=== PATIENT | female | born 1960 | race Caucasian/White ===

== ENCOUNTER 2018-09-02 21:08 | Observation (INO) | payer SELFPAY ==
[2018-09-02 21:08] VITALS: BMI 31.6
[2018-09-02] MEDS ORDERED: Sodium Chloride 0.9% 1,000 ML IV STA (21:59)
[2018-09-02] MEDS ORDERED: Morphine 4 MG/ML VIAL ONE ×2 (22:00→23:45)
--- NOTE | 2018-09-02 22:08 | ED PDOC ---
HPI: General Adult Time Seen by Provider: 09/02/18 21:37 Chief Complaint (Nursing): Upper Extremity Problem/Injury Chief Complaint (Provider): Right sided chest pain History Per: Patient History/Exam Limitations: no limitations Onset/Duration Of Symptoms: Intermittent Episodes, Persistent Current Symptoms Are (Timing): Still Present Additional History Per: Patient Additional Complaint(s): 57yo female, with history of breast cancer and subsequent right mastectomy, hyperthyroidsm, dislipidemia, comes to ER reporting a right sided ch est pain, present intermittently since june. Patient states the pain is right below her right axilla and states she had a work[place] done [place] [facility] CT which revealed a "lump in the area". Patient was then discharged home with Percocet and Decadron, which she has been taking with no relief. Patient reports the pain as sharp and stabbing, and is associated with a poor appetite. She states the pain radiates to right arm, and worsens with deep inspiration and movement. No fever, chills, cough, abdominal pain. No additional complaints. PMD: Dr. Swanson Oncologist: Dr. Goodman Past Medical History Reviewed: Historical Data, Nursing Documentation, Vital Signs Vital Signs: Last Vital Signs Temp 98.3 F 09/02/18 21:23 Pulse 77 09/02/18 21:23 Resp 16 09/02/18 21:23 BP 162/106 H 09/02/18 21:23 Pulse Ox 98 09/02/18 21:23 - Medical History PMH: Hyperthyroidism, Malignancy (breast cancer, diagnosed 2012) - Surgical History Other surgeries: right mastectomy; tubal ligation - Family History Family History: States: No Known Family Hx - Living Arrangements Living Arrangements: With Family - Home Medications Home Medications: Ambulatory Orders Medication Instructions Recorded RX: Dexamethasone [Decadron] 4 mg PO TID 09/02/18 RX: Letrozole [Femara] 2.5 mg PO DAILY 09/02/18 RX: Oxycodone HCl/Acetaminophen 1 tab PO Q6 PRN 09/02/18 [Endocet 10-325 mg Tablet] methIMAzole [Tapazole] 2.5 mg PO DAILY 09/02/18 - Allergies Allergies/Adverse Reactions: Allergies Allergy/AdvReac Type Severity Reaction Status Date / Time No Known Allergies Allergy Verified 02/12/19 21:18 Review of Systems ROS Statement: Except As Marked, All Systems Reviewed And Found Negative Constitutional: Negative for: Fever, Chills Cardiovascular: Positive for: Chest Pain Respiratory: Negative for: Cough, Shortness of Breath Musculoskeletal: Positive for: Arm Pain (right ) Physical Exam - Reviewed Nursing Documentation Reviewed: Yes Vital Signs Reviewed: Yes - Physical Exam Appears: Positive for: Non-toxic, No Acute Distress Head Exam: Positive for: ATRAUMATIC, NORMAL INSPECTION, NORMOCEPHALIC Skin: Positive for: Normal Color Eye Exam: Positive for: Normal appearance Neck: Positive for: Supple Cardiovascular/Chest: Positive for: Regular Rate, Rhythm, Other (tednerness to right infraaxilliary regon; +right mastectomy) Respiratory: Positive for: Normal Breath Sounds. Negative for: Wheezing Gastrointestinal/Abdominal: Positive for: Normal Exam, Soft Extremity: Positive for: Normal ROM Lymphatic: Negative for: Adenopathy Neurologic/Psych: Positive for: Alert, Oriented - Laboratory Results Result Diagrams: 09/03/18 06:05 09/03/18 06:05 - ECG O2 Sat by Pulse Oximetry: 98 (RA) Pulse Ox Interpretation: Normal Medical Decision Making Medical Decision Makinyo female with right sided chest wall pain, with history of breast cancer Plan: -- Labs -- EKG -- Morphine 4mg IV -- Zofran 4mg IV -- IV Fluids 23:00 Patient case discussed with Dr. Adonis Goodman who advises patient will require additional work up for chest wall mass. Had discussion with ED physicians [place] [facility] and was under the impression patient would have a biopsy of the mass, however, biopsy was not performed. Given worsening pain as well as significant findings on CT patient will have repeat CT today. Patient will be admitted case referred to Dr. Chapman. Diagnosis is chest wall mass. Scribe Attestation: Documented by Viridiana Jerry acting as a scribe for Andrew Juarez MD. Provider Attestation: All medical record entries made by the Scribe were at my direction and personally dictated by me. I have reviewed the chart and agree that the record accurately reflects my personal performance of the history, physical exam, medical decision making, and the department course for this patient. I have also personally directed, reviewed, and agree with the discharge instructions and disposition. Disposition - Clinical Impression Clinical Impression: Mass of chest wall - Patient ED Disposition Is Patient to be Admitted: Yes Discussed With DrSharyn: Randi Goodman (Dr Chapman) - Disposition Disposition Time: 23:30 Condition: FAIR
[2018-09-02 22:19] LABS: BASO % 0.3 % (0.0-2.0); EOS % 0.1 % (0.0-4.0); HEMOGLOBIN 13.1 g/dL (12.0-16.0); LYMPH # 1.2 K/uL (1.0-4.3); LYMPH % 9.3 % (20.0-40.0); MEAN CELL VOLUME 85.3 fl (81.0-99.0); MEAN CORPUSCULAR HEMOGLOBIN 27.7 pg (27.0-31.0); MEAN CORPUSCULAR HGB CONC 32.4 g/dL (33.0-37.0); MEAN PLATELET VOLUME 8.3 fl (7.2-11.7); MONO # 0.4 K/uL (0.0-0.8); MONO % 3.4 % (0.0-10.0); NEUT % 86.9 % (50.0-75.0); PLATELET COUNT 349 K/uL (130-400); RBC 4.73 Mil/uL (3.80-5.20); RED CELL DISTRIBUTION WIDTH 13.7 % (11.5-14.5); WHITE BLOOD COUNT 12.6 K/uL (4.8-10.8)
[2018-09-02 22:26] LABS: INR 1.1; PROTHROMBIN TIME 12.7 Seconds (9.8-13.1)
[2018-09-02 22:28] LABS: PARTIAL THROMBOPLASTIN TIME 27.5 Seconds (25.6-37.1)
[2018-09-02 22:30] LABS: ALB/GLOB RATIO 1.2 (1.0-2.1); ALBUMIN 4.2 g/dL (3.5-5.0); ALT/SGPT 20 U/L (9-52); AST/SGOT 32 U/L (14-36); BLOOD UREA NITROGEN 28 mg/dl (7-17); CALCIUM 9.6 mg/dL (8.4-10.2); GFR NON-AFRICAN AMERICAN > 60
[2018-09-02] MEDS ORDERED: Morphine 4 MG/ML VIAL IVP ONE ×2 (23:00→23:42)
[2018-09-02] MEDS ORDERED: Iohexol 300 100 ML IJ ONE (23:09)
[2018-09-02] MEDS ORDERED: Sodium Chloride 0.9% 50 ML IV ONE (23:09)
[2018-09-02 23:29] LABS: BANDS 2 % (0-2); HYPOCHROMIC SLIGHT; LYMPHOCYTE 10 % (20-50); MICROCYTOSIS SLIGHT; MONOCYTE 6 % (0-10); NEUTROPHIL 82 % (42-75); PLATELET ESTIMATE NORMAL (NORMAL); TOTAL CELLS COUNTED 100
[2018-09-02 23:30] LABS: SMUDGE CELLS PRESENT
[2018-09-02 23:48] LABS: SQUAMOUS EPITHIAL 2 /hpf (0-5); URINE BILIRUBIN NEGATIVE (NEGATIVE); URINE BLOOD NEGATIVE (NEGATIVE); URINE CLARITY CLEAR (Clear); URINE COLOR STRAW (YELLOW); URINE GLUCOSE (UA) NEG (NEGATIVE); URINE LEUKOCYTE ESTERASE TRACE Leu/uL (Negative); URINE PROTEIN NEGATIVE (NEGATIVE); URINE UROBILINOGEN 0.2-1.0 mg/dL (0.2-1.0)
--- NOTE | 2018-09-03 00:25 | CP.PCM.HP ---
<Jeannie Lynch - Last Filed: 09/03/18 03:13> History of Present Illness - History of Present Illness History of Present Illness: 57 yo F with history of hyperthyroidism, dyslipidemia (does not take meds) and breast cancer dx in 2012 with subsequent right mastectomy and chemotherapy, admitted for chest wall mass. Patient came to ED with right sided chest pain (as well as right sided upper back pain), states pain is 10/10, and constant, has bouts of worsening throughout the day, radiates to right shoulder, and is worse with movement. She states pain has been present throughout the month of July into August and that she has been to [facility] 3 times, last two times were 08/27 (sent home 08/28 with decadron and percocet and instucted to follow up with her oncologist) but when she felt no relief, she went back on Wednesday 08/30 but was discharged from ED. Patient states that she had a CT scan done at [facility] ED that revealed a lump in right chest/axilla (?), but does not have report with her. Reports she has been taking prescribed medications decadron and percocet but without relief, and since her oncologist is affiliated with [facility], came here instead. She also reports intermittent nausea, but no vomiting. Also endorses episodic constipation. Denies fevers, chills, cough, headache, central chest pain, diaphoresis, shortness of breath, abdominal pain, dysuria, diarrhea. States she has not taken her regular medications since 08/30. PMD: Dr. wSanson Oncologist: Dr. Hugh Goodman Past Med hx: hyperthyroidism, breast ca Past Surg hx: right sided mastectomy, BTL Social hx: former smoker (4-5 cig/day x 15 yrs, quit before her cancer diagnosis), denies alcohol or drug use. Lives at home with her daughter. Fam hx: no family history of cancer Allergies: nkda Medications: home meds tapazole (methimazole 2.5 mg daily), Letrozole 2.5 mg daily; Vitamin D. Recent prescriptions from [facility] decadron 4 mg tab TID, endocet (oxycodone/acetaminophen) 10-325mg. NOK, Son, Stephen Denise; [phone] Code Status: Full code ED course: Vitals: BP 162/106 (likely pain induced, as BP came down to 137/90 without antihypertensive med), HR 77, O2 sat 98, Sancho 98.3, RR 16 EKG: NSR at 64 bpm CBC WBC 12.6 CMP BUN 28, relatively unremarkable Coags PT 12.7 INR 1.1 UA trace LE, neg nitrates Received: zofran 4 mg x1 morphine 4 mg x1 morphine 6 mg x1 1L NS bolus ED attending discussed case with Dr. Adonis Goodman who advised patient will require additional work up for chest wall mass. As per ED: Oncologist had discussion with ED physicians at [facility] and was under the impression patient would have a biopsy of the mass, however, biopsy was not performed. Given worsening pain as well as significant findings on CT patient will have repeat CT today. Chest/Neck CT done Present on Admission - Present on Admission Any Indicators Present on Admission: No Review of Systems - Constitutional Constitutional: absent: Chills, Fever - Breasts Breasts: As Per HPI - Cardiovascular Cardiovascular: absent: Chest Pain - Respiratory Respiratory: absent: Cough, Dyspnea - Gastrointestinal Gastrointestinal: Constipation, Nausea. absent: Abdominal Pain, Melena, Vomiting - Genitourinary Genitourinary: absent: Dysuria, Hematuria - Musculoskeletal Musculoskeletal: As Per HPI Past Patient History - Past Social History Smoking Status: Former Smoker Alcohol: None Drugs: Denies Home Situation {Lives}: With Family - CARDIAC Hx Cardiac Disorders: Yes - PULMONARY Hx Respiratory Disorders: No - NEUROLOGICAL Hx Neurological Disorder: No - HEENT Hx HEENT Problems: No - RENAL Hx Chronic Kidney Disease: No - ENDOCRINE/METABOLIC Hx Hyperthyroidism: Yes - HEMATOLOGICAL/ONCOLOGICAL Hx Cancer: Yes (breast) - INTEGUMENTARY Hx Dermatological Problems: No - MUSCULOSKELETAL/RHEUMATOLOGICAL Hx Musculoskeletal Disorders: No - GASTROINTESTINAL Hx Gastrointestinal Disorders: No - GENITOURINARY/GYNECOLOGICAL Hx Genitourinary Disorders: No - PSYCHIATRIC Hx Psychophysiologic Disorder: No Hx Substance Use: No - SURGICAL HISTORY Hx Liver Transplant: No Hx Mastectomy: Yes Meds Allergies/Adverse Reactions: Allergies Allergy/AdvReac Type Severity Reaction Status Date / Time No Known Allergies Allergy Verified 09/02/18 21:18 Physical Exam - Constitutional Additional comments: uncomfortable - Eye Exam Eye Exam: Normal appearance - ENT Exam ENT Exam: Mucous Membranes Moist - Neck Exam Neck exam: Positive for: Full Rom - Respiratory Exam Respiratory Exam: Clear to Auscultation Bilateral, NORMAL BREATHING PATTERN. absent: Wheezes, Respiratory Distress - Cardiovascular Exam Cardiovascular Exam: REGULAR RHYTHM, +S1, +S2 - GI/Abdominal Exam GI & Abdominal Exam: Normal Bowel Sounds, Soft. absent: Tenderness - Extremities Exam Extremities exam: Negative for: calf tenderness, pedal edema - Back Exam Additional comments: pain on palpation along right hemithorax, along anterior as well - Neurological Exam Neurological exam: Alert, Oriented x3 - Skin Skin Exam: Dry - Additional Findings Additional findings: pain on palpation of right sided hemothorax, anterior and posterior difficult to palpate right sided axilla due to patient discomfort Results - Vital Signs Recent Vital Signs: Last Vital Signs Temp 98.5 F 09/03/18 00:02 Pulse 72 09/03/18 00:02 Resp 16 09/03/18 00:02 BP 137/90 09/03/18 00:02 Pulse Ox 99 09/03/18 00:02 - Labs Result Diagrams: 09/02/18 22:08 09/02/18 22:08 Labs: Laboratory Results - last 24 hr 09/02/18 09/02/18 09/02/18 22:08 22:08 22:08 WBC 12.6 H RBC 4.73 Hgb 13.1 Hct 40.3 MCV 85.3 MCH 27.7 MCHC 32.4 L RDW 13.7 Plt Count 349 MPV 8.3 Neut % (Auto) 86.9 H Lymph % (Auto) 9.3 L [place] % (Auto) 3.4 Eos % (Auto) 0.1 Baso % (Auto) 0.3 Neut # (Auto) 11.0 H Lymph # (Auto) 1.2 [place] # (Auto) 0.4 Eos # (Auto) 0.0 Baso # (Auto) 0.0 Neutrophils % (Manual) 82 H Band Neutrophils % 2 Lymphocytes % (Manual) 10 L Monocytes % (Manual) 6 Smudge Cells Present Platelet Estimate Normal Hypochromasia (manual) Slight Microcytosis (manual) Slight PT 12.7 INR 1.1 APTT 27.5 Sodium 136 Potassium 4.8 Chloride 97 L Carbon Dioxide 27 Anion Gap 17 BUN 28 H Creatinine 0.9 Est GFR ( Amer) > 60 Est GFR (Non-Af Amer) > 60 Random Glucose 112 H Calcium 9.6 Total Bilirubin 0.5 AST 32 ALT 20 Alkaline Phosphatase 109 Total Protein 7.9 Albumin 4.2 Globulin 3.7 Albumin/Globulin Ratio 1.2 Urine Color Urine Clarity Urine pH Ur Specific [place] Urine Protein Urine Glucose (UA) Urine Ketones Urine Blood Urine Nitrate Urine Bilirubin Urine Urobilinogen Ur Leukocyte Esterase Urine RBC (Auto) Urine Microscopic WBC Ur Squamous Epith Cells 09/02/18 23:43 WBC RBC Hgb Hct MCV MCH MCHC RDW Plt Count MPV Neut % (Auto) Lymph % (Auto) [place] % (Auto) Eos % (Auto) Baso % (Auto) Neut # (Auto) Lymph # (Auto) [place] # (Auto) Eos # (Auto) Baso # (Auto) Neutrophils % (Manual) Band Neutrophils % Lymphocytes % (Manual) Monocytes % (Manual) Smudge Cells Platelet Estimate Hypochromasia (manual) Microcytosis (manual) PT INR APTT Sodium Potassium Chloride Carbon Dioxide Anion Gap BUN Creatinine Est GFR ( Amer) Est GFR (Non-Af Amer) Random Glucose Calcium Total Bilirubin AST ALT Alkaline Phosphatase Total Protein Albumin Globulin Albumin/Globulin Ratio Urine Color Straw Urine Clarity Clear Urine pH 7.0 Ur Specific [place] 1.017 Urine Protein Negative Urine Glucose (UA) Neg Urine Ketones Negative Urine Blood Negative Urine Nitrate Negative Urine Bilirubin Negative Urine Urobilinogen 0.2-1.0 Ur Leukocyte Esterase Trace Urine RBC (Auto) < 1 Urine Microscopic WBC 3 Ur Squamous Epith Cells 2 Assessment & Plan - Assessment and Plan (Free Text) Assessment: 57 yo F with history of hyperthyroidism, dyslipidemia and breast cancer; with recent CT at [facility] that showed chest wall mass; admitted for workup of chest wall mass. Plan: Chest Wall Mass - Hx breast cancer, chemotherapy and right sided mastectomy - Oncology consult - Dr. Hugh Goodman; recs/input appreciated - F/u results of CT done in ED - Pain control w/ morphine scale, starting with 1 mg q4hrs prn for mild, 2 mg q4hrs prn for mod, 4 mg q4hrs prn for severe pain; reassess pain scale as needed - NPO for possible biopsy Nausea - Zofran 4 mg q6hrs prn Leukocytosis - WBC 12, may be reactive, no other signs/symptoms infection - Monitor on CBC Elevated BUN - NS @ 100 ml/hr - BMP in am Hyperthyroidism - Resume home med tapazole Diet - NPO for possible biopsy in am; otherwise heart healthy diet DVT prophylaxis - SCD for now Code Status - NOK/surrogate decision maker: son, Stephen Denise; [phone] - Code Status: Full code Pt seen/discussed w/ Dr. Chapman. <Gilbert Chapman - Last Filed: 09/03/18 07:44> Results - Vital Signs Recent Vital Signs: Last Vital Signs Temp 97.7 F 09/03/18 00:53 Pulse 61 09/03/18 00:53 Resp 18 09/03/18 00:53 BP 151/89 H 09/03/18 00:53 Pulse Ox 95 09/03/18 00:53 - Labs Result Diagrams: 09/03/18 06:05 09/03/18 06:05 Labs: Laboratory Results - last 24 hr 09/02/18 09/02/18 09/02/18 22:08 22:08 22:08 WBC 12.6 H RBC 4.73 Hgb 13.1 Hct 40.3 MCV 85.3 MCH 27.7 MCHC 32.4 L RDW 13.7 Plt Count 349 MPV 8.3 Neut % (Auto) 86.9 H Lymph % (Auto) 9.3 L [place] % (Auto) 3.4 Eos % (Auto) 0.1 Baso % (Auto) 0.3 Neut # (Auto) 11.0 H Lymph # (Auto) 1.2 [place] # (Auto) 0.4 Eos # (Auto) 0.0 Baso # (Auto) 0.0 Neutrophils % (Manual) 82 H Band Neutrophils % 2 Lymphocytes % (Manual) 10 L Monocytes % (Manual) 6 Smudge Cells Present Platelet Estimate Normal Hypochromasia (manual) Slight Microcytosis (manual) Slight PT 12.7 INR 1.1 APTT 27.5 Sodium 136 Potassium 4.8 Chloride 97 L Carbon Dioxide 27 Anion Gap 17 BUN 28 H Creatinine 0.9 Est GFR ( Amer) > 60 Est GFR (Non-Af Amer) > 60 Random Glucose 112 H Calcium 9.6 Total Bilirubin 0.5 AST 32 ALT 20 Alkaline Phosphatase 109 Total Protein 7.9 Albumin 4.2 Globulin 3.7 Albumin/Globulin Ratio 1.2 Urine Color Urine Clarity Urine pH Ur Specific [place] Urine Protein Urine Glucose (UA) Urine Ketones Urine Blood Urine Nitrate Urine Bilirubin Urine Urobilinogen Ur Leukocyte Esterase Urine RBC (Auto) Urine Microscopic WBC Ur Squamous Epith Cells 09/02/18 09/03/18 09/03/18 23:43 06:05 06:05 WBC 12.4 H RBC 4.45 Hgb 12.2 Hct 38.1 MCV 85.5 MCH 27.5 MCHC 32.2 L RDW 14.1 Plt Count 320 MPV 8.1 Neut % (Auto) 81.4 H Lymph % (Auto) 11.6 L [place] % (Auto) 6.9 Eos % (Auto) 0.0 Baso % (Auto) 0.1 Neut # (Auto) 10.1 H Lymph # (Auto) 1.4 [place] # (Auto) 0.9 H Eos # (Auto) 0.0 Baso # (Auto) 0.0 Neutrophils % (Manual) Band Neutrophils % Lymphocytes % (Manual) Monocytes % (Manual) Smudge Cells Platelet Estimate Hypochromasia (manual) Microcytosis (manual) PT INR APTT Sodium 137 Potassium 4.6 Chloride 100 Carbon Dioxide 28 Anion Gap 14 BUN 24 H Creatinine 0.9 Est GFR ( Amer) > 60 Est GFR (Non-Af Amer) > 60 Random Glucose 98 Calcium 9.1 Total Bilirubin AST ALT Alkaline Phosphatase Total Protein Albumin Globulin Albumin/Globulin Ratio Urine Color Straw Urine Clarity Clear Urine pH 7.0 Ur Specific [place] 1.017 Urine Protein Negative Urine Glucose (UA) Neg Urine Ketones Negative Urine Blood Negative Urine Nitrate Negative Urine Bilirubin Negative Urine Urobilinogen 0.2-1.0 Ur Leukocyte Esterase Trace Urine RBC (Auto) < 1 Urine Microscopic WBC 3 Ur Squamous Epith Cells 2 Attending/Attestation - Attestation I have personally seen and examined this patient.: Yes I have fully participated in the care of the patient.: Yes I have reviewed all pertinent clinical information: Yes Notes (Text): 09/03/18 07:14 I saw, examined and discussed this patient with Dr Corbin. I agree with the assessment and plan outlined above. This 57 years old female with hx of Breast Ca, Dx 2013 with mastectomy and chemotherapy. She comes with pain to the anterior and posterior right chest wall, the lateral right chest wall and psignificant pain with swelling at the left axilla. CT scan of Chest: Increase in the size of the metastatic right subclavian lymhadenopathy. Interval appearance of neoplastic infiltration of the right lower lobe. Interval appearance of neoplastic infiltration of the base of the right pleura. Interval appearance of right hilar lymphadenopathy. probably metastatic. The patient will be treated with pain management for intractable chest pain due to Metastatic breast Cancer. Palliative consult is appropriate Dr Goodman oncologist is consulted Treat Hyperthyroidism Gilbert Chapman MD
[2018-09-03] MEDS ORDERED: Morphine 4 MG/ML VIAL IVP PRN (00:33)
[2018-09-03] MEDS: Sodium Chloride 0.9% 1,000 ML IV SCH ×3 (00:54→20:14)
[2018-09-03] MEDS: Morphine 4 MG/ML VIAL IVP PRN ×5 (01:57→16:53)
[2018-09-03 06:28] LABS: BASO % 0.1 % (0.0-2.0); HEMOGLOBIN 12.2 g/dL (12.0-16.0); LYMPH # 1.4 K/uL (1.0-4.3); LYMPH % 11.6 % (20.0-40.0); MEAN CELL VOLUME 85.5 fl (81.0-99.0); MEAN CORPUSCULAR HEMOGLOBIN 27.5 pg (27.0-31.0); MEAN CORPUSCULAR HGB CONC 32.2 g/dL (33.0-37.0); MEAN PLATELET VOLUME 8.1 fl (7.2-11.7); MONO # 0.9 K/uL (0.0-0.8); MONO % 6.9 % (0.0-10.0); NEUT # 10.1 K/uL (1.8-7.0); NEUT % 81.4 % (50.0-75.0); RBC 4.45 Mil/uL (3.80-5.20); RED CELL DISTRIBUTION WIDTH 14.1 % (11.5-14.5); WHITE BLOOD COUNT 12.4 K/uL (4.8-10.8)
[2018-09-03 06:37] LABS: BLOOD UREA NITROGEN 24 mg/dl (7-17); CALCIUM 9.1 mg/dL (8.4-10.2); GFR NON-AFRICAN AMERICAN > 60
[2018-09-03] MEDS: methIMAzole 5 MG TAB PO SCH (08:20)
--- NOTE | 2018-09-03 10:00 | CARD ---
APPROVED REPORT Date of service: 09/02/2018 EKG Measurement Heart [id number] <Conclusion> Normal sinus rhythm Normal ECG
--- NOTE | 2018-09-03 10:54 | CP.PCM.CON ---
History of Present Illness - History of Present Illness History of Present Illness: This is a 57 yrs old female who in 2012 had a infiltrating ductal right breast carcinoma. She had a radical mastectomy and was followed by chemotherapy. She had involvement of the axillary nodes and she was HER negative and ER positive. She had no distant metastasis. She was on letrozole until now. She has been followed up as an outpatient and has been stable. A CT scan done in aug 2017 was negative for metastasis and recurrence . She was admitted to [facility] a few times for pancreatitis, but never had any breast problems. Now she started c/o pain and swelling in the right arm, and even thougt he swelling went down a little the pain is very severe. The pain is in the right chest wall, anterior chest, back and severe down the axilla and the right arm.. A CT scan done in the ER showed a right hilar adenopathy, and nodules in both lungs , more on the lower lobe of right lung. There is increased adenopathy around the subclavian which may be responsible for the pain. Does not smoke or drink Past Patient History - Past Medical History & Family History Past Medical History?: Yes - Past Social History Smoking Status: Former Smoker Alcohol: None Drugs: Denies Home Situation {Lives}: With Family - CARDIAC Hx Cardiac Disorders: Yes - PULMONARY Hx Respiratory Disorders: No - NEUROLOGICAL Hx Neurological Disorder: No - HEENT Hx HEENT Problems: No - RENAL Hx Chronic Kidney Disease: No - ENDOCRINE/METABOLIC Hx Hyperthyroidism: Yes - HEMATOLOGICAL/ONCOLOGICAL Hx Cancer: Yes (breast) - INTEGUMENTARY Hx Dermatological Problems: No - MUSCULOSKELETAL/RHEUMATOLOGICAL Hx Musculoskeletal Disorders: No - GASTROINTESTINAL Hx Gastrointestinal Disorders: No - GENITOURINARY/GYNECOLOGICAL Hx Genitourinary Disorders: No - PSYCHIATRIC Hx Psychophysiologic Disorder: No Hx Substance Use: No - SURGICAL HISTORY Hx Liver Transplant: No Hx Mastectomy: Yes - ANESTHESIA Hx Anesthesia: Yes Hx Anesthesia Reactions: No Meds Allergies/Adverse Reactions: Allergies Allergy/AdvReac Type Severity Reaction Status Date / Time No Known Allergies Allergy Verified 09/02/18 21:18 - Medications Medications: Current Medications Sodium Chloride (Sodium Chloride 0.9%) 1,000 mls @ 100 mls/hr IV .Q10H [facility] Stop: 09/04/18 00:32 Last Admin: 09/03/18 00:54 Dose: 100 mls/hr Methimazole (Tapazole) 2.5 mg PO DAILY [facility] Last Admin: 09/03/18 08:20 Dose: 2.5 mg Morphine Sulfate (Morphine) 1 mg IVP Q4 PRN PRN Reason: Pain, Mild (1-3) Morphine Sulfate (Morphine) 2 mg IVP Q4 PRN PRN Reason: Pain, moderate (4-7) Last Admin: 09/03/18 04:23 Dose: 2 mg Morphine Sulfate (Morphine) 4 mg IVP Q4 PRN PRN Reason: Pain, severe (8-10) Last Admin: 09/03/18 08:19 Dose: 4 mg Ondansetron HCl (Zofran Inj) 4 mg IVP Q6 PRN PRN Reason: Nausea/Vomiting Physical Exam - Additional Findings Additional findings: Physical exam; Alert, well oriented in acute distress from pain. neck; alert, well oriented in no acute distress Chest;Clear,.Severe tenderness in the chest wall on the right, no rales or rhonchi Heart; RSR, no murmur Abd; soft, no mass no h/s megaly Right arm edematous with tenderness in the whole arm especially upper arm. Results - Vital Signs Recent Vital Signs: Last Vital Signs Temp 97.9 F 09/03/18 08:22 Pulse 73 09/03/18 08:22 Resp 19 09/03/18 08:22 BP 133/80 09/03/18 08:22 Pulse Ox 96 09/03/18 08:22 - Labs Result Diagrams: 09/03/18 06:05 09/03/18 06:05 Labs: Laboratory Results - last 24 hr 09/02/18 09/02/18 09/02/18 22:08 22:08 22:08 WBC 12.6 H RBC 4.73 Hgb 13.1 Hct 40.3 MCV 85.3 MCH 27.7 MCHC 32.4 L RDW 13.7 Plt Count 349 MPV 8.3 Neut % (Auto) 86.9 H Lymph % (Auto) 9.3 L [place] % (Auto) 3.4 Eos % (Auto) 0.1 Baso % (Auto) 0.3 Neut # (Auto) 11.0 H Lymph # (Auto) 1.2 [place] # (Auto) 0.4 Eos # (Auto) 0.0 Baso # (Auto) 0.0 Neutrophils % (Manual) 82 H Band Neutrophils % 2 Lymphocytes % (Manual) 10 L Monocytes % (Manual) 6 Smudge Cells Present Platelet Estimate Normal Hypochromasia (manual) Slight Microcytosis (manual) Slight PT 12.7 INR 1.1 APTT 27.5 Sodium 136 Potassium 4.8 Chloride 97 L Carbon Dioxide 27 Anion Gap 17 BUN 28 H Creatinine 0.9 Est GFR ( Amer) > 60 Est GFR (Non-Af Amer) > 60 Random Glucose 112 H Calcium 9.6 Total Bilirubin 0.5 AST 32 ALT 20 Alkaline Phosphatase 109 Total Protein 7.9 Albumin 4.2 Globulin 3.7 Albumin/Globulin Ratio 1.2 TSH 3rd Generation Beta HCG, Quant Urine Color Urine Clarity Urine pH Ur Specific [place] Urine Protein Urine Glucose (UA) Urine Ketones Urine Blood Urine Nitrate Urine Bilirubin Urine Urobilinogen Ur Leukocyte Esterase Urine RBC (Auto) Urine Microscopic WBC Ur Squamous Epith Cells 09/02/18 09/03/18 09/03/18 23:43 06:05 06:05 WBC 12.4 H RBC 4.45 Hgb 12.2 Hct 38.1 MCV 85.5 MCH 27.5 MCHC 32.2 L RDW 14.1 Plt Count 320 MPV 8.1 Neut % (Auto) 81.4 H Lymph % (Auto) 11.6 L [place] % (Auto) 6.9 Eos % (Auto) 0.0 Baso % (Auto) 0.1 Neut # (Auto) 10.1 H Lymph # (Auto) 1.4 [place] # (Auto) 0.9 H Eos # (Auto) 0.0 Baso # (Auto) 0.0 Neutrophils % (Manual) Band Neutrophils % Lymphocytes % (Manual) Monocytes % (Manual) Smudge Cells Platelet Estimate Hypochromasia (manual) Microcytosis (manual) PT INR APTT Sodium 137 Potassium 4.6 Chloride 100 Carbon Dioxide 28 Anion Gap 14 BUN 24 H Creatinine 0.9 Est GFR ( Amer) > 60 Est GFR (Non-Af Amer) > 60 Random Glucose 98 Calcium 9.1 Total Bilirubin AST ALT Alkaline Phosphatase Total Protein Albumin Globulin Albumin/Globulin Ratio TSH 3rd Generation Beta HCG, Quant Urine Color Straw Urine Clarity Clear Urine pH 7.0 Ur Specific [place] 1.017 Urine Protein Negative Urine Glucose (UA) Neg Urine Ketones Negative Urine Blood Negative Urine Nitrate Negative Urine Bilirubin Negative Urine Urobilinogen 0.2-1.0 Ur Leukocyte Esterase Trace Urine RBC (Auto) < 1 Urine Microscopic WBC 3 Ur Squamous Epith Cells 2 09/03/18 09/03/18 07:08 08:36 WBC RBC Hgb Hct MCV MCH MCHC RDW Plt Count MPV Neut % (Auto) Lymph % (Auto) [place] % (Auto) Eos % (Auto) Baso % (Auto) Neut # (Auto) Lymph # (Auto) [place] # (Auto) Eos # (Auto) Baso # (Auto) Neutrophils % (Manual) Band Neutrophils % Lymphocytes % (Manual) Monocytes % (Manual) Smudge Cells Platelet Estimate Hypochromasia (manual) Microcytosis (manual) PT INR APTT Sodium Potassium Chloride Carbon Dioxide Anion Gap BUN Creatinine Est GFR ( Amer) Est GFR (Non-Af Amer) Random Glucose Calcium Total Bilirubin AST ALT Alkaline Phosphatase Total Protein Albumin Globulin Albumin/Globulin Ratio TSH 3rd Generation 0.48 Beta HCG, Quant < 2.39 Urine Color Urine Clarity Urine pH Ur Specific [place] Urine Protein Urine Glucose (UA) Urine Ketones Urine Blood Urine Nitrate Urine Bilirubin Urine Urobilinogen Ur Leukocyte Esterase Urine RBC (Auto) Urine Microscopic WBC Ur Squamous Epith Cells Assessment & Plan - Assessment and Plan (Free Text) Assessment: Impression; nodules in the lung paranchyma bilaterally, and hilar adenopathy Neck; supple, some adenopathy on the left cervical area. Chest; Clear, no rales or rhonchi Heart; RSR, no murmur Abd; Soft, no mass,no h/s megaly Plan: Plan; Will request a biopsy of the lung lesion with IR to determine if this is recurrent disease or new lung cancer. - Date & Time Date: 09/03/18 Time: 11:45
[2018-09-03] MEDS: oxyCODONE 20 mg ER Tab (oxyCONTIN) PO SCH ×2 (14:31→21:10)
--- NOTE | 2018-09-03 17:11 | CT ---
Date of service: 09/02/2018 PROCEDURE: CT Neck, Chest, Abdomen and Pelvis with contrast HISTORY: right chest pain; hx cancer COMPARISON: None available. TECHNIQUE: Contrast dose: 95 mL Omnipaque 300 Radiation dose: Total exam DLP = 684.4 mGy-cm. This CT exam was performed using one or more of the following dose reduction techniques: Automated exposure control, adjustment of the mA and/or kV according to patient size, and/or use of iterative reconstruction technique. FINDINGS: CT OF THE NECK: PHARYNX: Nasopharynx: Unremarkable. Oropharnx: There is lack of distension both the left vallecula and the left piriform sinus. This may be artifactual but correlation with direct visual inspection is suggested. No mass identified. Otherwise unremarkable. Hypopharynx: Unremarkable. LYMPH NODES: Unremarkable. VASCULATURE: Unremarkable. GLANDS: Normal parotid and submandibular glands. There is a nodule in the left lobe of the thyroid measuring approximately 1.7 x 2.1 x 2.8 cm. This contains with percutaneous biopsy. Correlate with thyroid ultrasound. CERVICAL SPINE: Unremarkable. CT OF THE CHEST: LUNGS: Multiple bilateral pulmonary nodules. Largest nodule seen in the superior segment right lower lobe, irregularly shaped, approximately 1.8 cm in the transverse plane. Bilateral parenchymal and pleural-based masses. Suspicious for metastatic disease. There are scattered bilateral nonspecific ground-glass opacities. No evidence of tara consolidation. MEDIASTINUM: Unremarkable thoracic aorta. No aneurysm or dissection. Normal sized heart. Pulmonary arterial truck unremarkable. No vascular congestion. Mediastinal and bilateral hilar lymphadenopathy is noted. There are enlarged right subclavian lymph nodes, increased in size from previous examination. An enlarged right axillary node is identified. Status post right mastectomy. PLEURA: No pleural fluid. No pneumothorax. BONES: No fracture. No destructive lesion. OTHER FINDINGS: Images through the upper abdomen demonstrate old cortical scarring of the upper pole right kidney associated with nodular calcification, likely dystrophic. IMPRESSION: There is lack of adequate distention of the left vallecula and left piriform sinus. Although this may be artifactual in origin, correlation with direct visual inspection is suggested. No mass identified. No significant cervical lymphadenopathy. 2.8 cm mass in the left lobe of the thyroid with thyroid ultrasound examination. Probable pulmonary metastasis. Nonspecific scattered bilateral ground-glass pulmonary opacities. No tara consolidation. Mediastinal and bilateral hilar lymphadenopathy. Enlarged right subclavian lymph nodes. Right axillary lymphadenopathy. The preliminary findings for this examination were reported by [facility] at 12:25 a.m. on 09/03/2018.. There is concurrence of this report with the preliminary findings.
--- NOTE | 2018-09-03 18:15 | CP.PCM.CON ---
<Korin Andersen - Last Filed: 09/03/18 19:09> History of Present Illness - History of Present Illness History of Present Illness: Surgery consult note for Dr. Chong Consulted for: lymphadenopathy, possible lymph node biopsy Pt is a 57F with PMH including invasive ductal carcinoma of the right breast (ER+, Her2-) with axillary involvement s/p mastectomy and axillary dissection by Dr. Chong in 2012 and subsequent chemotherapy but no radiation treatment. Patient presented to the [facility] ED after 6 weeks of pain in the right chest and right arm pain and swelling. Patient originally presented to [facility] 2x and was discharged with pain medications and instructions to follow up with her oncologist. Pain was not tolerable, so patient presented to [facility], where her oncologist, Dr. Goodman, works. Patient states that pain is constant but varies in intensity, starts in the chest/shoulder and then travels down entire arm. Patient also reports parasthesias of the entire hand, but denies weakness, pal mary, temperature changes. Pain also radiates up right side of neck and upper back intermittently. Patient complains of intermittent nausea and poor appetite, but denies chest pressure, SOB, fevers, chills, hemoptysis, cough, abdominal pain, or any other symptoms. Patient is post-menopausal, denies any family history of breast cancer. CT of neck and chest showed enlarged lymph nodes in the right subclavian area, right axilla, BL pleura, hilum, as well as BL pleural masses and a nodular mass of the left thyroid. Surgery team was consulted for possible excisional lymph node biopsy PMH: invasive ductal carcinoma of the right breast, hyperthyroidism, hyperlipidemia PSH: right mastectomy, right axillary dissection, BL tubal ligation, chemoport insertion ALL: nkda Social: former smoker 1/2 PPD cigarettes for 15 years, former occasional drinker, denies drugs Review of Systems - Review of Systems All systems: reviewed and no additional remarkable complaints except (as per HPI) Past Patient History - Past Medical History & Family History Past Medical History?: Yes Past Family History: Reviewed and not pertinent - Past Social History Smoking Status: Former Smoker Alcohol: None Drugs: Denies Home Situation {Lives}: With Family - CARDIAC Hx Cardiac Disorders: Yes Hx Hypercholesterolemia: Yes - PULMONARY Hx Respiratory Disorders: No - NEUROLOGICAL Hx Neurological Disorder: No - HEENT Hx HEENT Problems: No - RENAL Hx Chronic Kidney Disease: No - ENDOCRINE/METABOLIC Hx Hyperthyroidism: Yes - HEMATOLOGICAL/ONCOLOGICAL Hx Cancer: Yes (breast) - INTEGUMENTARY Hx Dermatological Problems: No - MUSCULOSKELETAL/RHEUMATOLOGICAL Hx Musculoskeletal Disorders: No - GASTROINTESTINAL Hx Gastrointestinal Disorders: No - GENITOURINARY/GYNECOLOGICAL Hx Genitourinary Disorders: No - PSYCHIATRIC Hx Psychophysiologic Disorder: No Hx Substance Use: No - SURGICAL HISTORY Hx Liver Transplant: No Hx Mastectomy: Yes (right total mastectomy with axillary dissection) Hx Tubal Ligation: Yes Hx Vascular Access Device: Yes (chemoport) - ANESTHESIA Hx Anesthesia: Yes Hx Anesthesia Reactions: No Meds Allergies/Adverse Reactions: Allergies Allergy/AdvReac Type Severity Reaction Status Date / Time No Known Allergies Allergy Verified 09/02/18 21:18 - Medications Medications: Current Medications Sodium Chloride (Sodium Chloride 0.9%) 1,000 mls @ 100 mls/hr IV .Q10H [facility] Stop: 09/04/18 00:32 Last Admin: 09/03/18 12:04 Dose: 100 mls/hr Methimazole (Tapazole) 2.5 mg PO DAILY [facility] Last Admin: 09/03/18 08:20 Dose: 2.5 mg Morphine Sulfate (Morphine) 1 mg IVP Q4 PRN PRN Reason: Pain, Mild (1-3) Morphine Sulfate (Morphine) 2 mg IVP Q4 PRN PRN Reason: Pain, moderate (4-7) Last Admin: 09/03/18 04:23 Dose: 2 mg Morphine Sulfate (Morphine) 4 mg IVP Q4 PRN PRN Reason: Pain, severe (8-10) Last Admin: 09/03/18 16:53 Dose: 4 mg Ondansetron HCl (Zofran Inj) 4 mg IVP Q6 PRN PRN Reason: Nausea/Vomiting Oxycodone HCl (Oxycontin Extended Release Tab) 20 mg PO Q12 [facility] Last Admin: 09/03/18 14:31 Dose: 20 mg Physical Exam - Constitutional Appears: Well, Non-toxic, No Acute Distress - Head Exam Head Exam: ATRAUMATIC, NORMOCEPHALIC - Eye Exam Eye Exam: Normal appearance. absent: Conjunctival injection, Scleral icterus - ENT Exam ENT Exam: Mucous Membranes Moist, Normal Oropharynx - Neck Exam Neck exam: Positive for: Full Rom Additional comments: palpable swelling of the left thyroid--mobile no anterior or posterior palpable lymphadenopathy. Palpable subcutaneous supraclavicular mass approximately 2cm in diameter--mobile, non-tender - Respiratory Exam Respiratory Exam: NORMAL BREATHING PATTERN. absent: Accessory Muscle Use, Respiratory Distress - Cardiovascular Exam Cardiovascular Exam: RRR - GI/Abdominal Exam GI & Abdominal Exam: Soft. absent: Distended, Tenderness - Extremities Exam Extremities exam: Positive for: pedal pulses present. Negative for: calf tenderness, pedal edema Additional comments: right arm with mild swelling, Full ROM, elderly companion strength decreased by pain, decreased light sensation over the entire arm, hand, and fingers 3-5 Right axilla exquisitely tender to palpation without palpable masses, erythema, fluctuance, or skin changes - Neurological Exam Neurological exam: Alert, Motor Sensory Deficit (see extremity exam above), Oriented x3 - Psychiatric Exam Psychiatric exam: Normal Affect, Normal Mood - Skin Skin Exam: Dry, Normal Color, Warm - Additional Findings Additional findings: right chests s/p mastectomy--no gross skin changes, no palpable masses, no swelling Left breast no skin changes, gross deformities, no nipple inversion/discharge, no palpable masses, no axillary masses or tenderness Results - Vital Signs Recent Vital Signs: Last Vital Signs Temp 98 F 09/03/18 16:12 Pulse 71 09/03/18 16:12 Resp 18 09/03/18 16:12 BP 110/69 09/03/18 16:12 Pulse Ox 98 09/03/18 16:12 - Labs Result Diagrams: 09/03/18 06:05 09/03/18 06:05 Labs: Laboratory Results - last 24 hr 09/02/18 09/02/18 09/02/18 22:08 22:08 22:08 WBC 12.6 H RBC 4.73 Hgb 13.1 Hct 40.3 MCV 85.3 MCH 27.7 MCHC 32.4 L RDW 13.7 Plt Count 349 MPV 8.3 Neut % (Auto) 86.9 H Lymph % (Auto) 9.3 L [place] % (Auto) 3.4 Eos % (Auto) 0.1 Baso % (Auto) 0.3 Neut # (Auto) 11.0 H Lymph # (Auto) 1.2 [place] # (Auto) 0.4 Eos # (Auto) 0.0 Baso # (Auto) 0.0 Neutrophils % (Manual) 82 H Band Neutrophils % 2 Lymphocytes % (Manual) 10 L Monocytes % (Manual) 6 Smudge Cells Present Platelet Estimate Normal Hypochromasia (manual) Slight Microcytosis (manual) Slight PT 12.7 INR 1.1 APTT 27.5 Sodium 136 Potassium 4.8 Chloride 97 L Carbon Dioxide 27 Anion Gap 17 BUN 28 H Creatinine 0.9 Est GFR ( Amer) > 60 Est GFR (Non-Af Amer) > 60 Random Glucose 112 H Calcium 9.6 Total Bilirubin 0.5 AST 32 ALT 20 Alkaline Phosphatase 109 Total Protein 7.9 Albumin 4.2 Globulin 3.7 Albumin/Globulin Ratio 1.2 TSH 3rd Generation Beta HCG, Quant Urine Color Urine Clarity Urine pH Ur Specific [place] Urine Protein Urine Glucose (UA) Urine Ketones Urine Blood Urine Nitrate Urine Bilirubin Urine Urobilinogen Ur Leukocyte Esterase Urine RBC (Auto) Urine Microscopic WBC Ur Squamous Epith Cells 09/02/18 09/03/18 09/03/18 23:43 06:05 06:05 WBC 12.4 H RBC 4.45 Hgb 12.2 Hct 38.1 MCV 85.5 MCH 27.5 MCHC 32.2 L RDW 14.1 Plt Count 320 MPV 8.1 Neut % (Auto) 81.4 H Lymph % (Auto) 11.6 L [place] % (Auto) 6.9 Eos % (Auto) 0.0 Baso % (Auto) 0.1 Neut # (Auto) 10.1 H Lymph # (Auto) 1.4 [place] # (Auto) 0.9 H Eos # (Auto) 0.0 Baso # (Auto) 0.0 Neutrophils % (Manual) Band Neutrophils % Lymphocytes % (Manual) Monocytes % (Manual) Smudge Cells Platelet Estimate Hypochromasia (manual) Microcytosis (manual) PT INR APTT Sodium 137 Potassium 4.6 Chloride 100 Carbon Dioxide 28 Anion Gap 14 BUN 24 H Creatinine 0.9 Est GFR ( Amer) > 60 Est GFR (Non-Af Amer) > 60 Random Glucose 98 Calcium 9.1 Total Bilirubin AST ALT Alkaline Phosphatase Total Protein Albumin Globulin Albumin/Globulin Ratio TSH 3rd Generation Beta HCG, Quant Urine Color Straw Urine Clarity Clear Urine pH 7.0 Ur Specific [place] 1.017 Urine Protein Negative Urine Glucose (UA) Neg Urine Ketones Negative Urine Blood Negative Urine Nitrate Negative Urine Bilirubin Negative Urine Urobilinogen 0.2-1.0 Ur Leukocyte Esterase Trace Urine RBC (Auto) < 1 Urine Microscopic WBC 3 Ur Squamous Epith Cells 2 09/03/18 09/03/18 07:08 08:36 WBC RBC Hgb Hct MCV MCH MCHC RDW Plt Count MPV Neut % (Auto) Lymph % (Auto) [place] % (Auto) Eos % (Auto) Baso % (Auto) Neut # (Auto) Lymph # (Auto) [place] # (Auto) Eos # (Auto) Baso # (Auto) Neutrophils % (Manual) Band Neutrophils % Lymphocytes % (Manual) Monocytes % (Manual) Smudge Cells Platelet Estimate Hypochromasia (manual) Microcytosis (manual) PT INR APTT Sodium Potassium Chloride Carbon Dioxide Anion Gap BUN Creatinine Est GFR ( Amer) Est GFR (Non-Af Amer) Random Glucose Calcium Total Bilirubin AST ALT Alkaline Phosphatase Total Protein Albumin Globulin Albumin/Globulin Ratio TSH 3rd Generation 0.48 Beta HCG, Quant < 2.39 Urine Color Urine Clarity Urine pH Ur Specific [place] Urine Protein Urine Glucose (UA) Urine Ketones Urine Blood Urine Nitrate Urine Bilirubin Urine Urobilinogen Ur Leukocyte Esterase Urine RBC (Auto) Urine Microscopic WBC Ur Squamous Epith Cells - Imaging and Cardiology CT scan - chest Status: Image reviewed by me, Report reviewed by me Assessment & Plan - Assessment and Plan (Free Text) Assessment: 57F with PMH of hyperthyroidism, HLD, and invasive ductal carcinoma right breast 5 years s/p right mastectomy and axillary dissection with right arm/chest pain likely d/t lymphadenopathy, BL pleural masses concerning for metastatic breast cancer, and left thryoid nodule Plan: PRN pain medication Elevate right arm Recommend IR for pleural mass/lymph node biopsy F/U oncology recs May consider superficial lymph node biopsy Discussed with Dr. Chong, further recs per him Korin Andersen, PGY2 <Monroe Tobias - Last Filed: 09/04/18 11:00> Meds - Medications Medications: Current Medications Gabapentin (Neurontin) 100 mg PO TID [facility] Last Admin: 09/04/18 08:41 Dose: Not Given Lactated Ringer's (Lactated Ringer's) 1,000 mls @ 100 mls/hr IV .Q10H [facility] Last Admin: 09/04/18 08:42 Dose: 100 mls/hr Methimazole (Tapazole) 2.5 mg PO DAILY [facility] Last Admin: 09/04/18 08:41 Dose: Not Given Morphine Sulfate (Morphine) 1 mg IVP Q4 PRN PRN Reason: Pain, Mild (1-3) Morphine Sulfate (Morphine) 2 mg IVP Q4 PRN PRN Reason: Pain, moderate (4-7) Last Admin: 09/03/18 04:23 Dose: 2 mg Morphine Sulfate (Morphine) 4 mg IVP Q4 PRN PRN Reason: Pain, severe (8-10) Last Admin: 09/04/18 00:36 Dose: 4 mg Ondansetron HCl (Zofran Inj) 4 mg IVP Q6 PRN PRN Reason: Nausea/Vomiting Oxycodone HCl (Oxycontin Extended Release Tab) 20 mg PO Q12 [facility] Last Admin: 09/04/18 08:41 Dose: Not Given Results - Vital Signs Recent Vital Signs: Last Vital Signs Temp 97.8 F 09/04/18 07:58 Pulse 63 09/04/18 07:58 Resp 20 09/04/18 07:58 BP 121/75 09/04/18 07:58 Pulse Ox 94 L 09/04/18 07:58 - Labs Result Diagrams: 09/04/18 06:20 09/04/18 06:20 Labs: Laboratory Results - last 24 hr 09/04/18 09/04/18 06:20 06:20 WBC 8.9 RBC 4.11 Hgb 11.3 L Hct 35.3 MCV 85.7 MCH 27.5 MCHC 32.1 L RDW 14.0 Plt Count 281 MPV 8.1 Neut % (Auto) 50.0 Lymph % (Auto) 40.3 H [place] % (Auto) 9.3 Eos % (Auto) 0.2 Baso % (Auto) 0.2 Neut # (Auto) 4.4 Lymph # (Auto) 3.6 [place] # (Auto) 0.8 Eos # (Auto) 0.0 Baso # (Auto) 0.0 Sodium 136 Potassium 4.0 Chloride 100 Carbon Dioxide 29 Anion Gap 11 BUN 32 H Creatinine 1.1 Est GFR ( Amer) > 60 Est GFR (Non-Af Amer) 51 Random Glucose 85 Calcium 8.7 Assessment & Plan - Assessment and Plan (Free Text) Plan: agree with resident 57yo F hx of breast cancer s/p right mastectomy with axillary lymph node dissection subsequently treated with chemotherapy. Pt presents with worsening right side arm pain along with chest and back pain. Pt reports right arm weakness and difficulty with movement. Pt denies any recent trauma. As per pt she follows up with her oncologist regularly. Pt without any other acute complaints. Gen: awake, alert, NAD breast: s/p right mastectomy, well healed scar, no palpable masses, right axilla tender to palpation, no gross palpable masses left breast no masses, no nipple retraction or drainage, no left axillary masses. 57yo F hx of breast cancer s/p mastectomy, right axillary dissection and chemotherapy presents with worsening right arm, chest and back pain -CT reviewed- pulmonary nodules concern for metastatic disease, r axillary lymph node -recommend pain control - recommend IR - biopsy of pulmonary nodule and axillary LN -pain control -will continue to follow
--- NOTE | 2018-09-04 00:04 | CP.PCM.CON ---
History of Present Illness - History of Present Illness History of Present Illness: Pt seen, chart reviewed. Will need ir guided bx of chest wall, lung nodules. Past Patient History - Past Medical History & Family History Past Medical History?: Yes Past Family History: Reviewed and not pertinent - Past Social History Smoking Status: Former Smoker Alcohol: None Drugs: Denies Home Situation {Lives}: With Family - CARDIAC Hx Cardiac Disorders: Yes Hx Hypercholesterolemia: Yes - PULMONARY Hx Respiratory Disorders: No - NEUROLOGICAL Hx Neurological Disorder: No - HEENT Hx HEENT Problems: No - RENAL Hx Chronic Kidney Disease: No - ENDOCRINE/METABOLIC Hx Hyperthyroidism: Yes - HEMATOLOGICAL/ONCOLOGICAL Hx Cancer: Yes (breast) - INTEGUMENTARY Hx Dermatological Problems: No - MUSCULOSKELETAL/RHEUMATOLOGICAL Hx Musculoskeletal Disorders: No - GASTROINTESTINAL Hx Gastrointestinal Disorders: No - GENITOURINARY/GYNECOLOGICAL Hx Genitourinary Disorders: No - PSYCHIATRIC Hx Psychophysiologic Disorder: No Hx Substance Use: No - SURGICAL HISTORY Hx Liver Transplant: No Hx Mastectomy: Yes (right total mastectomy with axillary dissection) Hx Tubal Ligation: Yes Hx Vascular Access Device: Yes (chemoport) - ANESTHESIA Hx Anesthesia: Yes Hx Anesthesia Reactions: No Meds Allergies/Adverse Reactions: Allergies Allergy/AdvReac Type Severity Reaction Status Date / Time No Known Allergies Allergy Verified 09/02/18 21:18 - Medications Medications: Current Medications Gabapentin (Neurontin) 100 mg PO TID [facility] Last Admin: 09/03/18 20:14 Dose: 100 mg Sodium Chloride (Sodium Chloride 0.9%) 1,000 mls @ 100 mls/hr IV .Q10H [facility] Stop: 09/04/18 00:32 Last Admin: 09/03/18 20:14 Dose: 100 mls/hr Methimazole (Tapazole) 2.5 mg PO DAILY [facility] Last Admin: 09/03/18 08:20 Dose: 2.5 mg Morphine Sulfate (Morphine) 1 mg IVP Q4 PRN PRN Reason: Pain, Mild (1-3) Morphine Sulfate (Morphine) 2 mg IVP Q4 PRN PRN Reason: Pain, moderate (4-7) Last Admin: 09/03/18 04:23 Dose: 2 mg Morphine Sulfate (Morphine) 4 mg IVP Q4 PRN PRN Reason: Pain, severe (8-10) Last Admin: 09/03/18 16:53 Dose: 4 mg Ondansetron HCl (Zofran Inj) 4 mg IVP Q6 PRN PRN Reason: Nausea/Vomiting Oxycodone HCl (Oxycontin Extended Release Tab) 20 mg PO Q12 [facility] Last Admin: 09/03/18 21:10 Dose: 20 mg Results - Vital Signs Recent Vital Signs: Last Vital Signs Temp 98 F 09/03/18 16:12 Pulse 71 09/03/18 16:12 Resp 18 09/03/18 16:12 BP 110/69 09/03/18 16:12 Pulse Ox 98 09/03/18 20:27 - Labs Result Diagrams: 09/03/18 06:05 09/03/18 06:05 Labs: Laboratory Results - last 24 hr 09/02/18 09/03/18 09/03/18 23:43 06:05 06:05 WBC 12.4 H RBC 4.45 Hgb 12.2 Hct 38.1 MCV 85.5 MCH 27.5 MCHC 32.2 L RDW 14.1 Plt Count 320 MPV 8.1 Neut % (Auto) 81.4 H Lymph % (Auto) 11.6 L Rankin % (Auto) 6.9 Eos % (Auto) 0.0 Baso % (Auto) 0.1 Neut # (Auto) 10.1 H Lymph # (Auto) 1.4 Rankin # (Auto) 0.9 H Eos # (Auto) 0.0 Baso # (Auto) 0.0 Sodium 137 Potassium 4.6 Chloride 100 Carbon Dioxide 28 Anion Gap 14 BUN 24 H Creatinine 0.9 Est GFR ( Amer) > 60 Est GFR (Non-Af Amer) > 60 Random Glucose 98 Calcium 9.1 TSH 3rd Generation Beta HCG, Quant Urine Color Straw Urine Clarity Clear Urine pH 7.0 Ur Specific [place] 1.017 Urine Protein Negative Urine Glucose (UA) Neg Urine Ketones Negative Urine Blood Negative Urine Nitrate Negative Urine Bilirubin Negative Urine Urobilinogen 0.2-1.0 Ur Leukocyte Esterase Trace Urine RBC (Auto) < 1 Urine Microscopic WBC 3 Ur Squamous Epith Cells 2 09/03/18 09/03/18 07:08 08:36 WBC RBC Hgb Hct MCV MCH MCHC RDW Plt Count MPV Neut % (Auto) Lymph % (Auto) Rankin % (Auto) Eos % (Auto) Baso % (Auto) Neut # (Auto) Lymph # (Auto) Rankin # (Auto) Eos # (Auto) Baso # (Auto) Sodium Potassium Chloride Carbon Dioxide Anion Gap BUN Creatinine Est GFR ( Amer) Est GFR (Non-Af Amer) Random Glucose Calcium TSH 3rd Generation 0.48 Beta HCG, Quant < 2.39 Urine Color Urine Clarity Urine pH Ur Specific [place] Urine Protein Urine Glucose (UA) Urine Ketones Urine Blood Urine Nitrate Urine Bilirubin Urine Urobilinogen Ur Leukocyte Esterase Urine RBC (Auto) Urine Microscopic WBC Ur Squamous Epith Cells
[2018-09-04] MEDS: Morphine 4 MG/ML VIAL IVP PRN ×3 (00:36→18:37)
[2018-09-04] MEDS ORDERED: Morphine 4 MG/ML VIAL IVP ONE (02:58)
[2018-09-04 06:34] LABS: BASO % 0.2 % (0.0-2.0); EOS % 0.2 % (0.0-4.0); HEMOGLOBIN 11.3 g/dL (12.0-16.0); LYMPH # 3.6 K/uL (1.0-4.3); LYMPH % 40.3 % (20.0-40.0); MEAN CELL VOLUME 85.7 fl (81.0-99.0); MEAN CORPUSCULAR HEMOGLOBIN 27.5 pg (27.0-31.0); MEAN CORPUSCULAR HGB CONC 32.1 g/dL (33.0-37.0); MEAN PLATELET VOLUME 8.1 fl (7.2-11.7); MONO # 0.8 K/uL (0.0-0.8); MONO % 9.3 % (0.0-10.0); NEUT # 4.4 K/uL (1.8-7.0); NRBC % 0.2 % (0.0-0.0); RBC 4.11 Mil/uL (3.80-5.20); WHITE BLOOD COUNT 8.9 K/uL (4.8-10.8)
[2018-09-04 06:59] LABS: BLOOD UREA NITROGEN 32 mg/dl (7-17); CALCIUM 8.7 mg/dL (8.4-10.2); GFR NON-AFRICAN AMERICAN 51
--- NOTE | 2018-09-04 08:24 | CP.PCM.PN ---
<Shanique Mcguire - Last Filed: 09/04/18 10:22> Subjective - Date & Time of Evaluation Date of Evaluation: 09/04/18 Time of Evaluation: 09:01 - Subjective Subjective: Patient was seen and examined this morning, laying in bed. There were no acute events overnight. Right-sided chest, arm, and back pain is reported as 8/10. Patient is NPO for possible node biopsy. Objective - Vital Signs/Intake and Output Vital Signs (last 24 hours): Temp Pulse Resp BP Pulse Ox 97.8 F 63 20 121/75 94 L 09/04/18 07:58 09/04/18 07:58 09/04/18 07:58 09/04/18 07:58 09/04/18 07:58 - Medications Medications: Current Medications Gabapentin (Neurontin) 100 mg PO TID [facility] Last Admin: 09/03/18 20:14 Dose: 100 mg Lactated Ringer's (Lactated Ringer's) 1,000 mls @ 100 mls/hr IV .Q10H [facility] Methimazole (Tapazole) 2.5 mg PO DAILY [facility] Last Admin: 09/03/18 08:20 Dose: 2.5 mg Morphine Sulfate (Morphine) 1 mg IVP Q4 PRN PRN Reason: Pain, Mild (1-3) Morphine Sulfate (Morphine) 2 mg IVP Q4 PRN PRN Reason: Pain, moderate (4-7) Last Admin: 09/03/18 04:23 Dose: 2 mg Morphine Sulfate (Morphine) 4 mg IVP Q4 PRN PRN Reason: Pain, severe (8-10) Last Admin: 09/04/18 00:36 Dose: 4 mg Ondansetron HCl (Zofran Inj) 4 mg IVP Q6 PRN PRN Reason: Nausea/Vomiting Oxycodone HCl (Oxycontin Extended Release Tab) 20 mg PO Q12 [facility] Last Admin: 09/03/18 21:10 Dose: 20 mg - Labs Labs: 09/04/18 06:20 09/04/18 06:20 PT 12.7 Seconds (9.8-13.1) 09/02/18 22:08 INR 1.1 09/02/18 22:08 APTT 27.5 Seconds (25.6-37.1) 02/12/19 22:08 - Constitutional Appears: Non-toxic - Head Exam Head Exam: ATRAUMATIC - Eye Exam Eye Exam: EOMI - ENT Exam ENT Exam: Mucous Membranes Moist - Respiratory Exam Respiratory Exam: absent: Rhonchi, Wheezes, Respiratory Distress Additional comments: Breast- right breast masectomy noted; left breast without any change in skin col or, warmth or erythema - Cardiovascular Exam Cardiovascular Exam: REGULAR RHYTHM, +S1, +S2 - GI/Abdominal Exam GI & Abdominal Exam: Soft, Normal Bowel Sounds. absent: Guarding, Rigid, Tenderness - Extremities Exam Extremities Exam: absent: Calf Tenderness Additional comments: tenderness to palpation proximally & distally with limited range of motion due to pain; sensation intact to b/l upper extremities - Neurological Exam Neurological Exam: Alert, Oriented x3 - Psychiatric Exam Psychiatric exam: Normal Mood - Skin Skin Exam: Intact Assessment and Plan - Assessment and Plan (Free Text) Assessment: 7 y/o F with hx of hyperthyroidism, dyslipidemia, and breast cancer dx in 2013 s/p masectomy & chemotherapy admitted for intractable pain of right chest, arm & back with CT reporting probable pulmonary metastasis, nonspecific scattered b/l ground-glass pulmonary opacities, and multiple enlarged nodes. 1. Lung nodules with lymphadenopathy - Hx of breast cancer, chemotherapy, and right sided mastectomy -Chest CT reported probably pulmonary metastasis; nonspecific scattered b/l ground-glass pulmonary opacities. No tara consolidation; mediastinal & b/l hilar lymphadenopathy; enlarged subclavian nodes, right axillary lymphadenopathy; 2.8cm mass in left lobe of thyroid - Oncology consulted - Dr. Hugh Goodman;recommendations appreciated. -IR consulted: Dr. Metz - C/w pain control w/ morphine scale, starting with 1 mg q4hrs prn for mild, 2 mg q4hrs prn for mod, 4 mg q4hrs prn for severe pain; reassess pain scale as needed - NPO for possible biopsy 2. Nausea - C/w Zofran 4 mg q6hrs prn 3. Leukocytosis (resolved at this time) - Initial WBC 12.6, today 8.9 - Monitor with CBC 4. Elevated BUN - 28 intially, 32 today; creatinine 1.1 -C/w NS @ 100 ml/hr 5. Hyperthyroidism - TSH 0.48 -C/w tapazole 2.5mg QD 6. Diet - NPO for possible biopsy in am; otherwise heart healthy diet 7. DVT prophylaxis - SCD for now 8. Code Status - NOK/surrogate decision maker: sonStephen; [phone] - Code Status: Full code <Cherise Lorenzo - Last Filed: 09/04/18 16:57> Objective - Vital Signs/Intake and Output Vital Signs (last 24 hours): Temp Pulse Resp BP Pulse Ox 98.1 F 66 20 94/59 L 94 L 09/04/18 16:00 09/04/18 16:00 09/04/18 16:00 09/04/18 16:00 09/04/18 16:00 - Medications Medications: Current Medications Docusate Sodium (Colace) 100 mg PO BID [facility] Last Admin: 09/04/18 16:20 Dose: 100 mg Gabapentin (Neurontin) 100 mg PO TID [facility] Last Admin: 09/04/18 16:17 Dose: 100 mg Lactated Ringer's (Lactated Ringer's) 1,000 mls @ 100 mls/hr IV .Q10H [facility] Last Admin: 09/04/18 08:42 Dose: 100 mls/hr Methimazole (Tapazole) 2.5 mg PO DAILY [facility] Last Admin: 09/04/18 12:01 Dose: 2.5 mg Morphine Sulfate (Morphine) 1 mg IVP Q4 PRN PRN Reason: Pain, Mild (1-3) Morphine Sulfate (Morphine) 2 mg IVP Q4 PRN PRN Reason: Pain, moderate (4-7) Last Admin: 09/03/18 04:23 Dose: 2 mg Morphine Sulfate (Morphine) 4 mg IVP Q4 PRN PRN Reason: Pain, severe (8-10) Last Admin: 09/04/18 11:45 Dose: 4 mg Ondansetron HCl (Zofran Inj) 4 mg IVP Q6 PRN PRN Reason: Nausea/Vomiting Oxycodone HCl (Oxycontin Extended Release Tab) 20 mg PO Q12 [facility] Last Admin: 09/04/18 12:04 Dose: 20 mg Oxycodone/Acetaminophen (Percocet 5/325 Mg Tab) 2 tab PO Q4 PRN PRN Reason: Pain, moderate (4-7) Stop: 09/07/18 15:30 - Labs Labs: 09/04/18 06:20 09/04/18 06:20 PT 12.7 Seconds (9.8-13.1) 09/02/18 22:08 INR 1.1 09/02/18 22:08 APTT 27.5 Seconds (25.6-37.1) 09/02/18 22:08 Attending/Attestation - Attestation I have personally seen and examined this patient.: Yes I have fully participated in the care of the patient.: Yes I have reviewed all pertinent clinical information, including history, physical exam and plan: Yes Notes (Text): Ct of the Neck and Chest : There is lack of adequate distention of the left vallecula and left piriform sinus. Although this may be artifactual in origin, correlation with direct visual inspection is suggested. No mass identified. No significant cervical lymphadenopathy. 2.8 cm mass in the left lobe of the thyroid with thyroid ultrasound examination. Probable pulmonary metastasis. Nonspecific scattered bilateral ground-glass pulmonary opacities. No tara consolidation. Mediastinal and bilateral hilar lymphadenopathy. Enlarged right subclavian lymph nodes. Right axillary lymphadenopathy. Chest Wall Mass with right sided chest pain Lung Nodules , ? metastasis with mediastinal and Hilar Lymphadenopathy History of Breast Cancer s/p Radical Mastectomy and Chemotherapy Subclavian and Axillary Lymphadenopathy Hyperthyroidism Thyroid Nodule - pt underwent US guided biopsy of chest wall mass by IR - await pathology - Pt has severe chest wall pain - will keep pt for Pain mgt , cont IV Morphine, Oxycodone - Pulmonary consulted - Oncology consulted - discussed case with Dr Adonis Goodman - Doppler US of RUE to r/o DVT
[2018-09-04] MEDS: methIMAzole 5 MG TAB PO SCH ×2 (08:41→12:01)
[2018-09-04] MEDS: oxyCODONE 20 mg ER Tab (oxyCONTIN) PO SCH ×3 (08:41→20:41)
[2018-09-04] MEDS: Lactated Ringer's 1,000 ML IV SCH ×2 (08:42→18:37)
--- NOTE | 2018-09-04 09:38 | CP.PCM.PN ---
Subjective - Date & Time of Evaluation Date of Evaluation: 09/04/18 Time of Evaluation: 09:34 - Subjective Subjective: Patient's condition is more or less same. The pain appears to be a little less today.For possible rbiopsy of the chest wall or the node by IR. This is possibly a a recurrent breast cancer or new lung ancer. Objective - Vital Signs/Intake and Output Vital Signs (last 24 hours): Temp Pulse Resp BP Pulse Ox 97.8 F 63 20 121/75 94 L 09/04/18 07:58 09/04/18 07:58 09/04/18 07:58 09/04/18 07:58 09/04/18 07:58 - Medications Medications: Current Medications Gabapentin (Neurontin) 100 mg PO TID [facility] Last Admin: 09/04/18 08:41 Dose: Not Given Lactated Ringer's (Lactated Ringer's) 1,000 mls @ 100 mls/hr IV .Q10H [facility] Last Admin: 09/04/18 08:42 Dose: 100 mls/hr Methimazole (Tapazole) 2.5 mg PO DAILY [facility] Last Admin: 09/04/18 08:41 Dose: Not Given Morphine Sulfate (Morphine) 1 mg IVP Q4 PRN PRN Reason: Pain, Mild (1-3) Morphine Sulfate (Morphine) 2 mg IVP Q4 PRN PRN Reason: Pain, moderate (4-7) Last Admin: 09/03/18 04:23 Dose: 2 mg Morphine Sulfate (Morphine) 4 mg IVP Q4 PRN PRN Reason: Pain, severe (8-10) Last Admin: 09/04/18 00:36 Dose: 4 mg Ondansetron HCl (Zofran Inj) 4 mg IVP Q6 PRN PRN Reason: Nausea/Vomiting Oxycodone HCl (Oxycontin Extended Release Tab) 20 mg PO Q12 [facility] Last Admin: 09/04/18 08:41 Dose: Not Given - Labs Labs: 09/04/18 06:20 09/04/18 06:20 PT 12.7 Seconds (9.8-13.1) 09/02/18 22:08 INR 1.1 09/02/18 22:08 APTT 27.5 Seconds (25.6-37.1) 09/02/18 22:08
--- NOTE | 2018-09-04 11:04 | CP.PCM.PN ---
Subjective - Date & Time of Evaluation Date of Evaluation: 09/04/18 Time of Evaluation: 11:01 - Subjective Subjective: seen at bedside, no overnight events. Pt continues to report right arm pain along with chest and back pain. Pain is constant relieved with pain meds. No other complaints. gen: awake, alert, NAD no acute respiratory distres abd: soft, NT, ND, ext: no calf tenderness b/l, no edema, decrease range of motion of right arm, generalized tenderness to arm, +tenderness to right axillary no gross masses, difficulty in examination as pt is tender to light palpation groin: no lymphadenopahy 57yo F hx of breast cancer -recommend IR for tissue biopsy pulmonary nodule and axillary lymph node Objective - Vital Signs/Intake and Output Vital Signs (last 24 hours): Temp Pulse Resp BP Pulse Ox 97.8 F 63 20 121/75 94 L 09/04/18 07:58 09/04/18 07:58 09/04/18 07:58 09/04/18 07:58 09/04/18 07:58 - Medications Medications: Current Medications Gabapentin (Neurontin) 100 mg PO TID [facility] Last Admin: 09/04/18 08:41 Dose: Not Given Lactated Ringer's (Lactated Ringer's) 1,000 mls @ 100 mls/hr IV .Q10H [facility] Last Admin: 09/04/18 08:42 Dose: 100 mls/hr Methimazole (Tapazole) 2.5 mg PO DAILY [facility] Last Admin: 09/04/18 08:41 Dose: Not Given Morphine Sulfate (Morphine) 1 mg IVP Q4 PRN PRN Reason: Pain, Mild (1-3) Morphine Sulfate (Morphine) 2 mg IVP Q4 PRN PRN Reason: Pain, moderate (4-7) Last Admin: 09/03/18 04:23 Dose: 2 mg Morphine Sulfate (Morphine) 4 mg IVP Q4 PRN PRN Reason: Pain, severe (8-10) Last Admin: 09/04/18 00:36 Dose: 4 mg Ondansetron HCl (Zofran Inj) 4 mg IVP Q6 PRN PRN Reason: Nausea/Vomiting Oxycodone HCl (Oxycontin Extended Release Tab) 20 mg PO Q12 [facility] Last Admin: 09/04/18 08:41 Dose: Not Given - Labs Labs: 09/04/18 06:20 09/04/18 06:20 PT 12.7 Seconds (9.8-13.1) 09/02/18 22:08 INR 1.1 09/02/18 22:08 APTT 27.5 Seconds (25.6-37.1) 09/02/18 22:08
[2018-09-04] MEDS ORDERED: Lidocaine Hydrochloride 5 ML INJ ONE (11:06)
--- NOTE | 2018-09-04 11:57 | PCM.SURG1 ---
Surgeon's Initial Post Op Note - Surgeon's Notes Surgeon: Atnwon Metz MD Sap Sd Analyst: NONE Type of Anesthesia: Local Pre-Operative Diagnosis: Metastatic breast cancer Operative Findings: US showed irregular chest wall masses Post-Operative Diagnosis: Metastatic breast cancer Operation Performed: US guided biopsy of right chest wall mass. Specimen/Specimens Removed: 20 gauge core x 3 Estimated Blood Loss: EBL {In ML}: 1 Blood Products Given: N/A Drains Used: No Drains Post-Op Condition: Fair Date of Surgery/Procedure: 09/04/18 Time of Surgery/Procedure: 11:55
[2018-09-04] MEDS ORDERED: Oxycodone/Acetaminophen 5/325 mg Tab PO PRN (15:29)
--- NOTE | 2018-09-04 18:54 | US ---
Date of service: 09/04/2018 PROCEDURE: Right Upper Extremity Venous Doppler HISTORY: r/o DVT COMPARISON: None available. TECHNIQUE: Right upper extremity deep veins, including the lower internal jugular, subclavian, axillary and brachial veins, were evaluated flow, compressibility and respiratory phasicity. FINDINGS: Normal flow, compressibility and respiratory phasicity was observed in the right upper extremity deep veins. The superficial basilic and cephalic veins are patent. IMPRESSION: No evidence of deep venous thrombosis.
[2018-09-05] MEDS: Lactated Ringer's 1,000 ML IV SCH ×2 (03:25→13:28)
[2018-09-05] MEDS: Morphine 4 MG/ML VIAL IVP PRN ×2 (05:14→16:04)
[2018-09-05 06:35] LABS: BASO % 0.1 % (0.0-2.0); EOS # 0.1 K/uL (0.0-0.7); EOS % 0.8 % (0.0-4.0); HEMOGLOBIN 11.7 g/dL (12.0-16.0); LYMPH % 37.4 % (20.0-40.0); MEAN CORPUSCULAR HEMOGLOBIN 27.8 pg (27.0-31.0); MEAN CORPUSCULAR HGB CONC 32.3 g/dL (33.0-37.0); MEAN PLATELET VOLUME 8.2 fl (7.2-11.7); MONO # 0.9 K/uL (0.0-0.8); MONO % 8.1 % (0.0-10.0); NEUT # 5.8 K/uL (1.8-7.0); NEUT % 53.6 % (50.0-75.0); NRBC % 0.2 % (0.0-0.0); RBC 4.21 Mil/uL (3.80-5.20); RED CELL DISTRIBUTION WIDTH 14.1 % (11.5-14.5); WHITE BLOOD COUNT 10.7 K/uL (4.8-10.8)
--- NOTE | 2018-09-05 08:21 | CP.PCM.PN ---
Subjective - Date & Time of Evaluation Date of Evaluation: 09/05/18 Time of Evaluation: 08:19 - Subjective Subjective: Surgery Progress note Patient seen and examined at bedside. Patient had a biopsy of lymph nodes yesterday by IR. Patient has moderate pain around the biopsy site. Currently has continued numbness down the RUE. + OOB and tolerating diet. denies fevers, chills, chest pain, shortness of breath. Objective - Vital Signs/Intake and Output Vital Signs (last 24 hours): Temp Pulse Resp BP Pulse Ox 97.6 F 67 20 107/69 96 09/05/18 08:11 09/05/18 08:11 09/05/18 08:11 09/05/18 08:11 09/05/18 08:11 - Medications Medications: Current Medications Docusate Sodium (Colace) 100 mg PO BID [facility] Last Admin: 09/04/18 16:20 Dose: 100 mg Enoxaparin Sodium (Lovenox) 40 mg SC DAILY [facility]; Protocol Gabapentin (Neurontin) 100 mg PO TID [facility] Last Admin: 09/04/18 16:17 Dose: 100 mg Lactated Ringer's (Lactated Ringer's) 1,000 mls @ 100 mls/hr IV .Q10H [facility] Last Admin: 09/05/18 03:25 Dose: Not Given Methimazole (Tapazole) 2.5 mg PO DAILY [facility] Last Admin: 09/04/18 12:01 Dose: 2.5 mg Morphine Sulfate (Morphine) 1 mg IVP Q4 PRN PRN Reason: Pain, Mild (1-3) Morphine Sulfate (Morphine) 2 mg IVP Q4 PRN PRN Reason: Pain, moderate (4-7) Last Admin: 09/05/18 05:14 Dose: 2 mg Morphine Sulfate (Morphine) 4 mg IVP Q4 PRN PRN Reason: Pain, severe (8-10) Last Admin: 09/04/18 18:37 Dose: 4 mg Ondansetron HCl (Zofran Inj) 4 mg IVP Q6 PRN PRN Reason: Nausea/Vomiting Oxycodone HCl (Oxycontin Extended Release Tab) 20 mg PO Q12 [facility] Last Admin: 09/04/18 20:41 Dose: 20 mg Oxycodone/Acetaminophen (Percocet 5/325 Mg Tab) 2 tab PO Q4 PRN PRN Reason: Pain, moderate (4-7) Stop: 09/07/18 15:30 Last Admin: 09/05/18 02:54 Dose: 2 tab - Labs Labs: 09/05/18 06:05 09/05/18 06:05 PT 12.7 Seconds (9.8-13.1) 09/02/18 22:08 INR 1.1 09/02/18 22:08 APTT 27.5 Seconds (25.6-37.1) 09/02/18 22:08 - Constitutional Appears: Non-toxic, No Acute Distress - Head Exam Head Exam: ATRAUMATIC - Eye Exam Eye Exam: EOMI. absent: Scleral icterus - ENT Exam ENT Exam: Mucous Membranes Moist - Respiratory Exam Respiratory Exam: NORMAL BREATHING PATTERN. absent: Accessory Muscle Use, Res piratory Distress - Cardiovascular Exam Cardiovascular Exam: REGULAR RHYTHM. absent: Bradycardia, Tachycardia Additional comments: Right side chest dressing C/D/I - GI/Abdominal Exam GI & Abdominal Exam: Soft. absent: Distended, Firm, Guarding, Rigid, Tenderness - Extremities Exam Extremities Exam: absent: Calf Tenderness - Neurological Exam Neurological Exam: Alert, Awake, Oriented x3 - Psychiatric Exam Psychiatric exam: Normal Affect - Skin Skin Exam: Intact, Warm Assessment and Plan - Assessment and Plan (Free Text) Assessment: 57F pmhx w/ Ductal carcinoma s/p R. Mastectomy; admitted for pain and swelling of RUE- new enlarged lymph nodes found s/p biopsy by IR Plan: - monitor dressing site - supportive care and management - further treatment pending results of biopsy - further recs per surgical attending PGY2
[2018-09-05] MEDS ORDERED: Enoxaparin 40 mg Syringe SC SCH (09:00)
[2018-09-05] MEDS: Nystatin 100,000 Units/ml Oral Susp 5 ml UD PO SCH ×3 (09:09→16:10)
--- NOTE | 2018-09-05 09:20 | CP.PCM.PN ---
Subjective - Date & Time of Evaluation Date of Evaluation: 09/05/18 Time of Evaluation: 09:18 - Subjective Subjective: Patient had a biopsy of te chest wall done yesterday. No side effects from the same. She still has pain,but is better than when she came in. The pathology report should be ready today.If not she can be sent home with MS wolf . Will follow. Objective - Vital Signs/Intake and Output Vital Signs (last 24 hours): Temp Pulse Resp BP Pulse Ox 97.6 F 67 20 107/69 96 09/05/18 08:11 09/05/18 08:11 09/05/18 08:11 09/05/18 08:11 09/05/18 08:11 - Medications Medications: Current Medications Docusate Sodium (Colace) 100 mg PO BID [facility] Last Admin: 09/04/18 16:20 Dose: 100 mg Enoxaparin Sodium (Lovenox) 40 mg SC DAILY [facility]; Protocol Gabapentin (Neurontin) 100 mg PO TID [facility] Last Admin: 09/04/18 16:17 Dose: 100 mg Lactated Ringer's (Lactated Ringer's) 1,000 mls @ 100 mls/hr IV .Q10H [facility] Last Admin: 09/05/18 03:25 Dose: Not Given Methimazole (Tapazole) 2.5 mg PO DAILY [facility] Last Admin: 09/04/18 12:01 Dose: 2.5 mg Morphine Sulfate (Morphine) 1 mg IVP Q4 PRN PRN Reason: Pain, Mild (1-3) Morphine Sulfate (Morphine) 2 mg IVP Q4 PRN PRN Reason: Pain, moderate (4-7) Last Admin: 09/05/18 05:14 Dose: 2 mg Morphine Sulfate (Morphine) 4 mg IVP Q4 PRN PRN Reason: Pain, severe (8-10) Last Admin: 09/04/18 18:37 Dose: 4 mg Nystatin (Nystatin Oral Susp) 5 ml PO QID [facility] Ondansetron HCl (Zofran Inj) 4 mg IVP Q6 PRN PRN Reason: Nausea/Vomiting Oxycodone HCl (Oxycontin Extended Release Tab) 20 mg PO Q12 [facility] Last Admin: 09/04/18 20:41 Dose: 20 mg Oxycodone/Acetaminophen (Percocet 5/325 Mg Tab) 2 tab PO Q4 PRN PRN Reason: Pain, moderate (4-7) Stop: 09/07/18 15:30 Last Admin: 09/05/18 02:54 Dose: 2 tab - Labs Labs: 09/05/18 06:05 09/05/18 06:05 PT 12.7 Seconds (9.8-13.1) 09/02/18 22:08 INR 1.1 09/02/18 22:08 APTT 27.5 Seconds (25.6-37.1) 09/02/18 22:08
[2018-09-05] MEDS: methIMAzole 5 MG TAB PO SCH (10:09)
[2018-09-05] MEDS: oxyCODONE 20 mg ER Tab (oxyCONTIN) PO SCH (11:14)
--- NOTE | 2018-09-05 13:56 | CP.PCM.DIS ---
<Shanique Mcguire - Last Filed: 09/05/18 14:15> Provider - Provider Date of Admission: 09/02/18 23:07 Attending physician: Gilbert Chapman Consults: 09/02/18 23:02 Hematology Oncology Consult Stat Comment: Consulting Provider: Randi Gonzalez Consulting Physician: Randi Gonzalez Reason for Consult: right chest wall pain 09/03/18 07:45 Palliative Care Consult Routine Comment: Consulting Provider: Physician Instructions: Palliative care and Pain management Reason For Exam: Intractible Right chest wall pain 09/03/18 10:57 Pulmonology Consult Routine Comment: Consulting Provider: Galen Gloria Consulting Physician: Galen Gloria Reason for Consult: hx of rt breast cancer with multiple nodules on CT 09/03/18 16:46 Physician Consult Routine Comment: Consulting Provider: Thomas Chong Consulting Physician: Thomas Chong Reason for Consult: for poss excisional Lymph node biopsy 09/04/18 07:59 Physician Consult Routine Comment: Consulting Provider: Antwon Metz Consulting Physician: Antwon Metz Reason for Consult: lymph node biopsy Time Spent in preparation of Discharge (in minutes): 60 Hospital Course - Lab Results Lab Results: Most Recent Lab Values WBC 10.7 K/uL (4.8-10.8) 09/05/18 06:05 RBC 4.21 Mil/uL (3.80-5.20) 09/05/18 06:05 Hgb 11.7 g/dL (12.0-16.0) L 09/05/18 06:05 Hct 36.1 % (34.0-47.0) 09/05/18 06:05 MCV 86.0 fl (81.0-99.0) 09/05/18 06:05 MCH 27.8 pg (27.0-31.0) 09/05/18 06:05 MCHC 32.3 g/dL (33.0-37.0) L 09/05/18 06:05 RDW 14.1 % (11.5-14.5) 09/05/18 06:05 Plt Count 270 K/uL (130-400) 09/05/18 06:05 MPV 8.2 fl (7.2-11.7) 09/05/18 06:05 Neut % (Auto) 53.6 % (50.0-75.0) 09/05/18 06:05 Lymph % (Auto) 37.4 % (20.0-40.0) 09/05/18 06:05 [place] % (Auto) 8.1 % (0.0-10.0) 09/05/18 06:05 Eos % (Auto) 0.8 % (0.0-4.0) 09/05/18 06:05 Baso % (Auto) 0.1 % (0.0-2.0) 09/05/18 06:05 Neut # (Auto) 5.8 K/uL (1.8-7.0) 09/05/18 06:05 Lymph # (Auto) 4.0 K/uL (1.0-4.3) 09/05/18 06:05 [place] # (Auto) 0.9 K/uL (0.0-0.8) H 09/05/18 06:05 Eos # (Auto) 0.1 K/uL (0.0-0.7) 09/05/18 06:05 Baso # (Auto) 0.0 K/uL (0.0-0.2) 09/05/18 06:05 Neutrophils % (Manual) 82 % (42-75) H 09/02/18 22:08 Band Neutrophils % 2 % (0-2) 09/02/18 22:08 Lymphocytes % (Manual) 10 % (20-50) L 09/02/18 22:08 Monocytes % (Manual) 6 % (0-10) 09/02/18 22:08 Smudge Cells Present 09/02/18 22:08 Platelet Estimate Normal (NORMAL) 09/02/18 22:08 Hypochromasia (manual) Slight 09/02/18 22:08 Microcytosis (manual) Slight 09/02/18 22:08 PT 12.7 Seconds (9.8-13.1) 09/02/18 22:08 INR 1.1 09/02/18 22:08 APTT 27.5 Seconds (25.6-37.1) 09/02/18 22:08 Sodium 137 mmol/l (132-148) 09/05/18 06:05 Potassium 4.1 MMOL/L (3.6-5.0) 09/05/18 06:05 Chloride 98 mmol/L (98-107) 09/05/18 06:05 Carbon Dioxide 29 mmol/L (22-30) 09/05/18 06:05 Anion Gap 14 (10-20) 09/05/18 06:05 BUN 28 mg/dl (7-17) H 09/05/18 06:05 Creatinine 1.2 mg/dl (0.7-1.2) 09/05/18 06:05 Est GFR ( Amer) 56 09/05/18 06:05 Est GFR (Non-Af Amer) 46 09/05/18 06:05 Random Glucose 95 mg/dL (65-105) 09/05/18 06:05 Calcium 9.0 mg/dL (8.4-10.2) 09/05/18 06:05 Total Bilirubin 0.5 mg/dl (0.2-1.3) 09/02/18 22:08 AST 32 U/L (14-36) 09/02/18 22:08 ALT 20 U/L (9-52) 09/02/18 22:08 Alkaline Phosphatase 109 U/L (38-126) 09/02/18 22:08 Total Protein 7.9 G/DL (6.3-8.2) 09/02/18 22:08 Albumin 4.2 g/dL (3.5-5.0) 09/02/18 22:08 Globulin 3.7 gm/dL (2.2-3.9) 09/02/18 22:08 Albumin/Globulin Ratio 1.2 (1.0-2.1) 09/02/18 22:08 Carcinoembryonic Ag 3.0 ng/mL (0-3.0) 09/05/18 09:40 TSH 3rd Generation 0.48 mIU/ML (0.46-4.68) 09/03/18 07:08 Beta HCG, Quant < 2.39 mIU/mL 09/03/18 08:36 Urine Color Straw (YELLOW) 09/02/18 23:43 Urine Clarity Clear (Clear) 09/02/18 23:43 Urine pH 7.0 (5.0-8.0) 09/02/18 23:43 Ur Specific [place] 1.017 (1.003-1.030) 09/02/18 23:43 Urine Protein Negative mg/dL (NEGATIVE) 09/02/18 23:43 Urine Glucose (UA) Neg mg/dL (NEGATIVE) 09/02/18 23:43 Urine Ketones Negative mg/dL (NEGATIVE) 09/02/18:43 Urine Blood Negative (NEGATIVE) 09/02/18 23:43 Urine Nitrate Negative (NEGATIVE) 09/02/18 23:43 Urine Bilirubin Negative (NEGATIVE) 09/02/18:43 Urine Urobilinogen 0.2-1.0 mg/dL (0.2-1.0) 09/02/18 23:43 Ur Leukocyte Esterase Trace Rosario/uL (Negative) 09/02/18:43 Urine RBC (Auto) < 1 /hpf (0-3) 09/02/18:43 Urine Microscopic WBC 3 /hpf (0-5) 09/02/18:43 Ur Squamous Epith Cells 2 /hpf (0-5) 09/02/18:43 - Hospital Course Hospital Course: 57 y/o F with hx of hyperthyroidism, dyslipidemia, and breast cancer dx in 2012 s/p masectomy & chemotherapy admitted for intractable pain of right chest, arm & back with CT reporting probable pulmonary metastasis, nonspecific scattered b/l ground-glass pulmonary opacities, and multiple enlarged node. During hospitalization, patient was treated for morphine and oxycodone for intractable pain. Oncology and Surgery were consulted. Recommendations were appreciated. IR performed US guided biopsy of right chest wall mass. Preliminary report showed poorly differentiated carcinoma. Sample will be sent for further testing, and patient will follow up with Dr. Adonis Gonzalez as outpatient. 1. Lung nodules with lymphadenopathy - Hx of breast cancer s/p chemotherapy, and right sided mastectomy -Chest CT reported probably pulmonary metastasis; nonspecific scattered b/l ground-glass pulmonary opacities. No tara consolidation; mediastinal & b/l hilar lymphadenopathy; enlarged subclavian nodes, right axillary lymphadenopathy; 2.8cm mass in left lobe of thyroid -Preliminary path report showed poorly differentiated carcinoma -Awaiting official report 2. right chest, arm & back pain (likely due to lung findings- see above) -dexamethasone 4mg PO TID -morphine sulfate 30mg PO Q8 -oxycodone HCL/Acetaminophen 1 tab PO Q6 PRN -gabapentin 100mg PO BID 3. Nausea (resolved) 4. Leukocytosis (resolved at this time) 5. Elevated BUN - 28, creatinine 1.2 6. Hyperthyroidism (chronic, stable) - TSH 0.48 -C/w tapazole 2.5mg QD Discharge Exam - Head Exam Head Exam: ATRAUMATIC - Eye Exam Eye Exam: EOMI - ENT Exam ENT Exam: Mucous Membranes Moist - Neck Exam Additional comments: supraclavicular lymphadenopathy - Respiratory Exam Respiratory Exam: NORMAL BREATHING PATTERN. absent: Wheezes, Respiratory Distress - Cardiovascular Exam Cardiovascular Exam: REGULAR RHYTHM, +S1, +S2 - GI/Abdominal Exam GI & Abdominal Exam: Normal Bowel Sounds, Soft. absent: Guarding, Rebound, Rigid, Tenderness - Extremities Exam Extremities exam: normal inspection Additional comments: right upper extremity slightly swollen compared to left arm with some tenderness to right arm; sensation in tact to light touch b/l; ROM limited due to pain - Neurological Exam Neurological exam: Alert, Oriented x3 - Psychiatric Exam Psychiatric exam: Normal Affect, Normal Mood Discharge Plan - Discharge Medications Prescriptions: Docusate [Colace] 100 mg PO BID #60 cap Gabapentin [Neurontin] 100 mg PO TID #90 cap Morphine Sulfate [Ms Contin] 30 mg PO Q8 #60 tablet.er Oxycodone HCl/Acetaminophen [Endocet 10-325 mg Tablet] 1 tab PO Q6 PRN #40 tablet PRN Reason: Pain, Moderate (4-7) - Follow Up Plan Condition: FAIR Instructions: Chest Pain (DC), Breast Cancer (DC) Additional Instructions: follow up with primary MD and dr gonzalez 1 week KHOA SUTTON, thank you for letting us take care of you today. Your provider was Andrew Juarez MD and you were treated for RT ARM PAIN, BACK PAIN. The emergency medical care you received today was directed at your acute symptoms. I f you were prescribed any medication, please fill it and take as directed. It may take several days for your symptoms to resolve. Return to the Emergency Department if your symptoms worsen, do not improve, or if you have any other problems. Please contact your doctor or call one of the physicians/clinics you have been referred to that are listed on the Patient Visit Information form that is inclu ded in your discharge packet. Bring any paperwork you were given at discharge with you along with any medications you are taking to your follow up visit. Our treatment cannot replace ongoing medical care by a primary care provider outside of the emergency department. Thank you for allowing the [facility] team to be part of your care today. If you had an X-Ray or CT scan: A Radiologist will review the ED reading if any change in treatment is needed we will contact you. If you had a blood, urine, or wound culture: It will take several days for the results, if any change in treatment is needed we will contact you. If you had an STI test: It will take 48 hours for the results. Please call after 1 week if you have not heard back. Referrals: Randi Gonzalez MD [Staff Provider] - Galen Gloria MD [Staff Provider] - <Cherise Lorenzo - Last Filed: 09/05/18 15:49> Provider - Provider Date of Admission: 09/02/18 23:07 Attending physician: Gilbert Chapman Consults: 09/02/18 23:02 Hematology Oncology Consult Stat Comment: Consulting Provider: Randi Gonzalez Consulting Physician: Randi Gonzalez Reason for Consult: right chest wall pain 09/03/18 07:45 Palliative Care Consult Routine Comment: Consulting Provider: Physician Instructions: Palliative care and Pain management Reason For Exam: Intractible Right chest wall pain 09/03/18 10:57 Pulmonology Consult Routine Comment: Consulting Provider: Galen Gloria Consulting Physician: Galen Gloria Reason for Consult: hx of rt breast cancer with multiple nodules on CT 09/03/18 16:46 Physician Consult Routine Comment: Consulting Provider: Thomas Chong Consulting Physician: Thomas Chong Reason for Consult: for poss excisional Lymph node biopsy 09/04/18 07:59 Physician Consult Routine Comment: Consulting Provider: Antwon Metz Consulting Physician: Antwon Metz Reason for Consult: lymph node biopsy Hospital Course - Lab Results Lab Results: Most Recent Lab Values WBC 10.7 K/uL (4.8-10.8) 09/05/18 06:05 RBC 4.21 Mil/uL (3.80-5.20) 09/05/18 06:05 Hgb 11.7 g/dL (12.0-16.0) L 09/05/18 06:05 Hct 36.1 % (34.0-47.0) 09/05/18 06:05 MCV 86.0 fl (81.0-99.0) 09/05/18 06:05 MCH 27.8 pg (27.0-31.0) 09/05/18 06:05 MCHC 32.3 g/dL (33.0-37.0) L 09/05/18 06:05 RDW 14.1 % (11.5-14.5) 09/05/18 06:05 Plt Count 270 K/uL (130-400) 09/05/18 06:05 MPV 8.2 fl (7.2-11.7) 09/05/18 06:05 Neut % (Auto) 53.6 % (50.0-75.0) 09/05/18 06:05 Lymph % (Auto) 37.4 % (20.0-40.0) 09/05/18 06:05 [place] % (Auto) 8.1 % (0.0-10.0) 09/05/18 06:05 Eos % (Auto) 0.8 % (0.0-4.0) 09/05/18 06:05 Baso % (Auto) 0.1 % (0.0-2.0) 09/05/18 06:05 Neut # (Auto) 5.8 K/uL (1.8-7.0) 09/05/18 06:05 Lymph # (Auto) 4.0 K/uL (1.0-4.3) 09/05/18 06:05 [place] # (Auto) 0.9 K/uL (0.0-0.8) H 09/05/18 06:05 Eos # (Auto) 0.1 K/uL (0.0-0.7) 09/05/18 06:05 Baso # (Auto) 0.0 K/uL (0.0-0.2) 09/05/18 06:05 Neutrophils % (Manual) 82 % (42-75) H 09/02/18 22:08 Band Neutrophils % 2 % (0-2) 09/02/18 22:08 Lymphocytes % (Manual) 10 % (20-50) L 09/02/18 22:08 Monocytes % (Manual) 6 % (0-10) 09/02/18 22:08 Smudge Cells Present 09/02/18 22:08 Platelet Estimate Normal (NORMAL) 09/02/18 22:08 Hypochromasia (manual) Slight 09/02/18 22:08 Microcytosis (manual) Slight 09/02/18 22:08 PT 12.7 Seconds (9.8-13.1) 09/02/18 22:08 INR 1.1 09/02/18 22:08 APTT 27.5 Seconds (25.6-37.1) 09/02/18 22:08 Sodium 137 mmol/l (132-148) 09/05/18 06:05 Potassium 4.1 MMOL/L (3.6-5.0) 09/05/18 06:05 Chloride 98 mmol/L (98-107) 09/05/18 06:05 Carbon Dioxide 29 mmol/L (22-30) 09/05/18 06:05 Anion Gap 14 (10-20) 09/05/18 06:05 BUN 28 mg/dl (7-17) H 09/05/18 06:05 Creatinine 1.2 mg/dl (0.7-1.2) 09/05/18 06:05 Est GFR ( Amer) 56 09/05/18 06:05 Est GFR (Non-Af Amer) 46 09/05/18 06:05 Random Glucose 95 mg/dL (65-105) 09/05/18 06:05 Calcium 9.0 mg/dL (8.4-10.2) 09/05/18 06:05 Total Bilirubin 0.5 mg/dl (0.2-1.3) 09/02/18 22:08 AST 32 U/L (14-36) 09/02/18 22:08 ALT 20 U/L (9-52) 09/02/18 22:08 Alkaline Phosphatase 109 U/L (38-126) 09/02/18 22:08 Total Protein 7.9 G/DL (6.3-8.2) 09/02/18 22:08 Albumin 4.2 g/dL (3.5-5.0) 09/02/18 22:08 Globulin 3.7 gm/dL (2.2-3.9) 09/02/18 22:08 Albumin/Globulin Ratio 1.2 (1.0-2.1) 09/02/18 22:08 Carcinoembryonic Ag 3.0 ng/mL (0-3.0) 09/05/18 09:40 TSH 3rd Generation 0.48 mIU/ML (0.46-4.68) 09/03/18 07:08 Beta HCG, Quant < 2.39 mIU/mL 09/03/18 08:36 Urine Color Straw (YELLOW) 09/02/18 23:43 Urine Clarity Clear (Clear) 09/02/18 23:43 Urine pH 7.0 (5.0-8.0) 09/02/18 23:43 Ur Specific [place] 1.017 (1.003-1.030) 09/02/18 23:43 Urine Protein Negative mg/dL (NEGATIVE) 09/02/18 23:43 Urine Glucose (UA) Neg mg/dL (NEGATIVE) 09/02/18 23:43 Urine Ketones Negative mg/dL (NEGATIVE) 09/02/18 23:43 Urine Blood Negative (NEGATIVE) 09/02/18 23:43 Urine Nitrate Negative (NEGATIVE) 09/02/18 23:43 Urine Bilirubin Negative (NEGATIVE) 09/02/18 23:43 Urine Urobilinogen 0.2-1.0 mg/dL (0.2-1.0) 09/02/18 23:43 Ur Leukocyte Esterase Trace Rosario/uL (Negative) 09/02/18 23:43 Urine RBC (Auto) < 1 /hpf (0-3) 09/02/18 23:43 Urine Microscopic WBC 3 /hpf (0-5) 09/02/18 23:43 Ur Squamous Epith Cells 2 /hpf (0-5) 09/02/18 23:43 Attending/Attestation - Attestation I have personally seen and examined this patient.: Yes I have fully participated in the care of the patient.: Yes I have reviewed all pertinent clinical information, including history, physical exam and plan: Yes Notes (Text): 1. Chest Wall Mass with right sided chest pain 2. Lung Nodules , likely metastasis from Breast CA with mediastinal and Hilar Lymphadenopathy 3. History of Breast Cancer s/p Radical Mastectomy and Chemotherapy 4. Subclavian and Axillary Lymphadenopathy 5. Hyperthyroidism w/ Thyroid Nodule - pt underwent US guided biopsy of chest wall mass by IR - Final Pathology still pending - Chest wall pain now controlled - will d/c pt on equivalent PO dose - MS Contin 30 mg q 8 , cont Endocet prn, added Neurontin - cont Colace - Pt to ff up with Dr Adonis Gonzalez next wk for pathology result and further mgt - ff up with PMD for further thyroid work up - cont home med
--- NOTE | 2018-09-05 15:10 | US ---
PROCEDURE: Date of procedure: 09/04/2018 Procedure: Ultrasound-guided biopsy of chest wall lymph node, CPT 66066 Ultrasound guidance for biopsy, [address] HISTORY: Enlarged chest wall mass, breast cancer TECHNIQUE: Following informed consent and procedure time-out, limited ultrasound patient's right chest demonstrates multiple enlarged irregular masses. After the patient chest was prepped and draped in the usual sterile fashion and the skin anesthetized with lidocaine, a 20 gauge core needle was advanced percutaneously into the largest mass. Upon confirmation of needle position, multiple core specimens were obtained and sent for routine pathology. post biopsy ultrasound showed no hematoma IMPRESSION: Ultrasound-guided core biopsy of large right chest wall mass.
[2018-09-05 16:33] VITALS: BP 101/65; PULSE 78; RESP 18; TEMP 98.2; O2SAT 97
[2018-09-08 15:48] LABS: CA 27.29 117 U/mL (<38)
== END 2018-09-05 18:18 | disposition home or self-care (01) ==
LOC: H.ER 21:08 → H.ERHOLD 23:07 → INTOOBSV 23:07 → H.MEDSURG1 09-03 00:27
PROVIDERS: ADMIT Internal Medicine; ATTEND Internal Medicine
DX: C78.01 Secondary malignant neoplasm of right lung (principal); R07.89 Other chest pain; R59.0 Localized enlarged lymph nodes; D72.828 Other elevated white blood cell count; E04.1 Nontoxic single thyroid nodule; E05.90 Thyrotoxicosis, unspecified without thyrotoxic crisis or storm; Z85.3 Personal history of malignant neoplasm of breast; Z92.21 Personal history of antineoplastic chemotherapy; Z90.11 Acquired absence of right breast and nipple; E78.00 Pure hypercholesterolemia, unspecified; E78.5 Hyperlipidemia, unspecified; K59.00 Constipation, unspecified; Z87.891 Personal history of nicotine dependence
CPT/HCPCS: 36415; 38505; 70491; 71260; 80048; 80053; 81003; 82378; 84443; 84702; 85025; 85610; 85730; 86300; 88305; 93005; 93971; 96374; 96375; 96376; 99285; G0378; J1650; J2270; J2405; J7030; J7120; Q9967

== ENCOUNTER 2018-09-18 12:07 | Inpatient (IN) | payer SELFPAY ==
[2018-09-18 12:08] VITALS: BMI 31.6
[2018-09-18] MEDS ORDERED: Morphine 4 MG/ML VIAL IV ONE ×2 (13:10→15:15)
[2018-09-18] MEDS ORDERED: Sodium Chloride 0.9% 1,000 ML IV STA (13:10)
[2018-09-18] MEDS ORDERED: Morphine 4 MG/ML VIAL ONE ×2 (13:19→15:29)
--- NOTE | 2018-09-18 13:26 | ED PDOC ---
HPI: Back Time Seen by Provider: 09/18/18 13:05 Chief Complaint (Nursing): Chest Pain Chief Complaint (Provider): Back pain History Per: Patient History/Exam Limitations: no limitations Onset/Duration Of Symptoms: Days (1) Current Symptoms Are (Timing): Still Present Additional Complaint(s): 57yo female, with history of breast cancer and subsequent right mastectomy, re cent history of mets to the chest wall, comes to ER for evaluation of back pain worsening since yesterday. Patient states she takes PO morphine, but has run out of the medication. She otherwise denies any weakness, numbness, abdominal pain, lower extremity pain, or shortness of breath. She is currently following up with Dr. Goodman, and states she has not had chemotherapy or radiation yet. Patient was recently seen in this ER on 09/02, and was admitted due to the chest wall mass. Past Medical History Reviewed: Historical Data, Nursing Documentation, Vital Signs Vital Signs: Last Vital Signs Temp 98.1 F 09/18/18 12:43 Pulse 92 H 09/18/18 12:43 Resp 18 09/18/18 12:43 BP 166/110 H 09/18/18 12:43 Pulse Ox 98 09/18/18 12:43 - Medical History PMH: Hypercholesterolemia, Hyperlipidemia, Hyperthyroidism, Malignancy (breast cancer, diagnosed 2012) Denies: Chronic Kidney Disease - Surgical History Other surgeries: right mastectomy - Family History Family History: States: No Known Family Hx - Home Medications Home Medications: Ambulatory Orders Medication Instructions Recorded Dexamethasone [Decadron] 4 mg PO TID 09/02/18 Letrozole [Femara] 2.5 mg PO DAILY 09/02/18 methIMAzole [Tapazole] 2.5 mg PO DAILY 09/02/18 Docusate [Colace] 100 mg PO BID #60 cap 09/05/18 Gabapentin [Neurontin] 100 mg PO TID #90 cap 09/05/18 Morphine Sulfate [Ms Contin] 30 mg PO Q8 #60 tablet.er 09/05/18 Oxycodone HCl/Acetaminophen 1 tab PO Q6 PRN #40 tablet 09/05/18 [Endocet 10-325 mg Tablet] Lidocaine 5% [Lidoderm] 1 ea TD DAILY PRN #5 patch 09/18/18 traMADol [Ultram] 50 mg PO TID PRN 3 Days tab 09/18/18 - Allergies Allergies/Adverse Reactions: Allergies Allergy/AdvReac Type Severity Reaction Status Date / Time No Known Allergies Allergy Verified 09/18/18 12:40 Review of Systems ROS Statement: Except As Marked, All Systems Reviewed And Found Negative Gastrointestinal: Negative for: Abdominal Pain Musculoskeletal: Positive for: Back Pain (radiating to check) Neurological: Negative for: Weakness, Numbness Physical Exam - Reviewed Nursing Documentation Reviewed: Yes Vital Signs Reviewed: Yes - Physical Exam Appears: Positive for: Uncomfortable (tearful) Head Exam: Positive for: ATRAUMATIC, NORMAL INSPECTION, NORMOCEPHALIC Skin: Positive for: Normal Color, Warm Eye Exam: Positive for: EOMI, PERRL Neck: Positive for: Normal, Painless ROM, Supple Cardiovascular/Chest: Positive for: Regular Rate, Rhythm Respiratory: Positive for: Normal Breath Sounds. Negative for: Wheezing Gastrointestinal/Abdominal: Positive for: Soft, Tenderness Back: Positive for: Other (diffuse tenderness to back) Extremity: Positive for: Normal ROM. Negative for: Pedal Edema Neurologic/Psych: Positive for: Alert, Oriented - Laboratory Results Result Diagrams: 09/18/18 13:40 09/18/18 13:40 Lab Results: no acute - ECG ECG: Positive for: Interpreted By Me, Viewed By Nv ECG Rhythm: Positive for: Normal QRS, Normal ST Segment, Sinus Rhythm O2 Sat by Pulse Oximetry: 98 (RA) Pulse Ox Interpretation: Normal - Radiology X-Ray: Interpreted by Nv, Viewed By Nv X-Ray Interpretation: No Acute Disease - Progress ED Course And Treament: 1506: Stable. Chronic pain. No acute findings. Pt. to fu with her pcp. Will give rx and morphine IV now. Medical Decision Making Medical Decision Making: Impression: Acute on chronic pain, history of metastatic CA Plan: -- Labs -- IV Fluids -- Morphine 4mg IV -- EKG Prior records reviewed: 09/02 CT Chest and Neck: CT OF THE NECK: PHARYNX: Nasopharynx: Unremarkable. Oropharnx: There is lack of distension both the left vallecula and the left piriform sinus. This may be artifactual but correlation with direct visual inspection is suggested. No mass identified. Otherwise unremarkable. Hypopharynx: Unremarkable. LYMPH NODES: Unremarkable. VASCULATURE: Unremarkable. GLANDS: Normal parotid and submandibular glands. There is a nodule in the left lobe of the thyroid measuring approximately 1.7 x 2.1 x 2.8 cm. This contains with percutaneous biopsy. Correlate with thyroid ultrasound. CERVICAL SPINE: Unremarkable. CT OF THE CHEST: LUNGS: Multiple bilateral pulmonary nodules. Largest nodule seen in the superior segment right lower lobe, irregularly shaped, approximately 1.8 cm in the transv erse plane. Bilateral parenchymal and pleural-based masses. Suspicious for metastatic disease. There are scattered bilateral nonspecific ground-glass opacities. No evidence of tara consolidation. MEDIASTINUM: Unremarkable thoracic aorta. No aneurysm or dissection. Normal sized heart. Pulmonary arterial truck unremarkable. No vascular congestion. Mediastinal and bilateral hilar lymphadenopathy is noted. There are enlarged right subclavian lymph nodes, increased in size from previous examination. An enlarged right axillary node is identified. Status post right mastectomy. PLEURA: No pleural fluid. No pneumothorax. BONES: No fracture. No destructive lesion. OTHER FINDINGS: Images through the upper abdomen demonstrate old cortical scarring of the upper pole right kidney associated with nodular calcification, likely dystrophic. IMPRESSION: There is lack of adequate distention of the left vallecula and left piriform sinus. Although this may be artifactual in origin, correlation with direct visual inspection is suggested. No mass identified. No significant cervical lymphadenopathy. 2.8 cm mass in the left lobe of the thyroid with thyroid ultrasound examination. Probable pulmonary metastasis. Nonspecific scattered bilateral ground-glass pulmonary opacities. No tara consolidation. Mediastinal and bilateral hilar lymphadenopathy. Enlarged right subclavian lymph nodes. Right axillary lymphadenopathy. Scribe Attestation: Documented by Viridiana Jerry acting as a scribe for Teodoro Cleveland MD Provider Attestation: All medical record entries made by the Scribe were at my direction and personally dictated by me. I have reviewed the chart and agree that the record accurately reflects my personal performance of the history, physical exam, medical decision making, and the department course for this patient. I have also personally directed, reviewed, and agree with the discharge instructions and disposition. Disposition - Clinical Impression Clinical Impression: Chest pain - Patient ED Disposition Is Patient to be Admitted: No Counseled Patient/Family Regarding: Studies Performed, Diagnosis, Need For Followup, Rx Given - Disposition Referrals: [facility] [Outside] - 09/22/18 Disposition: Routine/Home Disposition Time: 15:07 Condition: STABLE Additional Instructions: Return if not better in 3 days. Prescriptions: Lidocaine 5% [Lidoderm] 1 ea TD DAILY PRN #5 patch PRN Reason: Pain, Moderate (4-7) traMADol [Ultram] 50 mg PO TID PRN 3 Days tab PRN Reason: Pain, Moderate (4-7) Instructions: Chest Pain Print Language: HUNGARIAN
[2018-09-18 13:48] LABS: BASO % 0.6 % (0.0-2.0); EOS % 0.1 % (0.0-4.0); HEMOGLOBIN 12.3 g/dL (12.0-16.0); LYMPH # 1.2 K/uL (1.0-4.3); MEAN CELL VOLUME 86.7 fl (81.0-99.0); MEAN CORPUSCULAR HEMOGLOBIN 27.8 pg (27.0-31.0); MEAN CORPUSCULAR HGB CONC 32.1 g/dL (33.0-37.0); MEAN PLATELET VOLUME 8.2 fl (7.2-11.7); MONO # 0.2 K/uL (0.0-0.8); MONO % 3.4 % (0.0-10.0); NEUT # 5.2 K/uL (1.8-7.0); NEUT % 77.9 % (50.0-75.0); RBC 4.42 Mil/uL (3.80-5.20); RED CELL DISTRIBUTION WIDTH 14.1 % (11.5-14.5); WHITE BLOOD COUNT 6.7 K/uL (4.8-10.8)
[2018-09-18 14:00] LABS: PROTHROMBIN TIME 11.9 Seconds (9.8-13.1)
[2018-09-18 14:03] LABS: PARTIAL THROMBOPLASTIN TIME 36.6 Seconds (25.6-37.1)
[2018-09-18 14:07] LABS: ALB/GLOB RATIO 1.3 (1.0-2.1); ALBUMIN 4.7 g/dL (3.5-5.0); ALT/SGPT 24 U/L (9-52); AST/SGOT 32 U/L (14-36); BLOOD UREA NITROGEN 10 mg/dl (7-17); CALCIUM 10.2 mg/dL (8.4-10.2); GFR NON-AFRICAN AMERICAN > 60
[2018-09-18] MEDS ORDERED: Lidocaine 5% Patch TD STA (15:09)
--- NOTE | 2018-09-18 15:27 | RAD ---
Date of service: 09/18/2018 HISTORY: Chest pain COMPARISON: No prior. FINDINGS: LUNGS: The lungs are well inflated and clear. PLEURA: No pleural effusions or pneumothorax. CARDIOVASCULAR: The heart is normal in size. There are aortic atherosclerotic calcifications present. OSSEOUS STRUCTURES: Within normal limits for the patient's age. VISUALIZED UPPER ABDOMEN: Normal. OTHER FINDINGS: There are multiple surgical clips in the right axilla. IMPRESSION: No active pulmonary disease.
[2018-09-18] MEDS ORDERED: Lidocaine 5% Patch TD ONE (15:29)
--- NOTE | 2018-09-18 16:54 | ED PDOC ---
ED Additional Note - Date & Time of Evaluation Date of Evaluation: 09/18/18 Time of Evaluation: 16:30 - Physician Additional Note Physician Additional Note: 1630 Approached by RN who reports the patient is still in persistent pain, despite being discharged and given pain medications. On my evaluation, patient with severe tenderness to palpation of right upper chest wall and right shoulder; difficulty in moving extremity due to pain. Discharge placed on hold for discussion with Dr. Adonis Goodman [address] Adonis Goodman, who states patient to be admitted for intractable pain, under medical service. Requesting pain management consult as well. Possible initiation of radiation therapy while in hospital. Scribe Attestation: Documented by Viridiana Jerry acting as a scribe for Brandie Bui MD Provider Attestation: All medical record entries made by the Scribe were at my direction and personally dictated by me. I have reviewed the chart and agree that the record accurately reflects my personal performance of the history, physical exam, medical decision making, and the department course for this patient. I have also personally directed, reviewed, and agree with the discharge instructions and disposition. Disposition Clinical Impression: Intractable pain, Breast cancer Disposition: HOSPITALIZED Disposition Time: 15:07 Condition: FAIR Prescriptions: Lidocaine 5% [Lidoderm] 1 ea TD DAILY PRN #5 patch PRN Reason: Pain, Moderate (4-7) traMADol [Ultram] 50 mg PO TID PRN 3 Days tab PRN Reason: Pain, Moderate (4-7) Instructions: Chest Pain Print Language: ROMANIAN - POA Present On Arrival: None
--- NOTE | 2018-09-18 17:01 | CARD ---
APPROVED REPORT Date of service: 09/18/2018 EKG Measurement Heart [id number] <Conclusion> Normal sinus rhythm Normal ECG
--- NOTE | 2018-09-18 19:45 | CP.PCM.CON ---
History of Present Illness - History of Present Illness History of Present Illness: Pain Management: 57 yo admitted with intractable pain secondary to breast cancer s/p mastectomy with mets to chest wall. Pt was last seen 09/02 in ER and given ms contin 30mg every 8 hours. Pain was manageable with med until it ran out last night at 10pm. Pt presented to ER today for pain. Pt to see Hugh Goodman tomorrow for possible RT. A/P Intractable pain secondary to breast cancer with mets to chest wall Discussed with Nicholas Heard from pain management. Recommendations; 1. Resume MS Contin 15mg two tablets every 8 hours beginning at 10pm tonight 2. Dilaudid 1mg q3prn for pain for breakthrough pain. 3. Dr. Heard to follow-up tomorrow for pain management. Thank you. Csear Mayers Past Patient History - Past Medical History & Family History Past Medical History?: Yes - Past Social History Smoking Status: Former Smoker - CARDIAC Hx Cardiac Disorders: Yes - PULMONARY Hx Respiratory Disorders: No - NEUROLOGICAL Hx Neurological Disorder: No - HEENT Hx HEENT Problems: No - RENAL Hx Chronic Kidney Disease: No - ENDOCRINE/METABOLIC Hx Hyperthyroidism: Yes - HEMATOLOGICAL/ONCOLOGICAL Hx Cancer: Yes (breast) - INTEGUMENTARY Hx Dermatological Problems: No - MUSCULOSKELETAL/RHEUMATOLOGICAL Hx Musculoskeletal Disorders: No - GASTROINTESTINAL Hx Gastrointestinal Disorders: No - GENITOURINARY/GYNECOLOGICAL Hx Genitourinary Disorders: No - PSYCHIATRIC Hx Psychophysiologic Disorder: No Hx Substance Use: No - SURGICAL HISTORY Hx Liver Transplant: No Hx Mastectomy: Yes (right total mastectomy with axillary dissection) Hx Tubal Ligation: Yes Hx Vascular Access Device: Yes (chemoport) - ANESTHESIA Hx Anesthesia: Yes Hx Anesthesia Reactions: No Meds Allergies/Adverse Reactions: Allergies Allergy/AdvReac Type Severity Reaction Status Date / Time No Known Allergies Allergy Verified 09/18/18 12:40 Results - Vital Signs Recent Vital Signs: Last Vital Signs Temp 98.7 F 09/18/18 18:44 Pulse 71 09/18/18 18:44 Resp 18 09/18/18 18:44 BP 160/97 H 09/18/18 18:44 Pulse Ox 98 09/18/18 18:44 - Labs Result Diagrams: 09/18/18 13:40 09/18/18 13:40 Labs: Laboratory Results - last 24 hr 09/18/18 09/18/18 09/18/18 13:40 13:40 13:40 WBC 6.7 RBC 4.42 Hgb 12.3 Hct 38.3 MCV 86.7 MCH 27.8 MCHC 32.1 L RDW 14.1 Plt Count 271 MPV 8.2 Neut % (Auto) 77.9 H Lymph % (Auto) 18.0 L [place] % (Auto) 3.4 Eos % (Auto) 0.1 Baso % (Auto) 0.6 Neut # (Auto) 5.2 Lymph # (Auto) 1.2 [place] # (Auto) 0.2 Eos # (Auto) 0.0 Baso # (Auto) 0.0 PT 11.9 INR 1.0 APTT 36.6 Sodium 139 Potassium 4.0 Chloride 98 Carbon Dioxide 27 Anion Gap 18 BUN 10 Creatinine 0.9 Est GFR ( Amer) > 60 Est GFR (Non-Af Amer) > 60 Random Glucose 115 H Calcium 10.2 Total Bilirubin 0.4 AST 32 ALT 24 Alkaline Phosphatase 136 H D Troponin I < 0.0120 Total Protein 8.3 H Albumin 4.7 Globulin 3.7 Albumin/Globulin Ratio 1.3
[2018-09-18] MEDS: Morphine 30 mg SR Tab PO SCH (21:30)
--- NOTE | 2018-09-19 08:10 | CP.PCM.PN ---
Subjective - Date & Time of Evaluation Date of Evaluation: 09/19/18 Time of Evaluation: 08:00 - Subjective Subjective: 57 yo woman w/ breast cancer and recent discovery of lung and chest wall mets. She has pain in the neck down the right arm to the right hand, which could be related to the axilla mass. There is occasional pain down the left arm as well. At home, her pain had been controlled on MS contin 30mg q8h until she ran out. She has been on chemo and will be started on XRT. Objective - Vital Signs/Intake and Output Vital Signs (last 24 hours): Temp Pulse Resp BP Pulse Ox 98.1 F 87 20 158/90 H 98 09/19/18 07:56 09/19/18 07:56 09/19/18 07:56 09/19/18 07:56 09/19/18 07:56 - Medications Medications: Current Medications Docusate Sodium (Colace) 100 mg PO BID [facility] Last Admin: 09/18/18 21:29 Dose: 100 mg Gabapentin (Neurontin) 100 mg PO TID [facility] Last Admin: 09/18/18 21:31 Dose: 100 mg Heparin Sodium (Porcine) (Heparin) 5,000 units SC Q8 [facility]; Protocol Last Admin: 09/19/18 01:00 Dose: Not Given Home Med (Letrozole [Femara]) 2.5 mg PO HS [facility] Hydromorphone HCl (Dilaudid) 1 mg IVP Q3 PRN PRN Reason: Pain, severe (8-10) Last Admin: 09/19/18 02:49 Dose: 1 mg Lidocaine (Lidoderm) 1 ea TD DAILY [facility] Methimazole (Tapazole) 2.5 mg PO DAILY [facility] Morphine Sulfate (Morphine Extended Release Tab) 30 mg PO Q8 [facility] Last Admin: 09/18/18 21:30 Dose: 30 mg - Labs Labs: 09/18/18 13:40 09/18/18 13:40 PT 11.9 Seconds (9.8-13.1) 09/18/18 13:40 INR 1.0 09/18/18 13:40 APTT 36.6 Seconds (25.6-37.1) 09/18/18 13:40 - Neck Exam Neck Exam: Tenderness - Neurological Exam Neuro motor strength exam: Right Upper Extremity: 4 Assessment and Plan (1) Intractable pain Assessment & Plan: 57 yo with metastatic breast cancer. - continue MS Contin 30mg q8h - could Dilaudid 1mg IV while hospitalized, can transition to PO for breakthrough for discharge, consider MSIR 15mg - add Neurontin to regimen, 300mg q8h - consider cervical MRI to assess radicular component of the pain Status: Acute
[2018-09-19] MEDS: Lidocaine 5% Patch TD SCH (08:19)
[2018-09-19] MEDS: methIMAzole 5 MG TAB PO SCH (08:20)
[2018-09-19] MEDS: Morphine 30 mg SR Tab PO SCH ×2 (08:24→16:26)
--- NOTE | 2018-09-19 08:48 | CP.PCM.CON ---
History of Present Illness - History of Present Illness History of Present Illness: This is a 57 yrs old female who was diagnosed to have a stage 2 breast cancer about 6 yrs ago. She was given chemotherapy and then the surgery . She has been doing well since then followed regularly in the office. She had no more problems with the breast, but had a couple of episodes of pancreatitis. She then presented to [facility] with xc/o severe pain in the right chest,axilla and all over the right chest.Scans done showed nodules in the left lung and upper lobe of the right lung.She had a biopsy of the chest wall and it was a metastic breast cancer ER and TN positive, HER negative,. She was supposed to start chemotherapy on Saturday, but yesterday she had intractable pain in the right chest wall and arm,It hurt even if it was just touched.I spoke with the radiation oncologist that I feel she will do better with RT to control her pain and then follow up with Chemotherapy P/H had 3-4 episodes of pancreatitis and was treated at [facility]. She does not smoke or drink Past Patient History - Past Medical History & Family History Past Medical History?: Yes - Past Social History Smoking Status: Former Smoker - CARDIAC Hx Cardiac Disorders: Yes - PULMONARY Hx Respiratory Disorders: No - NEUROLOGICAL Hx Neurological Disorder: No - HEENT Hx HEENT Problems: No - RENAL Hx Chronic Kidney Disease: No - ENDOCRINE/METABOLIC Hx Endocrine Disorders: Yes Hx Hyperthyroidism: Yes - HEMATOLOGICAL/ONCOLOGICAL Hx Blood Disorders: Yes Hx Cancer: Yes (Right Breast) - INTEGUMENTARY Hx Dermatological Problems: No - MUSCULOSKELETAL/RHEUMATOLOGICAL Hx Musculoskeletal Disorders: No - GASTROINTESTINAL Hx Gastrointestinal Disorders: No - GENITOURINARY/GYNECOLOGICAL Hx Genitourinary Disorders: No - PSYCHIATRIC Hx Psychophysiologic Disorder: No Hx Substance Use: No - SURGICAL HISTORY Hx Surgeries: Yes Hx Liver Transplant: No Hx Mastectomy: Yes (right total mastectomy with axillary dissection) Hx Tubal Ligation: Yes Hx Vascular Access Device: Yes (chemoport) - ANESTHESIA Hx Anesthesia: Yes Hx Anesthesia Reactions: No Hx Malignant Hyperthermia: No Has any member of the family had a problem w/ anesthesia?: No Meds Allergies/Adverse Reactions: Allergies Allergy/AdvReac Type Severity Reaction Status Date / Time No Known Allergies Allergy Verified 09/18/18 12:40 - Medications Medications: Current Medications Docusate Sodium (Colace) 100 mg PO BID [facility] Last Admin: 09/19/18 08:18 Dose: 100 mg Gabapentin (Neurontin) 300 mg PO TID [facility] Heparin Sodium (Porcine) (Heparin) 5,000 units SC Q8 [facility]; Protocol Last Admin: 09/19/18 08:18 Dose: 5,000 units Home Med (Letrozole [Femara]) 2.5 mg PO HS [facility] Hydromorphone HCl (Dilaudid) 1 mg IVP Q3 PRN PRN Reason: Pain, severe (8-10) Last Admin: 09/19/18 02:49 Dose: 1 mg Lidocaine (Lidoderm) 1 ea TD DAILY [facility] Last Admin: 09/19/18 08:19 Dose: 1 ea Methimazole (Tapazole) 2.5 mg PO DAILY [facility] Last Admin: 09/19/18 08:20 Dose: 2.5 mg Morphine Sulfate (Morphine Extended Release Tab) 30 mg PO Q8 [facility] Last Admin: 09/19/18 08:24 Dose: 30 mg Physical Exam - Additional Findings Additional findings: Physical exam; Patients BP of 158/90 is probably due to her pain of level 7 today down from 10/10 yesterday neck; supple, non adenopathy Chest; Pt has right axillary pain , air entry good ,,no rales or rhonchi heart; RsR, no murmur Abd; Soft, no mass,no h/s megaly Exteremities;; swelling in the right arm , very tender from the shoulder to the tip of her righjt hand. Results - Vital Signs Recent Vital Signs: Last Vital Signs Temp 98.1 F 09/19/18 07:56 Pulse 87 09/19/18 07:56 Resp 20 09/19/18 07:56 BP 158/90 H 09/19/18 07:56 Pulse Ox 98 09/19/18 07:56 - Labs Result Diagrams: 09/18/18 13:40 09/18/18 13:40 Labs: Laboratory Results - last 24 hr 09/18/18 09/18/18 09/18/18 13:40 13:40 13:40 WBC 6.7 RBC 4.42 Hgb 12.3 Hct 38.3 MCV 86.7 MCH 27.8 MCHC 32.1 L RDW 14.1 Plt Count 271 MPV 8.2 Neut % (Auto) 77.9 H Lymph % (Auto) 18.0 L [place] % (Auto) 3.4 Eos % (Auto) 0.1 Baso % (Auto) 0.6 Neut # (Auto) 5.2 Lymph # (Auto) 1.2 [place] # (Auto) 0.2 Eos # (Auto) 0.0 Baso # (Auto) 0.0 PT 11.9 INR 1.0 APTT 36.6 Sodium 139 Potassium 4.0 Chloride 98 Carbon Dioxide 27 Anion Gap 18 BUN 10 Creatinine 0.9 Est GFR ( Amer) > 60 Est GFR (Non-Af Amer) > 60 Random Glucose 115 H Calcium 10.2 Total Bilirubin 0.4 AST 32 ALT 24 Alkaline Phosphatase 136 H D Troponin I < 0.0120 Total Protein 8.3 H Albumin 4.7 Globulin 3.7 Albumin/Globulin Ratio 1.3 Assessment & Plan - Assessment and Plan (Free Text) Assessment: Impression; Breast cancer with metastasis to the lung. and chest wall. Intractable pain. Plan: Plan; Will send her to [facility] for radiation therapy as out patient Continue parenteral analgesics while in the hospita. - Date & Time Date: 09/19/18 Time:
--- NOTE | 2018-09-19 11:26 | CP.PCM.CON ---
History of Present Illness - History of Present Illness History of Present Illness: Ms Denise is a 57 year old female with a history of a right breast cancer who now has severe right chest pain with radiation to the right arm. She initially was diagnosed in 2012. At that time, she had presented with a right breast mass. She reportedly had a diagnostic mammogram and ultrasound which confirmed a mass. She then had a mastectomy on February 16, 2013 which revealed a 5cm mass with 15/16 nodes positive. Following surgery, she had chemotherapy and received antiestrogen therapy. She did not have radiation at that time. She did well until recently when she started developing right chest and arm pain which increased in intensity. She also reportedly had decreased range of motion as well as decreased strength and feeling in the arm. [place] [facility] [place] identified a mass in the lymph nodes. She then went to [place] emergency room due to uncontrolled pain. There she had a CT of the neck and chest on September 02, 2018 which showed multiple pulmonary nodules with an increasing right subclavian node and right axillary adenopathy. A biopsy on September 04, 2018 confirmed a poorly differentiated cancer. ER/ME positive and her-2-tai negative. She returned back to the emergency room yesterday to pain control issues. Review of Systems - Constitutional Constitutional: Weight Loss, Weakness - Musculoskeletal Musculoskeletal: Muscle Weakness, Neck Pain, Numbness Additional comments: right axillary and arm pain with decreased sensation, strength and decreased range of motion Past Patient History - Past Medical History & Family History Past Medical History?: Yes - Past Social History Smoking Status: Former Smoker Alcohol: None Home Situation {Lives}: With Family - CARDIAC Hx Cardiac Disorders: Yes - PULMONARY Hx Respiratory Disorders: No - NEUROLOGICAL Hx Neurological Disorder: No - HEENT Hx HEENT Problems: No - RENAL Hx Chronic Kidney Disease: No - ENDOCRINE/METABOLIC Hx Endocrine Disorders: Yes Hx Hyperthyroidism: Yes - HEMATOLOGICAL/ONCOLOGICAL Hx Blood Disorders: Yes Hx Cancer: Yes (Right Breast) - INTEGUMENTARY Hx Dermatological Problems: No - MUSCULOSKELETAL/RHEUMATOLOGICAL Hx Musculoskeletal Disorders: No - GASTROINTESTINAL Hx Gastrointestinal Disorders: No - GENITOURINARY/GYNECOLOGICAL Hx Genitourinary Disorders: No - PSYCHIATRIC Hx Psychophysiologic Disorder: No Hx Substance Use: No - SURGICAL HISTORY Hx Surgeries: Yes Hx Liver Transplant: No Hx Mastectomy: Yes (right total mastectomy with axillary dissection) Hx Tubal Ligation: Yes Hx Vascular Access Device: Yes (chemoport) - ANESTHESIA Hx Anesthesia: Yes Hx Anesthesia Reactions: No Hx Malignant Hyperthermia: No Has any member of the family had a problem w/ anesthesia?: No Meds Allergies/Adverse Reactions: Allergies Allergy/AdvReac Type Severity Reaction Status Date / Time No Known Allergies Allergy Verified 09/18/18 12:40 - Medications Medications: Current Medications Docusate Sodium (Colace) 100 mg PO BID [facility] Last Admin: 09/19/18 08:18 Dose: 100 mg Gabapentin (Neurontin) 300 mg PO TID [facility] Heparin Sodium (Porcine) (Heparin) 5,000 units SC Q8 [facility]; Protocol Last Admin: 09/19/18 08:18 Dose: 5,000 units Home Med (Letrozole [Femara]) 2.5 mg PO HS [facility] Hydromorphone HCl (Dilaudid) 1 mg IVP Q3 PRN PRN Reason: Pain, severe (8-10) Last Admin: 09/19/18 02:49 Dose: 1 mg Lidocaine (Lidoderm) 1 ea TD DAILY [facility] Last Admin: 09/19/18 08:19 Dose: 1 ea Methimazole (Tapazole) 2.5 mg PO DAILY [facility] Last Admin: 09/19/18 08:20 Dose: 2.5 mg Morphine Sulfate (Morphine Extended Release Tab) 30 mg PO Q8 [facility] Last Admin: 09/19/18 08:24 Dose: 30 mg Physical Exam - Head Exam Head Exam: NORMAL INSPECTION - Eye Exam Eye Exam: EOMI - ENT Exam ENT Exam: Mucous Membranes Moist - Respiratory Exam Respiratory Exam: Clear to Auscultation Bilateral - Cardiovascular Exam Cardiovascular Exam: REGULAR RHYTHM - GI/Abdominal Exam GI & Abdominal Exam: Normal Bowel Sounds - Neurological Exam Neurological exam: CN II-XII Intact, Oriented x3 Additional comments: decreased range of motion of right arm, paresthesia of arm as well as strength Results - Vital Signs Recent Vital Signs: Last Vital Signs Temp 98.1 F 09/19/18 07:56 Pulse 87 09/19/18 07:56 Resp 20 09/19/18 07:56 BP 158/90 H 09/19/18 07:56 Pulse Ox 98 09/19/18 07:56 - Labs Result Diagrams: 09/18/18 13:40 09/18/18 13:40 Labs: Laboratory Results - last 24 hr 09/18/18 09/18/18 09/18/18 13:40 13:40 13:40 WBC 6.7 RBC 4.42 Hgb 12.3 Hct 38.3 MCV 86.7 MCH 27.8 MCHC 32.1 L RDW 14.1 Plt Count 271 MPV 8.2 Neut % (Auto) 77.9 H Lymph % (Auto) 18.0 L [place] % (Auto) 3.4 Eos % (Auto) 0.1 Baso % (Auto) 0.6 Neut # (Auto) 5.2 Lymph # (Auto) 1.2 [place] # (Auto) 0.2 Eos # (Auto) 0.0 Baso # (Auto) 0.0 PT 11.9 INR 1.0 APTT 36.6 Sodium 139 Potassium 4.0 Chloride 98 Carbon Dioxide 27 Anion Gap 18 BUN 10 Creatinine 0.9 Est GFR ( Amer) > 60 Est GFR (Non-Af Amer) > 60 Random Glucose 115 H Calcium 10.2 Total Bilirubin 0.4 AST 32 ALT 24 Alkaline Phosphatase 136 H D Troponin I < 0.0120 Total Protein 8.3 H Albumin 4.7 Globulin 3.7 Albumin/Globulin Ratio 1.3 Assessment & Plan - Assessment and Plan (Free Text) Assessment: Ms Denise is a 57 year old female with a history of a right breast cancer who now has severe right chest pain with radiation to the right arm due to 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 We would concur that she would benefit from palliative radiation to the regionally involved nodes to mitigate her symptoms. We spoke to her and her daughter about radiation including the risks and benefits. Informed consent was obtained. We will schedule her for a simulation session today so that she can begin ion Saturday. While an inpatient, she may benefit from a metastatic work-up now that she has recurrent disease including CT of the head and CT of the abdomen and pelvis with contrast to know the extent of the metastatic disease
[2018-09-20] MEDS: Morphine 30 mg SR Tab PO SCH ×3 (00:16→16:20)
[2018-09-20] MEDS: Lidocaine 5% Patch TD SCH (09:02)
[2018-09-20] MEDS: methIMAzole 5 MG TAB PO SCH (09:03)
--- NOTE | 2018-09-20 10:06 | CP.PCM.PN ---
Subjective - Date & Time of Evaluation Date of Evaluation: 09/20/18 Time of Evaluation: 10:03 - Subjective Subjective: Patient's pain is in control with the dilaudid and the morphine. She was seen at [facility] for radiation consultation, and will start her RT tomorrow. Dr Heard has asked for a cervical spine MRI to determine if it the reason for bi lateral pain in the shoulders and chest. Objective - Vital Signs/Intake and Output Vital Signs (last 24 hours): Temp Pulse Resp BP Pulse Ox 98.2 F 75 20 99/64 L 95 09/20/18 08:28 09/20/18 08:28 09/20/18 08:28 09/20/18 08:28 09/20/18 08:28 - Medications Medications: Current Medications Docusate Sodium (Colace) 100 mg PO BID [facility] Last Admin: 09/20/18 09:03 Dose: 100 mg Gabapentin (Neurontin) 300 mg PO TID [facility] Last Admin: 09/20/18 09:03 Dose: 300 mg Heparin Sodium (Porcine) (Heparin) 5,000 units SC Q8 [facility]; Protocol Last Admin: 09/20/18 09:03 Dose: 5,000 units Home Med (Letrozole [Femara]) 2.5 mg PO HS [facility] Hydromorphone HCl (Dilaudid) 1 mg IVP Q3 PRN PRN Reason: Pain, severe (8-10) Last Admin: 09/20/18 07:17 Dose: 1 mg Lidocaine (Lidoderm) 1 ea TD DAILY [facility] Last Admin: 09/20/18 09:02 Dose: 1 ea Methimazole (Tapazole) 2.5 mg PO DAILY [facility] Last Admin: 09/20/18 09:03 Dose: 2.5 mg Morphine Sulfate (Morphine Extended Release Tab) 30 mg PO Q8 [facility] Last Admin: 09/20/18 09:09 Dose: 30 mg - Labs Labs: 09/18/18 13:40 09/18/18 13:40 PT 11.9 Seconds (9.8-13.1) 09/18/18 13:40 INR 1.0 09/18/18 13:40 APTT 36.6 Seconds (25.6-37.1) 09/18/18 13:40
[2018-09-20] MEDS ORDERED: Gadodiamide 287 MG/ML VIAL (15ML) IV ONE (10:56)
--- NOTE | 2018-09-20 14:14 | MRI ---
Date of service: 09/20/2018 PROCEDURE: MR CERVICAL SPINE WITH AND WITHOUT CONTRAST HISTORY: Possible spine metastasis COMPARISON: [place] in made with CT scan neck 09/02/2018. TECHNIQUE: Multiecho multiplanar sequences were performed through the cervical spine with and without the use of intravenous contrast.. 17 cc Omniscan contrast material injected for this examination. FINDINGS: Cervical note the examination is limited by motion artifact. No acute compression fractures no retropulsed fragments. Vertebral bodies exhibit normal stature and alignment. Facets normally aligned. Marrow signal appears grossly unremarkable with no obvious evidence to suggest bone metastases. Consider follow-up bone scan if further evaluation is required. Paraspinal soft tissues unremarkable. Craniocervical junction unremarkable.. There are no definitive focal areas of abnormal signal or contrast enhancement within or along the surfaces of the visualized spinal cord. C2-3: Mild disc desiccation. No disc herniation however some very minor disc bulging changes associate with a tiny radial fissure along the posterior annulus seen. Central canal appears adequate as do the exit foramina despite slightly prominent facets.. C3-4: Mild age related disc desiccation however disc space height relatively maintained. Minimal central disc bulge flattens the ventral surface of the thecal sac though does not result in significant cord compression. Central canal slightly narrowed. Exit foramina appear adequate despite minimal degenerative squaring of the uncovertebral joints and mild facet arthropathy. C4-5: Mild disc desiccation. Disc space height maintained. No disc herniation or significant disc bulge. The uncovertebral facets are slightly overgrown. Exit foramina appear adequate. C5-C6: There is a mild age related disc desiccation. Disc space height maintained. Small central and bilateral disc herniation indents the ventral surface of the thecal sac and spinal cord. There is mild central canal stenosis on. The uncovertebral and facet joints are slightly overgrown. Exit foramina appear adequate so far as can be seen. C6-C7: No disc herniation, spinal canal stenosis or neuroforaminal narrowing. C7-T1: No disc herniation, spinal canal stenosis or neural foraminal narrowing. OTHER FINDINGS: Redemonstrated is an approximately 3.2cm CC x 2.2cm AP cm heterogeneous lesion in the left lobe thyroid gland which is not well delineated on this study although seen to better advantage on prior CT scan of the neck. Recommend follow-up thyroid ultrasound for further evaluation.. IMPRESSION: Limited motion degraded study. Mild multilevel degenerative spondylosis most notably affecting the C5-C6 level as described. No evidence to suggest bony metastasis. No abnormal signal or contrast enhancement within or along the surfaces of visualized spinal cord. Heterogeneous lesion left lobe thyroid gland for which thyroid ultrasound follow-up is recommended as above
[2018-09-21] MEDS: Morphine 30 mg SR Tab PO SCH ×3 (00:29→17:21)
--- NOTE | 2018-09-21 02:51 | CP.PCM.HP ---
History of Present Illness - History of Present Illness History of Present Illness: CC: Chest, Back and Upper Extremitit Pain History of present illness A 57yo female, with history of breast cancer and subsequent right mastectomy found to have recent history of mets to the chest wall, comes to ER for evaluation of chest, right upper extremity and back pain which got worsened since yesterday. Patient states she takes PO morphine, but has run out of the medication. Patient stated that the pain medication was not controlling the pain. She otherwise denies any weakness, numbness, abdominal pain, lower extremity pain, or shortness of breath. She is currently following up with Dr. Goodman, and states she has not had chemotherapy or radiation yet. Patient was recently seen in this ER on 09/02, and was admitted due to the chest wall mass. After discussing with the oncologist, patient was admitted for intractable c hest, back, right arm and hand pain. Patient will be managed with adjustment of pain medication and radiation. Present on Admission - Present on Admission Any Indicators Present on Admission: No Review of Systems - Review of Systems All systems: reviewed and no additional remarkable complaints except Review of Systems: As per HPI Past Patient History - Past Medical History & Family History Past Medical History?: Yes - Past Social History Smoking Status: Former Smoker Alcohol: None Drugs: Denies Home Situation {Lives}: With Family - CARDIAC Hx Cardiac Disorders: Yes - PULMONARY Hx Respiratory Disorders: No - NEUROLOGICAL Hx Neurological Disorder: No - HEENT Hx HEENT Problems: No - RENAL Hx Chronic Kidney Disease: No - ENDOCRINE/METABOLIC Hx Endocrine Disorders: Yes Hx Hyperthyroidism: Yes - HEMATOLOGICAL/ONCOLOGICAL Hx Blood Disorders: Yes Hx Cancer: Yes (Right Breast) - INTEGUMENTARY Hx Dermatological Problems: No - MUSCULOSKELETAL/RHEUMATOLOGICAL Hx Musculoskeletal Disorders: No - GASTROINTESTINAL Hx Gastrointestinal Disorders: No - GENITOURINARY/GYNECOLOGICAL Hx Genitourinary Disorders: No - PSYCHIATRIC Hx Psychophysiologic Disorder: No Hx Substance Use: No - SURGICAL HISTORY Hx Surgeries: Yes Hx Liver Transplant: No Hx Mastectomy: Yes (right total mastectomy with axillary dissection) Hx Tubal Ligation: Yes Hx Vascular Access Device: Yes (chemoport) - ANESTHESIA Hx Anesthesia: Yes Hx Anesthesia Reactions: No Hx Malignant Hyperthermia: No Has any member of the family had a problem w/ anesthesia?: No Meds Allergies/Adverse Reactions: Allergies Allergy/AdvReac Type Severity Reaction Status Date / Time No Known Allergies Allergy Verified 09/18/18 12:40 Physical Exam - Constitutional Appears: In Acute Distress - Head Exam Head Exam: ATRAUMATIC, NORMAL INSPECTION, NORMOCEPHALIC - Eye Exam Eye Exam: EOMI, Normal appearance, PERRL Pupil Exam: NORMAL ACCOMODATION, PERRL - ENT Exam ENT Exam: Mucous Membranes Moist, Normal Exam - Neck Exam Neck exam: Positive for: Normal Inspection - Respiratory Exam Respiratory Exam: Clear to Auscultation Bilateral, NORMAL BREATHING PATTERN - Cardiovascular Exam Cardiovascular Exam: REGULAR RHYTHM, +S1, +S2 - GI/Abdominal Exam GI & Abdominal Exam: Normal Bowel Sounds, Soft. absent: Tenderness - Extremities Exam Additional comments: Right mastectomy with right upper extremity swelling, and tenderness movement of the right upper extremity. - Back Exam Back exam: NORMAL INSPECTION - Neurological Exam Neurological exam: Alert, CN II-XII Intact, Normal Gait, Oriented x3, Reflexes Normal - Psychiatric Exam Psychiatric exam: Normal Affect, Normal Mood - Skin Skin Exam: Dry, Intact, Normal Color, Warm Results - Vital Signs Recent Vital Signs: Last Vital Signs Temp 98.5 F 09/21/18 00:14 Pulse 85 09/21/18 00:14 Resp 19 09/21/18 00:14 BP 101/68 09/21/18 00:14 Pulse Ox 96 09/21/18 00:14 - Labs Result Diagrams: 09/18/18 13:40 09/18/18 13:40 - Imaging and Cardiology Chest x-ray Status: Report reviewed by me Additional comment: Date of service: 09/18/2018 HISTORY: Chest pain COMPARISON: No prior. FINDINGS: LUNGS: The lungs are well inflated and clear. PLEURA: No pleural effusions or pneumothorax. CARDIOVASCULAR: The heart is normal in size. There are aortic atherosclerotic calcifications present. OSSEOUS STRUCTURES: Within normal limits for the patient's age. VISUALIZED UPPER ABDOMEN: Normal. OTHER FINDINGS: There are multiple surgical clips in the right axilla. IMPRESSION: No active pulmonary disease. Assessment & Plan (1) Breast cancer Status: Acute Priority: High (2) Intractable pain Status: Acute Priority: High (3) Mass of chest wall Status: Acute Priority: High - Assessment and Plan (Free Text) Plan: Pain control as Pain management IV fluid Oncology on board, and patient will receive radiation therapy MRI C-spine DVT prophylaxis
--- NOTE | 2018-09-21 02:52 | CP.PCM.PN ---
Subjective - Date & Time of Evaluation Date of Evaluation: 09/20/18 Time of Evaluation: 18:30 Objective - Vital Signs/Intake and Output Vital Signs (last 24 hours): Temp Pulse Resp BP Pulse Ox 98.5 F 85 19 101/68 96 09/21/18 00:14 09/21/18 00:14 09/21/18 00:14 09/21/18 00:14 09/21/18 00:14 - Medications Medications: Current Medications Docusate Sodium (Colace) 100 mg PO BID [facility] Last Admin: 09/20/18 16:21 Dose: 100 mg Gabapentin (Neurontin) 300 mg PO TID [facility] Last Admin: 09/20/18 16:22 Dose: 300 mg Heparin Sodium (Porcine) (Heparin) 5,000 units SC Q8 [facility]; Protocol Last Admin: 09/21/18 00:32 Dose: 5,000 units Home Med (Letrozole [Femara]) 2.5 mg PO HS [facility] Hydromorphone HCl (Dilaudid) 1 mg IVP Q3 PRN PRN Reason: Pain, severe (8-10) Last Admin: 09/20/18 15:47 Dose: 1 mg Lidocaine (Lidoderm) 1 ea TD DAILY [facility] Last Admin: 09/20/18 09:02 Dose: 1 ea Methimazole (Tapazole) 2.5 mg PO DAILY [facility] Last Admin: 09/20/18 09:03 Dose: 2.5 mg Morphine Sulfate (Morphine Extended Release Tab) 30 mg PO Q8 [facility] Last Admin: 09/21/18 00:29 Dose: 30 mg - Labs Labs: 09/18/18 13:40 09/18/18 13:40 PT 11.9 Seconds (9.8-13.1) 09/18/18 13:40 INR 1.0 09/18/18 13:40 APTT 36.6 Seconds (25.6-37.1) 09/18/18 13:40
--- NOTE | 2018-09-21 07:31 | CP.PCM.PN ---
Subjective - Date & Time of Evaluation Date of Evaluation: 09/21/18 Time of Evaluation: 07:15 - Subjective Subjective: Events noted, chart reviewed. Patient will start XRT Saturday. Pain is better controlled on current regimen, and patient denies side effects. MRI of cervical spine didn't reveal significant disc herniations or tumor involvement. Objective - Vital Signs/Intake and Output Vital Signs (last 24 hours): Temp Pulse Resp BP Pulse Ox 98.5 F 85 19 101/68 96 09/21/18 00:14 09/21/18 00:14 09/21/18 00:14 09/21/18 00:14 09/21/18 00:14 - Medications Medications: Current Medications Docusate Sodium (Colace) 100 mg PO BID [facility] Last Admin: 09/20/18 16:21 Dose: 100 mg Gabapentin (Neurontin) 300 mg PO TID [facility] Last Admin: 09/20/18 16:22 Dose: 300 mg Heparin Sodium (Porcine) (Heparin) 5,000 units SC Q8 [facility]; Protocol Last Admin: 09/21/18 00:32 Dose: 5,000 units Home Med (Letrozole [Femara]) 2.5 mg PO HS [facility] Hydromorphone HCl (Dilaudid) 1 mg IVP Q3 PRN PRN Reason: Pain, severe (8-10) Last Admin: 09/20/18 15:47 Dose: 1 mg Lidocaine (Lidoderm) 1 ea TD DAILY [facility] Last Admin: 09/20/18 09:02 Dose: 1 ea Methimazole (Tapazole) 2.5 mg PO DAILY [facility] Last Admin: 09/20/18 09:03 Dose: 2.5 mg Morphine Sulfate (Morphine Extended Release Tab) 30 mg PO Q8 [facility] Last Admin: 09/21/18 00:29 Dose: 30 mg - Labs Labs: 09/18/18 13:40 09/18/18 13:40 PT 11.9 Seconds (9.8-13.1) 09/18/18 13:40 INR 1.0 09/18/18 13:40 APTT 36.6 Seconds (25.6-37.1) 09/18/18 13:40 - Constitutional Appears: No Acute Distress Assessment and Plan (1) Intractable pain Assessment & Plan: 58 yo woman w/ metastatic breast CA with axillary involvement likely causing right arm pain. - continue MS Contin 30mg q8h + Dilaudid IV, Neurontin - f/u onc, rad-onc rec's - MS contin, MSIR, Neurontin for discharge Status: Acute
[2018-09-21] MEDS: Lidocaine 5% Patch TD SCH (08:51)
[2018-09-21] MEDS: methIMAzole 5 MG TAB PO SCH (08:52)
--- NOTE | 2018-09-21 08:57 | CP.PCM.PN ---
Subjective - Date & Time of Evaluation Date of Evaluation: 09/21/18 Time of Evaluation: 08:55 - Subjective Subjective: Pt is doing well with the present regimen of analgesic. She is to start RT tomorrow, Objective - Vital Signs/Intake and Output Vital Signs (last 24 hours): Temp Pulse Resp BP Pulse Ox 98.5 F 78 18 102/65 95 09/21/18 08:18 09/21/18 08:18 09/21/18 08:18 09/21/18 08:18 09/21/18 08:18 - Medications Medications: Current Medications Docusate Sodium (Colace) 100 mg PO BID [facility] Last Admin: 09/21/18 08:52 Dose: 100 mg Gabapentin (Neurontin) 300 mg PO TID [facility] Last Admin: 09/21/18 08:52 Dose: 300 mg Heparin Sodium (Porcine) (Heparin) 5,000 units SC Q8 [facility]; Protocol Last Admin: 09/21/18 08:51 Dose: 5,000 units Home Med (Letrozole [Femara]) 2.5 mg PO [facility] Hydromorphone HCl (Dilaudid) 1 mg IVP Q3 PRN PRN Reason: Pain, severe (8-10) Last Admin: 09/20/18 15:47 Dose: 1 mg Lidocaine (Lidoderm) 1 ea TD DAILY [facility] Last Admin: 09/21/18 08:51 Dose: 1 ea Methimazole (Tapazole) 2.5 mg PO DAILY [facility] Last Admin: 09/21/18 08:52 Dose: 2.5 mg Morphine Sulfate (Morphine Extended Release Tab) 30 mg PO Q8 [facility] Last Admin: 09/21/18 00:29 Dose: 30 mg - Labs Labs: 09/18/18 13:40 09/18/18 13:40 PT 11.9 Seconds (9.8-13.1) 09/18/18 13:40 INR 1.0 09/18/18 13:40 APTT 36.6 Seconds (25.6-37.1) 09/18/18 13:40
[2018-09-21] MEDS ORDERED: Iohexol 240 (50 ml) PO ONE (08:58)
[2018-09-22] MEDS: Morphine 30 mg SR Tab PO SCH ×3 (01:03→16:43)
--- NOTE | 2018-09-22 02:05 | CP.PCM.PN ---
Subjective - Date & Time of Evaluation Date of Evaluation: 09/21/18 Objective - Vital Signs/Intake and Output Vital Signs (last 24 hours): Temp Pulse Resp BP Pulse Ox 98.9 F 59 L 20 102/68 96 09/22/18 00:27 09/22/18 00:27 09/22/18 00:27 09/22/18 00:27 09/22/18 00:27 - Medications Medications: Current Medications Docusate Sodium (Colace) 100 mg PO BID [facility] Last Admin: 09/21/18 17:21 Dose: 100 mg Gabapentin (Neurontin) 300 mg PO TID [facility] Last Admin: 09/21/18 17:21 Dose: 300 mg Heparin Sodium (Porcine) (Heparin) 5,000 units SC Q8 [facility]; Protocol Last Admin: 09/22/18 01:05 Dose: 5,000 units Home Med (Letrozole [Femara]) 2.5 mg PO HS [facility] Hydromorphone HCl (Dilaudid) 1 mg IVP Q3 PRN PRN Reason: Pain, severe (8-10) Last Admin: 09/21/18 21:11 Dose: 1 mg Lidocaine (Lidoderm) 1 ea TD DAILY [facility] Last Admin: 09/21/18 08:51 Dose: 1 ea Methimazole (Tapazole) 2.5 mg PO DAILY [facility] Last Admin: 09/21/18 08:52 Dose: 2.5 mg Morphine Sulfate (Morphine Extended Release Tab) 30 mg PO Q8 [facility] Last Admin: 09/22/18 01:03 Dose: 30 mg - Labs Labs: 09/18/18 13:40 09/18/18 13:40 PT 11.9 Seconds (9.8-13.1) 09/18/18 13:40 INR 1.0 09/18/18 13:40 APTT 36.6 Seconds (25.6-37.1) 09/18/18 13:40
--- NOTE | 2018-09-22 09:22 | CP.PCM.PN ---
Subjective - Date & Time of Evaluation Date of Evaluation: 09/22/18 Time of Evaluation: : - Subjective Subjective: Pt's pain is fairly well controlled with the present regimen. She will start radiation tomorrow. Hopefully the pain will be better than that Will ck CBC from today. Objective - Vital Signs/Intake and Output Vital Signs (last 24 hours): Temp Pulse Resp BP Pulse Ox 98.5 F 82 20 107/71 95 09/22/18 07:00 09/22/18 07:00 09/22/18 07:00 09/22/18 07:00 09/22/18 07:00 - Medications Medications: Current Medications Docusate Sodium (Colace) 100 mg PO BID [facility] Last Admin: 09/21/18 17:21 Dose: 100 mg Gabapentin (Neurontin) 300 mg PO TID [facility] Last Admin: 09/21/18 17:21 Dose: 300 mg Heparin Sodium (Porcine) (Heparin) 5,000 units SC Q8 [facility]; Protocol Last Admin: 09/22/18 01:05 Dose: 5,000 units Home Med (Letrozole [Femara]) 2.5 mg PO HS [facility] Last Admin: 09/21/18 22:00 Dose: Not Given Hydromorphone HCl (Dilaudid) 1 mg IVP Q3 PRN PRN Reason: Pain, severe (8-10) Last Admin: 09/21/18 21:11 Dose: 1 mg Lidocaine (Lidoderm) 1 ea TD DAILY [facility] Last Admin: 09/21/18 08:51 Dose: 1 ea Methimazole (Tapazole) 2.5 mg PO DAILY [facility] Last Admin: 09/21/18 08:52 Dose: 2.5 mg Morphine Sulfate (Morphine Extended Release Tab) 30 mg PO Q8 [facility] Last Admin: 09/22/18 01:03 Dose: 30 mg - Labs Labs: 09/18/18 13:40 09/18/18 13:40 PT 11.9 Seconds (9.8-13.1) 09/18/18 13:40 INR 1.0 09/18/18 13:40 APTT 36.6 Seconds (25.6-37.1) 09/18/18 13:40
[2018-09-22] MEDS: methIMAzole 5 MG TAB PO SCH (09:40)
[2018-09-22] MEDS: Lidocaine 5% Patch TD SCH (09:41)
[2018-09-22] MEDS ORDERED: Iohexol 300 100 ML IJ ONE (12:12)
[2018-09-22] MEDS ORDERED: Sodium Chloride 0.9% 50 ML IV ONE (12:13)
[2018-09-22 14:08] LABS: HEMOGLOBIN 11.4 g/dL (12.0-16.0); MEAN CELL VOLUME 85.3 fl (81.0-99.0); MEAN CORPUSCULAR HEMOGLOBIN 27.8 pg (27.0-31.0); MEAN CORPUSCULAR HGB CONC 32.5 g/dL (33.0-37.0); RBC 4.1 Mil/uL (3.80-5.20)
[2018-09-22 14:24] LABS: BLOOD UREA NITROGEN 13 mg/dl (7-17); CALCIUM 9.8 mg/dL (8.4-10.2); GFR NON-AFRICAN AMERICAN > 60
--- NOTE | 2018-09-22 16:41 | CT ---
Date of service: 09/22/2018 PROCEDURE: CT Abdomen and Pelvis with contrast HISTORY: metastatic breast cancer COMPARISON: Lung base sections from neck/chest CT with contrast 09/02/2018 and prior chest, abdomen and pelvis CT including in 08/19/2017. TECHNIQUE: Following oral and intravenous contrast administration, a CT examination of the abdomen and pelvis was performed from the domes of the diaphragms to the symphysis pubis with reformatted datasets provided not only axial but also sagittal and coronal series. Contrast dose: Omnipaque 300, 95 cc Radiation dose: Total exam DLP = 844.86 mGy-cm. This CT exam was performed using one or more of the following dose reduction techniques: Automated exposure control, adjustment of the mA and/or kV according to patient size, and/or use of iterative reconstruction technique. FINDINGS: LOWER THORAX: Multiple pulmonary nodules are stable at the bilateral lung bases as imaged. No definitive new nodule appreciated bilaterally with patchy bilateral subsegmental atelectasis identified bilaterally. Trace right pleural effusion evident. Cardiomegaly stable. LIVER: Unremarkable. No gross lesion or ductal dilatation. GALLBLADDER AND BILE DUCTS: Unremarkable. PANCREAS: Unremarkable. No gross lesion or ductal dilatation. SPLEEN: Unremarkable. ADRENALS: Unremarkable. No mass. KIDNEYS AND URETERS: No obstructive uropathy or perinephric reactive changes are identified bilaterally. Small areas of cortical loss identified at the upper midpole right kidney once again reflecting post inflammatory or post infarct changes. An 8 mm calcification is associated with the parenchyma in the periphery at 1 of these areas of tissue loss, once again. Intrarenal calculus lower pole right kidney again evident. VASCULATURE: Unremarkable. No aortic aneurysm. No aortic atherosclerotic calcification or mural plaque present. BOWEL: No bowel obstruction identified. Oral contrast is small large-bowel loops appear unremarkable although relatively prominent amount retained fecal material seen throughout the colon which may indicate constipation. Clinically correlate further. APPENDIX: Normal appendix. PERITONEUM: Unremarkable. No free fluid. No free air. LYMPH NODES: Unremarkable. No enlarged lymph nodes. BLADDER: Unremarkable. REPRODUCTIVE: Post Essure related tubal ligation identified bilaterally. BONES: Dextroscoliotic thoracolumbar spinal deformity reiterated. OTHER FINDINGS: None. IMPRESSION: 1. No suspicious findings to suggest intra-abdominal or pelvic metastasis or significant lymphadenopathy. 2. Intrarenal calculus is nonobstructive at the lower pole right kidney. Postinfectious or post infarct changes are again seen related to the upper midpole right kidney once again. Unremarkable left kidney. 3. Multiple small bilateral pulmonary nodules are again seen scattered at the bilateral lung bases.
[2018-09-23] MEDS: Morphine 30 mg SR Tab PO SCH ×3 (01:32→17:23)
--- NOTE | 2018-09-23 09:50 | CP.PCM.PN ---
Subjective - Date & Time of Evaluation Date of Evaluation: 09/23/18 Time of Evaluation: 09:47 - Subjective Subjective: Pt has gone for her second dose of Radiation therapy. . If po medicatiomns are to be given will check with Dr Heard what to give. She will start chemotherapy after RT is done. Objective - Vital Signs/Intake and Output Vital Signs (last 24 hours): Temp Pulse Resp BP Pulse Ox 98.1 F 79 19 99/65 L 96 09/23/18 09:00 09/23/18 07:50 09/23/18 09:00 09/23/18 09:00 09/23/18 07:50 - Medications Medications: Current Medications Docusate Sodium (Colace) 100 mg PO BID [facility] Last Admin: 09/22/18 16:45 Dose: 100 mg Gabapentin (Neurontin) 300 mg PO TID [facility] Last Admin: 09/22/18 16:33 Dose: 300 mg Heparin Sodium (Porcine) (Heparin) 5,000 units SC Q8 [facility]; Protocol Last Admin: 09/23/18 01:33 Dose: 5,000 units Home Med (Letrozole [Femara]) 2.5 mg PO HS [facility] Last Admin: 09/22/18 21:27 Dose: 2.5 mg Hydromorphone HCl (Dilaudid) 1 mg IVP Q3 PRN PRN Reason: Pain, severe (8-10) Last Admin: 09/23/18 06:11 Dose: 1 mg Lactulose (Enulose) 20 gm PO DAILY PRN PRN Reason: Constipation Last Admin: 09/22/18 16:45 Dose: 20 gm Lidocaine (Lidoderm) 1 ea TD DAILY [facility] Last Admin: 09/22/18 09:41 Dose: 1 ea Methimazole (Tapazole) 2.5 mg PO DAILY [facility] Last Admin: 09/22/18 09:40 Dose: 2.5 mg Morphine Sulfate (Morphine Extended Release Tab) 30 mg PO Q8 [facility] Last Admin: 09/23/18 01:32 Dose: 30 mg - Labs Labs: 09/22/18 13:19 09/22/18 13:19 PT 11.9 Seconds (9.8-13.1) 09/18/18 13:40 INR 1.0 09/18/18 13:40 APTT 36.6 Seconds (25.6-37.1) 09/18/18 13:40
[2018-09-23] MEDS: Lidocaine 5% Patch TD SCH (10:10)
[2018-09-23] MEDS: methIMAzole 5 MG TAB PO SCH (10:12)
--- NOTE | 2018-09-23 23:38 | CP.PCM.PN ---
Subjective - Date & Time of Evaluation Date of Evaluation: 09/22/18 Objective - Vital Signs/Intake and Output Vital Signs (last 24 hours): Temp Pulse Resp BP Pulse Ox 98 F 75 20 105/70 97 09/23/18 17:01 09/23/18 17:01 09/23/18 17:01 09/23/18 17:01 09/23/18 17:01 - Medications Medications: Current Medications Docusate Sodium (Colace) 100 mg PO BID [facility] Last Admin: 09/23/18 17:28 Dose: 100 mg Gabapentin (Neurontin) 300 mg PO TID [facility] Last Admin: 09/23/18 17:28 Dose: 300 mg Heparin Sodium (Porcine) (Heparin) 5,000 units SC Q8 [facility]; Protocol Last Admin: 09/23/18 17:25 Dose: 5,000 units Home Med (Letrozole [Femara]) 2.5 mg PO HS [facility] Last Admin: 09/23/18 21:32 Dose: 2.5 mg Hydromorphone HCl (Dilaudid) 1 mg IVP Q3 PRN PRN Reason: Pain, severe (8-10) Last Admin: 09/23/18 19:50 Dose: 1 mg Lactulose (Enulose) 20 gm PO DAILY PRN PRN Reason: Constipation Last Admin: 09/22/18 16:45 Dose: 20 gm Lidocaine (Lidoderm) 1 ea TD DAILY [facility] Last Admin: 09/23/18 10:10 Dose: 1 ea Methimazole (Tapazole) 2.5 mg PO DAILY [facility] Last Admin: 09/23/18 10:12 Dose: 2.5 mg Morphine Sulfate (Morphine Extended Release Tab) 30 mg PO Q8 [facility] Last Admin: 09/23/18 17:23 Dose: 30 mg - Labs Labs: 09/22/18 13:19 09/22/18 13:19 PT 11.9 Seconds (9.8-13.1) 09/18/18 13:40 INR 1.0 09/18/18 13:40 APTT 36.6 Seconds (25.6-37.1) 09/18/18 13:40 Assessment and Plan (1) Breast cancer Status: Acute (2) Intractable pain Status: Acute (3) Mass of chest wall Status: Acute
[2018-09-24] MEDS: Morphine 30 mg SR Tab PO SCH ×3 (01:09→16:27)
[2018-09-24] MEDS: methIMAzole 5 MG TAB PO SCH (09:55)
[2018-09-24] MEDS: Lidocaine 5% Patch TD SCH (09:56)
--- NOTE | 2018-09-24 11:30 | CP.PCM.PN ---
Subjective - Date & Time of Evaluation Date of Evaluation: 09/24/18 Time of Evaluation: 11:25 - Subjective Subjective: Pt is doing much better today. She had her 3rd dose of RT today. Will probably go home with the medication regimen recommended by the Pain management. Will start with chemotherapy right after Rt is done Objective - Vital Signs/Intake and Output Vital Signs (last 24 hours): Temp Pulse Resp BP Pulse Ox 97.9 F 82 19 125/81 96 09/24/18 07:50 09/24/18 07:50 09/24/18 07:50 09/24/18 07:50 09/24/18 07:50 - Medications Medications: Current Medications Docusate Sodium (Colace) 100 mg PO BID [facility] Last Admin: 09/24/18 09:56 Dose: 100 mg Gabapentin (Neurontin) 300 mg PO TID [facility] Last Admin: 09/24/18 09:56 Dose: 300 mg Heparin Sodium (Porcine) (Heparin) 5,000 units SC Q8 [facility]; Protocol Last Admin: 09/24/18 09:55 Dose: 5,000 units Home Med (Letrozole [Femara]) 2.5 mg PO HS [facility] Last Admin: 09/23/18 21:32 Dose: 2.5 mg Hydromorphone HCl (Dilaudid) 1 mg IVP Q3 PRN PRN Reason: Pain, severe (8-10) Last Admin: 09/24/18 07:18 Dose: 1 mg Lactulose (Enulose) 20 gm PO DAILY PRN PRN Reason: Constipation Last Admin: 09/22/18 16:45 Dose: 20 gm Lidocaine (Lidoderm) 1 ea TD DAILY [facility] Last Admin: 09/24/18 09:56 Dose: 1 ea Methimazole (Tapazole) 2.5 mg PO DAILY [facility] Last Admin: 09/24/18 09:55 Dose: 2.5 mg Morphine Sulfate (Morphine Extended Release Tab) 30 mg PO Q8 [facility] Last Admin: 09/24/18 10:08 Dose: 30 mg - Labs Labs: 09/22/18 13:19 09/22/18 13:19 PT 11.9 Seconds (9.8-13.1) 09/18/18 13:40 INR 1.0 09/18/18 13:40 APTT 36.6 Seconds (25.6-37.1) 09/18/18 13:40
--- NOTE | 2018-09-24 14:08 | CP.PCM.PCO ---
Assessment/Plan - Assessment/Plan Assessment (Free Text): Pt stable, seen and cleared for d/c home today by all consultants and Dr. Kumar. Spoke with Carleen at [facility], pt is scheduled for radiation therapy through 10/03/18. Per Carleen, upon discharge, pt has to go in person to the [facility] office at [place] to file the application. Spoke to pt and pt's daughter who are aware of this and will go to the [facility] office tomorrow. Pt's daughter states she will transport pt to [facility] tomorrow as she will be taking her to the [facility] office. [facility] to arrange for pt's transportation after tomorrow. Pt and daughter aware of discharge plan. Meds as per med rec. Rx given Pt to f/u with Dr. Goodman as outpatient.
[2018-09-24 16:16] VITALS: BP 107/70; PULSE 73; RESP 20; TEMP 98.2; O2SAT 97
--- NOTE | 2018-09-26 02:10 | CP.PCM.DIS ---
Provider - Provider Date of Admission: 09/18/18 16:55 Attending physician: Jocelynn Kumar MD Consults: 09/18/18 16:56 Anesthesiology Consult Stat Comment: Consulting Provider: Jaime Cheung Consulting Physician: Jaime Cheung Reason for Consult: intractable pain 09/18/18 18:01 Hematology Oncology Consult Stat Comment: Consulting Provider: Randi Goodman Consulting Physician: Randi Goodman Reason for Consult: intractable pain, breasst cancer Time Spent in preparation of Discharge (in minutes): 25 Diagnosis - Discharge Diagnosis (1) Breast cancer Status: Acute Priority: High (2) Intractable pain Status: Acute Priority: High (3) Mass of chest wall Status: Acute Priority: High Hospital Course - Lab Results Lab Results: Most Recent Lab Values WBC 7.0 K/uL (4.8-10.8) 09/22/18 13:19 RBC 4.10 Mil/uL (3.80-5.20) 09/22/18 13:19 Hgb 11.4 g/dL (12.0-16.0) L 09/22/18 13:19 Hct 35.0 % (34.0-47.0) 09/22/18 13:19 MCV 85.3 fl (81.0-99.0) 09/22/18 13:19 MCH 27.8 pg (27.0-31.0) 09/22/18 13:19 MCHC 32.5 g/dL (33.0-37.0) L 09/22/18 13:19 RDW 14.0 % (11.5-14.5) 09/22/18 13:19 Plt Count 281 K/uL (130-400) 09/22/18 13:19 MPV 8.2 fl (7.2-11.7) 09/18/18 13:40 Neut % (Auto) 77.9 % (50.0-75.0) H 09/18/18 13:40 Lymph % (Auto) 18.0 % (20.0-40.0) L 09/18/18 13:40 [place] % (Auto) 3.4 % (0.0-10.0) 09/18/18 13:40 Eos % (Auto) 0.1 % (0.0-4.0) 09/18/18 13:40 Baso % (Auto) 0.6 % (0.0-2.0) 09/18/18 13:40 Neut # (Auto) 5.2 K/uL (1.8-7.0) 09/18/18 13:40 Lymph # (Auto) 1.2 K/uL (1.0-4.3) 09/18/18 13:40 [place] # (Auto) 0.2 K/uL (0.0-0.8) 09/18/18 13:40 Eos # (Auto) 0.0 K/uL (0.0-0.7) 09/18/18 13:40 Baso # (Auto) 0.0 K/uL (0.0-0.2) 09/18/18 13:40 PT 11.9 Seconds (9.8-13.1) 09/18/18 13:40 INR 1.0 09/18/18 13:40 APTT 36.6 Seconds (25.6-37.1) 09/18/18 13:40 Sodium 138 mmol/l (132-148) 09/22/18 13:19 Potassium 4.2 MMOL/L (3.6-5.0) 09/22/18 13:19 Chloride 99 mmol/L (98-107) 09/22/18 13:19 Carbon Dioxide 31 mmol/L (22-30) H 09/22/18 13:19 Anion Gap 12 (10-20) 09/22/18 13:19 BUN 13 mg/dl (7-17) 09/22/18 13:19 Creatinine 0.9 mg/dl (0.7-1.2) 09/22/18 13:19 Est GFR ( Amer) > 60 09/22/18 13:19 Est GFR (Non-Af Amer) > 60 09/22/18 13:19 Random Glucose 114 mg/dL (65-105) H 09/22/18 13:19 Calcium 9.8 mg/dL (8.4-10.2) 09/22/18 13:19 Total Bilirubin 0.4 mg/dl (0.2-1.3) 09/18/18 13:40 AST 32 U/L (14-36) 09/18/18 13:40 ALT 24 U/L (9-52) 09/18/18 13:40 Alkaline Phosphatase 136 U/L (38-126) H D 09/18/18 13:40 Troponin I < 0.0120 ng/mL (0.00-0.120) 09/18/18 13:40 Total Protein 8.3 G/DL (6.3-8.2) H 09/18/18 13:40 Albumin 4.7 g/dL (3.5-5.0) 09/18/18 13:40 Globulin 3.7 gm/dL (2.2-3.9) 09/18/18 13:40 Albumin/Globulin Ratio 1.3 (1.0-2.1) 09/18/18 13:40 Discharge Exam - Head Exam Head Exam: ATRAUMATIC, NORMAL INSPECTION, NORMOCEPHALIC Discharge Plan - Discharge Medications Prescriptions: Docusate [Colace] 100 mg PO BID #60 cap Morphine [Morphine Sulfate] 30 mg PO Q6 #20 tab Morphine Sulfate [Ms Contin] 30 mg PO Q12 #10 tablet.er Gabapentin [Neurontin] 300 mg PO TID #90 cap - Follow Up Plan Condition: FAIR Disposition: HOME/ ROUTINE Instructions: Chest Pain, Radiation Therapy, External, Acute Pain, Adult (DC) Additional Instructions: hacer bettie con Dra. Goodman 1-2 semanas [facility] para radiacion lunes-viernes, [facility] para hacer areglos para transportacion. Referrals: Randi Goodman MD [Staff Provider] -
== END 2018-09-24 19:04 | disposition home or self-care (01) | DRG 861 ==
LOC: H.ER 12:07 → H.ERHOLD 16:55 → H.MEDSURG1 18:33
PROVIDERS: ADMIT Internal Medicine; ATTEND Internal Medicine
DX: G89.3 Neoplasm related pain (acute) (chronic) (principal); C79.89 Secondary malignant neoplasm of other specified sites; E78.5 Hyperlipidemia, unspecified; Z85.3 Personal history of malignant neoplasm of breast; Z90.11 Acquired absence of right breast and nipple; E78.00 Pure hypercholesterolemia, unspecified; Z87.891 Personal history of nicotine dependence; E05.90 Thyrotoxicosis, unspecified without thyrotoxic crisis or storm

== ENCOUNTER 2018-10-22 15:31 | Observation (INO) | payer OTHER, SELFPAY ==
[2018-10-22 15:31] VITALS: BMI 28.5
--- NOTE | 2018-10-22 16:12 | ED PDOC ---
HPI: SOB/CHF/COPD Time Seen by Provider: 10/22/18 16:01 Chief Complaint (Nursing): Shortness Of Breath Chief Complaint (Provider): SOB, R arm pain History Per: Patient History/Exam Limitations: no limitations Additional Complaint(s): Pt reports SOB X 3 weeks, was evaluated at this hospital at that time, no change. Also c/o R arm pain which was also present 3 weeks ago. Pt finished radiation therapy 2 weeks ago for metastatic breast CA and will start chemotherapy next week. Taking Morphine at home for pain. States she vomited this AM, no abdominal pain, no diarrhea. Past Medical History Reviewed: Nursing Documentation, Vital Signs Vital Signs: Last Vital Signs Temp 98.8 F 10/22/18 15:40 Pulse 97 H 10/22/18 15:40 Resp 16 10/22/18 15:40 BP 149/89 10/22/18 15:40 Pulse Ox 97 10/22/18 15:40 - Medical History PMH: Hypercholesterolemia, Hyperlipidemia, Hyperthyroidism, Malignancy (breast cancer, diagnosed 2012) Denies: HIV, Chronic Kidney Disease - Family History Family History: States: Unknown Family Hx - Living Arrangements Living Arrangements: With Family - Social History Current smoker - smoking cessation education provided: No Alcohol: None - Home Medications Home Medications: Ambulatory Orders Medication Instructions Recorded Letrozole [Femara] 2.5 mg PO DAILY 09/02/18 methIMAzole [Tapazole] 2.5 mg PO DAILY 09/18/18 Docusate [Colace] 100 mg PO BID #60 cap 09/24/18 Gabapentin [Neurontin] 300 mg PO TID #90 cap 09/24/18 Morphine Sulfate [Ms Contin] 30 mg PO Q12 #10 tablet.er 09/24/18 Morphine [Morphine Immediate 30 mg PO Q6 #20 tab 09/24/18 Release Tab] - Allergies Allergies/Adverse Reactions: Allergies Allergy/AdvReac Type Severity Reaction Status Date / Time No Known Allergies Allergy Verified 09/18/18 12:40 Review of Systems Constitutional: Negative for: Fever, Chills Cardiovascular: Negative for: Chest Pain, Palpitations Gastrointestinal: Positive for: Nausea, Vomiting. Negative for: Abdominal Pain, Diarrhea Genitourinary Female: Negative for: Dysuria, Hematuria Skin: Negative for: Rash, Lesions Neurological: Negative for: Headache, Dizziness Physical Exam - Reviewed Nursing Documentation Reviewed: Yes Vital Signs Reviewed: Yes - Physical Exam Appears: Positive for: Well, No Acute Distress Head Exam: Positive for: ATRAUMATIC, NORMAL INSPECTION Skin: Positive for: Normal Color, Warm, Dry Eye Exam: Positive for: Normal appearance, EOMI, PERRL Cardiovascular/Chest: Positive for: Regular Rate, Rhythm Respiratory: Positive for: Normal Breath Sounds. Negative for: Rales, Rhonchi, Wheezing Gastrointestinal/Abdominal: Positive for: Normal Exam, Bowel Sounds, Soft. Negative for: Tenderness Back: Positive for: Normal Inspection Extremity: Positive for: Normal ROM, Capillary Refill (<2 sec). Negative for: Tenderness, Deformity, Swelling Neurological/Psych: Positive for: Awake, Alert, Oriented - Laboratory Results Result Diagrams: 10/22/18 16:53 10/22/18 16:53 - ECG O2 Sat by Pulse Oximetry: 97 Medical Decision Making Medical Decision Makin yo female with SOB and R arm pain. - labs - EKG - CXR - Morphine Accession No. : [id number] Patient Name / ID : HERMAN COUCH / [id number] Exam Date : 10/22/2018 16:58:46 ( Approved ) Study Comment : Sex / Age : F / 58Y Creator : geetha westfall Dictator : Giselle Martinez Ceo [place] : Gas Tender : Giselle Martinez Approver2 : Report Date : 10/22/2018 17:16:00 My Comment : Date of service: 10/22/2018 HISTORY: SOB COMPARISON: 10/06/2018 TECHNIQUE: Chest PA and lateral views FINDINGS: LUNGS: The right inferolateral pleural effusion +/-thickening an inferred fluid in the lateral right minor fissure is renoted. Surgical changes project over the right mid hemithorax as before. Vague increased low-density opacity over the inferior right hemithorax compatible with concomitant atelectasis and or infiltrate. No dense consolidation here at this mid lung zone-there is greater consolidation suggested however at the right lung base inferred with the mostly compressive atelectasis associated with right pleural effusion. PLEURA: No pneumothorax seen. Right pleural effusion believed further increased compared with the prior exam. CARDIOVASCULAR: There is presence of aortic atherosclerotic calcification on x-ray. Mild cardiomegaly-similar. No significant or acute findings to account for/ related to the clinical presentation. OSSEOUS STRUCTURES: Rightward thoracolumbar convexity spondylosis. VISUALIZED UPPER ABDOMEN: Normal. OTHER FINDINGS: None. IMPRESSION: Interval increased right inferolateral pleural effusion with passive compressive atelectasis at the right lung base. The amount of fluid and the vague increased opacity-atelectasis/low-density amorphous coalescent patchy infiltrates have progressed since the prior exam. No interval pathology left lung noted. Other findings as above. 18:[address] Quiñones, admit to tele. Disposition - Clinical Impression Clinical Impression: Pleural effusion, Compressive atelectasis - Patient ED Disposition Is Patient to be Admitted: Yes - Disposition Disposition Time: 18:46 Condition: STABLE Forms: [employer] (Polish) - Pt Status Changed To: Hospital Disposition Of: Inpatient - Admit Certification Admit to Inpatient:: After my assessment, the patient will require h ospitalization for at least two midnights. This is because of the severity of symptoms shown, intensity of services needed, and/or the medical risk in this patient being treated as an outpatient. - POA Present On Arrival: None
[2018-10-22 16:58] LABS: BASO % 0.8 % (0.0-2.0); EOS % 0.3 % (0.0-4.0); HEMOGLOBIN 12.6 g/dL (12.0-16.0); LYMPH # 0.9 K/uL (1.0-4.3); LYMPH % 16.4 % (20.0-40.0); MEAN CELL VOLUME 85.8 fl (81.0-99.0); MEAN CORPUSCULAR HEMOGLOBIN 28.2 pg (27.0-31.0); MEAN CORPUSCULAR HGB CONC 32.9 g/dL (33.0-37.0); MEAN PLATELET VOLUME 7.7 fl (7.2-11.7); MONO # 0.3 K/uL (0.0-0.8); MONO % 5.4 % (0.0-10.0); NEUT # 4.2 K/uL (1.8-7.0); NEUT % 77.1 % (50.0-75.0); NRBC % 0.2 % (0.0-0.0); RBC 4.45 Mil/uL (3.80-5.20); RED CELL DISTRIBUTION WIDTH 14.5 % (11.5-14.5); WHITE BLOOD COUNT 5.5 K/uL (4.8-10.8)
[2018-10-22 17:15] LABS: ALB/GLOB RATIO 1.2 (1.0-2.1); ALBUMIN 4.2 g/dL (3.5-5.0); ALT/SGPT 68 U/L (9-52); AST/SGOT 65 U/L (14-36); BLOOD UREA NITROGEN 11 mg/dl (7-17); CALCIUM 9.4 mg/dL (8.4-10.2); GFR NON-AFRICAN AMERICAN > 60
--- NOTE | 2018-10-22 17:42 | RAD ---
Date of service: 10/22/2018 HISTORY: SOB COMPARISON: 10/06/2018 TECHNIQUE: Chest PA and lateral views FINDINGS: LUNGS: The right inferolateral pleural effusion +/-thickening an inferred fluid in the lateral right minor fissure is renoted. Surgical changes project over the right mid hemithorax as before. Vague increased low-density opacity over the inferior right hemithorax compatible with concomitant atelectasis and or infiltrate. No dense consolidation here at this mid lung zone-there is greater consolidation suggested however at the right lung base inferred with the mostly compressive atelectasis associated with right pleural effusion. PLEURA: No pneumothorax seen. Right pleural effusion believed further increased compared with the prior exam. CARDIOVASCULAR: There is presence of aortic atherosclerotic calcification on x-ray. Mild cardiomegaly-similar. No significant or acute findings to account for/ related to the clinical presentation. OSSEOUS STRUCTURES: Rightward thoracolumbar convexity spondylosis. VISUALIZED UPPER ABDOMEN: Normal. OTHER FINDINGS: None. IMPRESSION: Interval increased right inferolateral pleural effusion with passive compressive atelectasis at the right lung base. The amount of fluid and the vague increased opacity-atelectasis/low-density amorphous coalescent patchy infiltrates have progressed since the prior exam. No interval pathology left lung noted. Other findings as above.
[2018-10-22] MEDS ORDERED: Sodium Chloride 0.9% 50 ML IV ONE (18:41)
[2018-10-22] MEDS ORDERED: Iodixanol 320 MG/ML 100 ML BOTTLE IV ONE (18:52)
[2018-10-22] MEDS ORDERED: Enoxaparin 80 mg Syringe SC STA (19:34)
[2018-10-22] MEDS ORDERED: Morphine 30 mg Immediate Release Tab PO PRN (22:23)
[2018-10-23 07:06] LABS: ALB/GLOB RATIO 1.2 (1.0-2.1); ALBUMIN 4.4 g/dL (3.5-5.0); ALT/SGPT 61 U/L (9-52); AST/SGOT 61 U/L (14-36); BLOOD UREA NITROGEN 11 mg/dl (7-17); CALCIUM 9.7 mg/dL (8.4-10.2); GFR NON-AFRICAN AMERICAN > 60; HDL CHOLESTEROL 60 MG/DL (30-70)
[2018-10-23 07:09] LABS: BASO % 0.4 % (0.0-2.0); HEMOGLOBIN 13.1 g/dL (12.0-16.0); LYMPH # 1.3 K/uL (1.0-4.3); LYMPH % 17.6 % (20.0-40.0); MEAN CELL VOLUME 86.1 fl (81.0-99.0); MEAN CORPUSCULAR HEMOGLOBIN 27.8 pg (27.0-31.0); MEAN CORPUSCULAR HGB CONC 32.3 g/dL (33.0-37.0); MEAN PLATELET VOLUME 8.1 fl (7.2-11.7); MONO # 0.4 K/uL (0.0-0.8); MONO % 5.8 % (0.0-10.0); NEUT # 5.8 K/uL (1.8-7.0); NEUT % 76.2 % (50.0-75.0); NRBC % 0.1 % (0.0-0.0); RBC 4.72 Mil/uL (3.80-5.20); RED CELL DISTRIBUTION WIDTH 14.7 % (11.5-14.5); WHITE BLOOD COUNT 7.6 K/uL (4.8-10.8)
[2018-10-23 07:16] LABS: LDL CHOLESTEROL 127 mg/dL (0-129)
--- NOTE | 2018-10-23 08:07 | CARD ---
APPROVED REPORT Date of service: 10/23/2018 EKG Measurement Heart [id number] DC [id number] <Conclusion> Normal sinus rhythm Nonspecific T wave abnormality Abnormal ECG
--- NOTE | 2018-10-23 08:14 | CARD ---
APPROVED REPORT Date of service: 10/22/2018 EKG Measurement Heart [id number] <Conclusion> Normal sinus rhythm Normal ECG
[2018-10-23] MEDS: methIMAzole 5 MG TAB PO SCH (09:31)
--- NOTE | 2018-10-23 09:45 | CP.PCM.CON ---
History of Present Illness - History of Present Illness History of Present Illness: Guerrero is a 58 yrs old female who was diagnosed to have a breast ancer about 6 yrs ago. the tumor was ER VA positive but HER2 negatine.negative as far as the hormonal markers were concerned. She was given chemotherapy and did well for 4 yrs. she would occasionally show up at [facility] for pancreatitis. She did however regularly come to the office for regular follow ups . he then present to the hospital with right arm swelling and ,axillary adenopathy, and intractable pain. It was decided to give her RT for the pain relief and she has done well as far as her pain goes/She was to start her chemotherapy on Saturday but got admitted with shortness of breath the CT scan done in the er showed a significant pleural effusion Pain is better. Past Patient History - Past Medical History & Family History Past Medical History?: Yes - Past Social History Smoking Status: Never Smoked - CARDIAC Hx Hypercholesterolemia: Yes - PULMONARY Hx Respiratory Disorders: No - NEUROLOGICAL Hx Neurological Disorder: No - HEENT Hx HEENT Problems: No - RENAL Hx Chronic Kidney Disease: No - ENDOCRINE/METABOLIC Hx Hyperthyroidism: Yes - HEMATOLOGICAL/ONCOLOGICAL Hx AIDS: No Hx Human Immunodeficiency Virus (HIV): No - INTEGUMENTARY Hx Dermatological Problems: No - MUSCULOSKELETAL/RHEUMATOLOGICAL Hx Falls: No - GASTROINTESTINAL Hx Gastrointestinal Disorders: No - GENITOURINARY/GYNECOLOGICAL Hx Genitourinary Disorders: No - PSYCHIATRIC Hx Substance Use: No - SURGICAL HISTORY Hx Surgeries: Yes Hx Liver Transplant: No Hx Mastectomy: Yes (right total mastectomy with axillary dissection) Hx Tubal Ligation: Yes Hx Vascular Access Device: Yes (chemoport) - ANESTHESIA Hx Anesthesia: Yes Hx Anesthesia Reactions: No Hx Malignant Hyperthermia: No Meds Allergies/Adverse Reactions: Allergies Allergy/AdvReac Type Severity Reaction Status Date / Time No Known Allergies Allergy Verified 09/18/18 12:40 - Medications Medications: Current Medications Docusate Sodium (Colace) 100 mg PO BID [facility] Last Admin: 10/23/18 09:31 Dose: 100 mg Gabapentin (Neurontin) 300 mg PO TID [facility] Last Admin: 10/23/18 09:31 Dose: 300 mg Methimazole (Tapazole) 2.5 mg PO DAILY [facility] Last Admin: 10/23/18 09:31 Dose: 2.5 mg Morphine Sulfate (Morphine) 2 mg IVP Q4 PRN PRN Reason: Pain, severe (8-10) Morphine Sulfate (Morphine Immediate Release Tab) 30 mg PO Q6 PRN PRN Reason: Pain, moderate (4-7) Physical Exam - Additional Findings Additional findings: Physical exam; alert, well oriented in mild resp distress neck; supple, no adenopathy Chest. Decreased air entry right loer lung field, Heart; RSR, no murmur Abd; soft, no mass no h/e megaly Results - Vital Signs Recent Vital Signs: Last Vital Signs Temp 98.2 F 10/23/18 08:02 Pulse 86 10/23/18 08:02 Resp 20 10/23/18 08:02 BP 152/96 H 10/23/18 08:02 Pulse Ox 96 10/23/18 08:02 - Labs Result Diagrams: 10/23/18 06:05 10/23/18 06:05 Labs: Laboratory Results - last 24 hr 10/22/18 10/22/18 10/23/18 16:53 16:53 06:05 WBC 5.5 RBC 4.45 Hgb 12.6 Hct 38.2 MCV 85.8 MCH 28.2 MCHC 32.9 L RDW 14.5 Plt Count 282 MPV 7.7 Neut % (Auto) 77.1 H Lymph % (Auto) 16.4 L [place] % (Auto) 5.4 Eos % (Auto) 0.3 Baso % (Auto) 0.8 Neut # (Auto) 4.2 Lymph # (Auto) 0.9 L [place] # (Auto) 0.3 Eos # (Auto) 0.0 Baso # (Auto) 0.0 Sodium 138 141 Potassium 4.1 4.3 Chloride 104 105 Carbon Dioxide 26 23 Anion Gap 12 17 BUN 11 11 Creatinine 0.7 0.6 L Est GFR ( Amer) > 60 > 60 Est GFR (Non-Af Amer) > 60 > 60 Random Glucose 95 99 Calcium 9.4 9.7 Phosphorus 3.9 Magnesium 2.3 Total Bilirubin 0.6 0.7 AST 65 H D 61 H ALT 68 H D 61 H Alkaline Phosphatase 129 H 138 H Total Protein 7.6 8.1 Albumin 4.2 4.4 Globulin 3.5 3.7 Albumin/Globulin Ratio 1.2 1.2 Triglycerides 71 Cholesterol 243 H LDL Cholesterol Direct 127 HDL Cholesterol 60 Free T4 TSH 3rd Generation 0.31 L 10/23/18 10/23/18 06:05 06:05 WBC 7.6 RBC 4.72 Hgb 13.1 Hct 40.6 MCV 86.1 MCH 27.8 MCHC 32.3 L RDW 14.7 H Plt Count 300 MPV 8.1 Neut % (Auto) 76.2 H Lymph % (Auto) 17.6 L [place] % (Auto) 5.8 Eos % (Auto) 0.0 Baso % (Auto) 0.4 Neut # (Auto) 5.8 Lymph # (Auto) 1.3 [place] # (Auto) 0.4 Eos # (Auto) 0.0 Baso # (Auto) 0.0 Sodium Potassium Chloride Carbon Dioxide Anion Gap BUN Creatinine Est GFR ( Amer) Est GFR (Non-Af Amer) Random Glucose Calcium Phosphorus Magnesium Total Bilirubin AST ALT Alkaline Phosphatase Total Protein Albumin Globulin Albumin/Globulin Ratio Triglycerides Cholesterol LDL Cholesterol Direct HDL Cholesterol Free T4 1.71 TSH 3rd Generation Assessment & Plan - Assessment and Plan (Free Text) Assessment: Impression' Metastatic breast cancer Pleural effusion Plan: Plan; suggest a palliative thoracentesis. Will receive chemotherapy on saturday - Date & Time Date: 10/23/18 Time: 10:04
--- NOTE | 2018-10-23 10:22 | CT ---
Date of service: 10/22/2018 PROCEDURE: CT Chest with contrast (Pulmonary Angiogram) HISTORY: RLL opacity COMPARISON: D. In in in 2 to due to December due to in due to TECHNIQUE: Axial computed tomography images were obtained of the chest in the pulmonary arterial phase of enhancement. Coronal and sagittal reformatted images were created and reviewed. Intravenous contrast dose: 65 mL Visipaque 320 Radiation dose: Total exam DLP = 325.71 mGy-cm. This CT exam was performed using one or more of the following dose reduction techniques: Automated exposure control, adjustment of the mA and/or kV according to patient size, and/or use of iterative reconstruction technique. FINDINGS: PULMONARY ARTERIES: Unremarkable. No pulmonary embolism. AORTA: No acute findings. No thoracic aortic aneurysm. No aortic atherosclerotic calcification or mural plaque present. LUNGS: Multiple small nodules and vaguely nodular opacities bilaterally. These measure up to 11 mm in greatest dimension, seen in the lingual segment of the left upper lobe. There is an 11 mm nodule in the anterior basal segment of the left lower lobe. 10 mm nodule left lower lobe. Multiple additional smaller circumscribed and poorly circumscribed nodules are seen bilaterally. Possible metastatic disease or infectious/inflammatory etiology. Subsegmental atelectasis right lower lobe. PLEURAL SPACES: Moderate right pleural effusion. No left pleural effusion. No pneumothorax. HEART: Unremarkable. No cardiomegaly. No significant pericardial effusion. LYMPH NODES: Subcarinal and right hilar lymphadenopathy. BONES, CHEST WALL: Unremarkable. No fracture or destructive lesion OTHER FINDINGS: Status post right mastectomy. IMPRESSION: No evidence of pulmonary embolism. Multiple bilateral pulmonary nodules common nonspecific. Rule out neoplastic or infectious/inflammatory etiology. Moderate right pleural effusion. Right lower lobe subsegmental atelectasis. Subcarinal and right hilar lymphadenopathy. The preliminary findings for this examination were reported by [facility] at 8:52 p.m. on 10/22/2018. There is concurrence of this report with the preliminary findings.
[2018-10-23] MEDS ORDERED: Lidocaine Hydrochloride 1% 10 ML ONE (13:35)
--- NOTE | 2018-10-23 13:55 | PCM.SURG1 ---
Surgeon's Initial Post Op Note - Surgeon's Notes Surgeon: Satish Parking Worker: None Type of Anesthesia: Local Pre-Operative Diagnosis: Right pleural effusion. Operative Findings: Right pleural effusion. Post-Operative Diagnosis: Right pleural effusion. Operation Performed: Right thoracentesis Specimen/Specimens Removed: Approx 560cc of clear pale yeloow fluid aspirted. Estimated Blood Loss: EBL {In ML}: 1 Date of Surgery/Procedure: 10/23/18 Time of Surgery/Procedure: 13:40
--- NOTE | 2018-10-23 14:09 | RAD ---
Date of service: 10/23/2018 HISTORY: Right thoracentesis COMPARISON: 10/22/2018 TECHNIQUE: 1 view obtained. FINDINGS: LUNGS: No infiltrate. PLEURA: Probable small right pleural effusion. Thickening or fluid in minor fissure. No pneumothorax. No left pleural effusion. CARDIOVASCULAR: No aortic atherosclerotic calcification present. Normal cardiac size. No pulmonary vascular congestion. OSSEOUS STRUCTURES: No significant abnormalities. VISUALIZED UPPER ABDOMEN: Normal. OTHER FINDINGS: None. IMPRESSION: No pneumothorax status post right thoracentesis. Small right pleural effusion noted.
--- NOTE | 2018-10-23 14:35 | CP.PCM.HP ---
History of Present Illness - History of Present Illness History of Present Illness: CC: SOB. 58 y/o F, Hx of Hypercholesterolemia, Hyperthyroidism, R total Mastectomy 2nd to breast Ca, Tx with radiation until 2 weeks ago, there after, to continue next week with chemo, Hx of axillary dissection 6 yrs ago Tx with chemo x 4 yrs. Pt came to [facility] (formerly [facility]) to be evaluated for moderate SOB that began 3 weeks ago and gradually increasing ,associated to SILVEIRA with no relief. Worsening symptom: C/O of R chest pain, intermittent, aching, moderate intensity 7:10, radiated to R arm x 3 weeks, R arm is swelling and also with axillary adenopathy, Pt took Morphine at home with some relief. Aggravated factor: Movements/exercise. Pt denied: Fever, chills, n/v/d, abdominal pain, urinary symptoms, cough, syncope. dizziness, sick contact, recent travel out of [facility]. Chest CT: No PE. Multiple b/l pulmonary nodules, rule out neoplastic or infectious/inflammatory etiology, moderate R pleural effusion, R lower lobe atelectasis, subcarinal and R hilar Lymphadenopathy. EKG: Normal sinus rhythm. Present on Admission - Present on Admission Any Indicators Present on Admission: No Review of Systems - Constitutional Constitutional: Other (negative) - EENT Eyes: Other (negative) Ears: Other (negative) Nose/Mouth/Throat: Other (negative) - Cardiovascular Cardiovascular: Chest Pain - Respiratory Respiratory: Dyspnea, Dyspnea on Exertion, Chest Congestion - Gastrointestinal Gastrointestinal: Other (negative) - Genitourinary Genitourinary: Other (negative) - Musculoskeletal Musculoskeletal: Back Pain (R arm), Radiating Pain into Limb - Integumentary Integumentary: Other (negative) - Neurological Neurological: Other (negative) - Psychiatric Psychiatric: Other (negative) - Endocrine Endocrine: Other (negative) - Hematologic/Lymphatic Hematologic: As Per HPI Past Patient History - Past Medical History & Family History Past Medical History?: Yes Pertinent Family History: Unknown - Past Social History Smoking Status: Never Smoked Alcohol: None Drugs: Denies Home Situation {Lives}: Alone - CARDIAC Hx Cardiac Disorders: Yes Hx Hypercholesterolemia: Yes - PULMONARY Hx Respiratory Disorders: No - NEUROLOGICAL Hx Neurological Disorder: No - HEENT Hx HEENT Problems: No - RENAL Hx Chronic Kidney Disease: No - ENDOCRINE/METABOLIC Hx Endocrine Disorders: Yes Hx Hyperthyroidism: Yes - HEMATOLOGICAL/ONCOLOGICAL Hx Blood Disorders: Yes Hx AIDS: No Hx Cancer: Yes (breast) Hx Human Immunodeficiency Virus (HIV): No - INTEGUMENTARY Hx Dermatological Problems: No - MUSCULOSKELETAL/RHEUMATOLOGICAL Hx Musculoskeletal Disorders: No Hx Falls: No - GASTROINTESTINAL Hx Gastrointestinal Disorders: No - GENITOURINARY/GYNECOLOGICAL Hx Genitourinary Disorders: No - PSYCHIATRIC Hx Psychophysiologic Disorder: Yes Hx Anxiety: Yes Hx Substance Use: No - SURGICAL HISTORY Hx Surgeries: Yes Hx Liver Transplant: No Hx Mastectomy: Yes (right total mastectomy with axillary dissection) Hx Tubal Ligation: Yes Hx Vascular Access Device: Yes (chemoport) - ANESTHESIA Hx Anesthesia: Yes Hx Anesthesia Reactions: No Hx Malignant Hyperthermia: No Meds Home Medications: Home Medication List Medication Instructions Recorded Confirmed Type Morphine [Morphine Immediate 30 mg PO Q6 #20 tab 10/24/18 Rx Release Tab] Allergies/Adverse Reactions: Allergies Allergy/AdvReac Type Severity Reaction Status Date / Time No Known Allergies Allergy Verified 09/18/18 12:40 Physical Exam - Constitutional Appears: No Acute Distress - Head Exam Head Exam: NORMAL INSPECTION - Eye Exam Eye Exam: PERRL - ENT Exam ENT Exam: Normal Exam - Neck Exam Neck exam: Positive for: Normal Inspection - Respiratory Exam Respiratory Exam: Decreased Breath Sounds (b/l) - Cardiovascular Exam Cardiovascular Exam: REGULAR RHYTHM - GI/Abdominal Exam GI & Abdominal Exam: Normal Bowel Sounds - Extremities Exam Extremities exam: Positive for: normal inspection - Back Exam Back exam: NORMAL INSPECTION - Neurological Exam Neurological exam: Alert, Oriented x3 - Psychiatric Exam Psychiatric exam: Depressed - Skin Skin Exam: Warm Results - Vital Signs Recent Vital Signs: Last Vital Signs Temp 98.4 F 10/23/18 13:20 Pulse 82 10/23/18 13:55 Resp 20 10/23/18 13:55 BP 148/88 10/23/18 13:55 Pulse Ox 99 10/23/18 13:55 reviewed J.PSharyn - Labs Result Diagrams: 10/23/18 06:05 10/23/18 06:05 Labs: Laboratory Results - last 24 hr 10/22/18 10/22/18 10/23/18 16:53 16:53 06:05 WBC 5.5 RBC 4.45 Hgb 12.6 Hct 38.2 MCV 85.8 MCH 28.2 MCHC 32.9 L RDW 14.5 Plt Count 282 MPV 7.7 Neut % (Auto) 77.1 H Lymph % (Auto) 16.4 L [place] % (Auto) 5.4 Eos % (Auto) 0.3 Baso % (Auto) 0.8 Neut # (Auto) 4.2 Lymph # (Auto) 0.9 L [place] # (Auto) 0.3 Eos # (Auto) 0.0 Baso # (Auto) 0.0 Sodium 138 141 Potassium 4.1 4.3 Chloride 104 105 Carbon Dioxide 26 23 Anion Gap 12 17 BUN 11 11 Creatinine 0.7 0.6 L Est GFR ( Amer) > 60 > 60 Est GFR (Non-Af Amer) > 60 > 60 Random Glucose 95 99 Calcium 9.4 9.7 Phosphorus 3.9 Magnesium 2.3 Total Bilirubin 0.6 0.7 AST 65 H D 61 H ALT 68 H D 61 H Alkaline Phosphatase 129 H 138 H Total Protein 7.6 8.1 Albumin 4.2 4.4 Globulin 3.5 3.7 Albumin/Globulin Ratio 1.2 1.2 Triglycerides 71 Cholesterol 243 H LDL Cholesterol Direct 127 HDL Cholesterol 60 Free T4 TSH 3rd Generation 0.31 L 10/23/18 10/23/18 06:05 06:05 WBC 7.6 RBC 4.72 Hgb 13.1 Hct 40.6 MCV 86.1 MCH 27.8 MCHC 32.3 L RDW 14.7 H Plt Count 300 MPV 8.1 Neut % (Auto) 76.2 H Lymph % (Auto) 17.6 L [place] % (Auto) 5.8 Eos % (Auto) 0.0 Baso % (Auto) 0.4 Neut # (Auto) 5.8 Lymph # (Auto) 1.3 [place] # (Auto) 0.4 Eos # (Auto) 0.0 Baso # (Auto) 0.0 Sodium Potassium Chloride Carbon Dioxide Anion Gap BUN Creatinine Est GFR ( Amer) Est GFR (Non-Af Amer) Random Glucose Calcium Phosphorus Magnesium Total Bilirubin AST ALT Alkaline Phosphatase Total Protein Albumin Globulin Albumin/Globulin Ratio Triglycerides Cholesterol LDL Cholesterol Direct HDL Cholesterol Free T4 1.71 TSH 3rd Generation reviewed J.P. - EKG Data EKG comments: reviewed J.P. - Imaging and Cardiology Chest x-ray Status: Report reviewed by me (J.P.) CT scan - chest Status: Report reviewed by me (J.P.) Assessment & Plan (1) Pleural effusion Status: Acute Priority: High (2) SOB (shortness of breath) Status: Acute Comment: 2nd to pleural effusion. (3) Axillary adenopathy Status: Acute Priority: High (4) Chest pain Status: Acute Priority: High (5) Right arm pain Status: Acute Priority: High (6) Breast cancer Status: Acute Priority: High (7) Pulmonary nodules Status: Acute (8) Hypercholesterolemia Status: Chronic Priority: Medium - Assessment and Plan (Free Text) Plan: F/U Echo, continue Morphine, Neurontin, Tapazole and rest of Tx. Hematology consult. For Thoracentesis today - Date & Time Date: 10/23/18 Time: 12:00
[2018-10-23 16:39] LABS: BODY FLUID TYPE PLEURAL/THORACENTESI
[2018-10-23 17:12] LABS: BF GROSS APPEARANCE SL CLOUDY (CLEAR); GLUCOSE,BODY FLUID 104 mg/dL (NONE ESTABLISHED)
[2018-10-23 17:40] LABS: TOTAL PROTEIN,BODY FLUID 4.8 g/dL (NONE ESTABLISHED)
[2018-10-23 18:24] LABS: BODY FLUID MONO/MACROPHAGE 18 % (0-0)
[2018-10-23 18:26] LABS: BODY FLUID TOTAL COUNT 100 (0-0)
--- NOTE | 2018-10-23 18:43 | CARD ---
APPROVED REPORT Date of service: 10/23/2018 EXAM: Two-dimensional and M-mode echocardiogram with Doppler and color Doppler. Other Information Quality : GoodRhythm : NSR INDICATION Pleural Effusion 2D DIMENSIONS IVSd1.11 (0.7-1.1cm)LVDd3.93 (3.9-5.9cm) LVOT Diameter1.91 (1.8-2.4cm)PWd0.78 (0.7-1.1cm) IVSs1.34 (0.8-1.2cm)LVDs2.53 (2.5-4.0cm) FS (%) 35.7 %PWs1.27 (0.8-1.2cm) M-Mode DIMENSIONS Left Atrium (MM)3.22 (2.5-4.0cm)IVSd0.82 (0.7-1.1cm) Aortic Root3.01 (2.2-3.7cm)LVDd4.62 (4.0-5.6cm) Aortic Cusp Exc.1.75 (1.5-2.0cm)PWd0.82 (0.7-1.1cm) IVSs1.18 cmFS (%) 39 % LVDs2.82 (2.0-3.8cm)PWs1.32 cm Aortic Valve AoV Peak Hhiznyyg169.1cm/sAoV VTI17.9cmAO Peak GR.4mmHg LVOT Peak Fcngbomz89.3cm/sLVOT VTI15.46cmAO Mean GR.2mmHg [place] (VMAX)1.34vq5GAH (VTI)1.35cm2 Mitral Valve MV E Ayxbaxuu80.6cm/sMV DECEL [id number] A [place]36.9cm/s MV JVM52fzV/A ratio0.8MVA (PHT)3.21cm2 TDI E/Lateral E'0.0E/Medial E'0.0 LEFT VENTRICLE The left ventricle is normal size. There is normal left ventricular wall thickness. The left ventricular systolic function is normal. The estimated ejection fraction is 55-60% No regional wall motion abnormalities noted.. Transmitral Doppler flow pattern is Grade I-abnormal relaxation pattern. No left ventricle thrombus noted on this study. There is no ventricular septal defect visualized. There is no left ventricular aneurysm. There is no mass noted in the left ventricle. RIGHT VENTRICLE The right ventricle is normal size. There is normal right ventricular wall thickness. The right ventricular systolic function is normal. ATRIA The left atrium size is normal. The right atrium size is normal. The interatrial septum is intact with no evidence for an atrial septal defect. AORTIC VALVE The aortic valve is normal in structure. Mild aortic regurgitation is present. There is no aortic valvular stenosis. There is no aortic valvular vegetation. MITRAL VALVE The mitral valve is normal in structure. There is no evidence of mitral valve prolapse. There is no mitral valve stenosis. There is no mitral valve regurgitation noted. TRICUSPID VALVE The tricuspid valve is normal in structure. There is trace tricuspid valve regurgitation noted. There is no tricuspid valve prolapse or vegetation. There is no tricuspid valve stenosis. PULMONIC VALVE The pulmonary valve is normal in structure. There is no pulmonic valvular regurgitation. There is no pulmonic valvular stenosis. GREAT VESSELS The aortic root is normal in size. The ascending aorta is normal in size. The pulmonary artery is normal. The IVC is normal in size and collapses >50% with inspiration. PERICARDIAL EFFUSION There is no pericardial effusion. There is no pleural effusion. <Conclusion> The estimated ejection fraction is 55-60% Transmitral Doppler flow pattern is Grade I-abnormal relaxation pattern. The left atrium size is normal. Mild aortic regurgitation is present. There is trace tricuspid valve regurgitation noted.
[2018-10-24] MEDS ORDERED: Lactulose 10 gm/15 ml Syrup PO PRN (08:10)
[2018-10-24 08:16] VITALS: RESP 18
--- NOTE | 2018-10-24 08:31 | CP.PCM.PN ---
Subjective - Date & Time of Evaluation Date of Evaluation: 10/24/18 Time of Evaluation: 08:30 - Subjective Subjective: Pt had a thoracentesis yesterday and 500ml of fluid was removed. She feels much better today. Will be discharged,to return next week for chemo Objective - Vital Signs/Intake and Output Vital Signs (last 24 hours): Temp Pulse Resp BP Pulse Ox 98.6 F 77 18 117/79 98 10/24/18 08:15 10/24/18 08:15 10/24/18 08:15 10/24/18 08:15 10/24/18 08:15 - Medications Medications: Current Medications Docusate Sodium (Colace) 100 mg PO BID [facility] Last Admin: 10/23/18 17:23 Dose: 100 mg Gabapentin (Neurontin) 300 mg PO TID [facility] Last Admin: 10/23/18 17:24 Dose: 300 mg Lactulose (Enulose) 10 gm PO DAILY PRN PRN Reason: Constipation Methimazole (Tapazole) 2.5 mg PO DAILY [facility] Last Admin: 10/23/18 09:31 Dose: 2.5 mg Morphine Sulfate (Morphine) 2 mg IVP Q4 PRN PRN Reason: Pain, severe (8-10) Last Admin: 10/24/18 05:00 Dose: 2 mg Morphine Sulfate (Morphine Immediate Release Tab) 30 mg PO Q6 PRN PRN Reason: Pain, moderate (4-7) Last Admin: 10/23/18 12:20 Dose: 30 mg - Labs Labs: 10/23/18 06:05 10/23/18 06:05
[2018-10-24] MEDS: methIMAzole 5 MG TAB PO SCH (09:23)
[2018-10-24 15:54] VITALS: BP 112/75; PULSE 75; TEMP 99; O2SAT 97
--- NOTE | 2018-10-24 17:02 | CP.PCM.PN ---
Objective - Vital Signs/Intake and Output Vital Signs (last 24 hours): Temp Pulse Resp BP Pulse Ox 99.0 F 75 18 112/75 97 10/24/18 15:54 10/24/18 15:54 10/24/18 15:54 10/24/18 15:54 10/24/18 15:54 - Medications Medications: Current Medications Docusate Sodium (Colace) 100 mg PO BID [facility] Last Admin: 10/24/18 09:22 Dose: 100 mg Gabapentin (Neurontin) 300 mg PO TID [facility] Last Admin: 10/24/18 12:44 Dose: 300 mg Lactulose (Enulose) 10 gm PO DAILY PRN PRN Reason: Constipation Methimazole (Tapazole) 2.5 mg PO DAILY [facility] Last Admin: 10/24/18 09:23 Dose: 2.5 mg Morphine Sulfate (Morphine) 2 mg IVP Q4 PRN PRN Reason: Pain, severe (8-10) Last Admin: 10/24/18 12:43 Dose: 2 mg Morphine Sulfate (Morphine Immediate Release Tab) 30 mg PO Q6 PRN PRN Reason: Pain, moderate (4-7) Last Admin: 10/23/18 12:20 Dose: 30 mg - Labs Labs: 10/23/18 06:05 10/23/18 06:05 Assessment and Plan (1) Pleural effusion Status: Acute (2) SOB (shortness of breath) Status: Acute (3) Axillary adenopathy Status: Acute (4) Chest pain Status: Acute (5) Right arm pain Status: Acute (6) Breast cancer Status: Acute (7) Pulmonary nodules Status: Acute (8) Hypercholesterolemia Status: Chronic
--- NOTE | 2018-10-24 19:46 | CP.PCM.DIS ---
Provider - Provider Date of Admission: 10/22/18 18:44 Attending physician: Marvin Quiñones MD Consults: 10/22/18 18:44 Hematology Oncology Consult Stat Comment: Consulting Provider: Randi Goodman Consulting Physician: Randi Goodman Reason for Consult: SOB, pleural effusion Diagnosis - Discharge Diagnosis (1) Pleural effusion Status: Acute Priority: High (2) SOB (shortness of breath) Status: Acute (3) Axillary adenopathy Status: Acute Priority: High (4) Chest pain Status: Acute Priority: High (5) Right arm pain Status: Acute Priority: High (6) Breast cancer Status: Acute Priority: High (7) Pulmonary nodules Status: Acute (8) Hypercholesterolemia Status: Chronic Priority: Medium Hospital Course - Lab Results Lab Results: Micro Results 10/23/18 16:30 Other: Please Indicate Fungal Culture - Preliminary 10/23/18 16:30 Other: Please Indicate Mycobacterial Culture - Preliminary 10/23/18 16:30 Body Fluid - Pleural Fluid Gram Stain - Final 10/23/18 16:30 Body Fluid - Pleural Fluid Body Fluid Culture - Preliminary NO GROWTH AFTER 24 HOURS 10/23/18 16:30 Pleural Fluid Anaerobic Culture - Preliminary No growth. Most Recent Lab Values WBC 7.6 K/uL (4.8-10.8) 10/23/18 06:05 RBC 4.72 Mil/uL (3.80-5.20) 10/23/18 06:05 Hgb 13.1 g/dL (12.0-16.0) 10/23/18 06:05 Hct 40.6 % (34.0-47.0) 10/23/18 06:05 MCV 86.1 fl (81.0-99.0) 10/23/18 06:05 MCH 27.8 pg (27.0-31.0) 10/23/18 06:05 MCHC 32.3 g/dL (33.0-37.0) L 10/23/18 06:05 RDW 14.7 % (11.5-14.5) H 10/23/18 06:05 Plt Count 300 K/uL (130-400) 10/23/18 06:05 MPV 8.1 fl (7.2-11.7) 10/23/18 06:05 Neut % (Auto) 76.2 % (50.0-75.0) H 10/23/18 06:05 Lymph % (Auto) 17.6 % (20.0-40.0) L 10/23/18 06:05 [place] % (Auto) 5.8 % (0.0-10.0) 10/23/18 06:05 Eos % (Auto) 0.0 % (0.0-4.0) 10/23/18 06:05 Baso % (Auto) 0.4 % (0.0-2.0) 10/23/18 06:05 Neut # (Auto) 5.8 K/uL (1.8-7.0) 10/23/18 06:05 Lymph # (Auto) 1.3 K/uL (1.0-4.3) 10/23/18 06:05 [place] # (Auto) 0.4 K/uL (0.0-0.8) 10/23/18 06:05 Eos # (Auto) 0.0 K/uL (0.0-0.7) 10/23/18 06:05 Baso # (Auto) 0.0 K/uL (0.0-0.2) 10/23/18 06:05 Sodium 141 mmol/l (132-148) 10/23/18 06:05 Potassium 4.3 MMOL/L (3.6-5.0) 10/23/18 06:05 Chloride 105 mmol/L (98-107) 10/23/18 06:05 Carbon Dioxide 23 mmol/L (22-30) 10/23/18 06:05 Anion Gap 17 (10-20) 10/23/18 06:05 BUN 11 mg/dl (7-17) 10/23/18 06:05 Creatinine 0.6 mg/dl (0.7-1.2) L 10/23/18 06:05 Est GFR ( Amer) > 60 10/23/18 06:05 Est GFR (Non-Af Amer) > 60 10/23/18 06:05 Random Glucose 99 mg/dL (65-105) 10/23/18 06:05 Calcium 9.7 mg/dL (8.4-10.2) 10/23/18 06:05 Phosphorus 3.9 mg/dl (2.5-4.5) 10/23/18 06:05 Magnesium 2.3 MG/DL (1.6-2.3) 10/23/18 06:05 Total Bilirubin 0.7 mg/dl (0.2-1.3) 10/23/18 06:05 AST 61 U/L (14-36) H 10/23/18 06:05 ALT 61 U/L (9-52) H 10/23/18 06:05 Alkaline Phosphatase 138 U/L (38-126) H 10/23/18 06:05 Total Protein 8.1 G/DL (6.3-8.2) 10/23/18 06:05 Albumin 4.4 g/dL (3.5-5.0) 10/23/18 06:05 Globulin 3.7 gm/dL (2.2-3.9) 10/23/18 06:05 Albumin/Globulin Ratio 1.2 (1.0-2.1) 10/23/18 06:05 Triglycerides 71 mg/DL (0-149) 10/23/18 06:05 Cholesterol 243 mg/dL (0-199) H 10/23/18 06:05 LDL Cholesterol Direct 127 mg/dL (0-129) 10/23/18 06:05 HDL Cholesterol 60 MG/DL (30-70) 10/23/18 06:05 Free T4 1.71 ng/dL (0.78-2.19) 10/23/18 06:05 Free T3 pg/mL 4.45 pg/mL (2.77-5.27) 10/23/18 06:05 TSH 3rd Generation 0.31 mIU/ML (0.46-4.68) L 10/23/18 06:05 Fluid Source Pleural/thoracentesi 10/23/18 16:30 Fluid Appearance Sl cloudy (CLEAR) 10/23/18 16:30 Fluid WBC 1394.0 /mm3 (0.0-300.0) H 10/23/18 16:30 Fluid RBC 1740.0 /mm3 (0.0-0.0) H 10/23/18 16:30 Fluid Tot Cell Count 100 (0-0) H 10/23/18 16:30 Fluid Neutrophils 13.0 % (0-0) H 10/23/18 16:30 Fluid Lymphocytes 69.0 % (0-0) H 10/23/18 16:30 Fld Monocyte/Macrophag 18 % (0-0) H 10/23/18 16:30 Fluid Glucose 104 mg/dL (NONE ESTABLISHED) 10/23/18 16:30 Fluid Total Protein 4.8 g/dL (NONE ESTABLISHED) 10/23/18 16:30 Fluid LDH 4059 IU (NONE ESTABLISHED) 10/23/18 16:30 Fluid Comment [place] 10/23/18 16:30 Discharge Exam - Head Exam Head Exam: NORMAL INSPECTION Discharge Plan - Discharge Medications Prescriptions: Morphine [Morphine Immediate Release Tab] 30 mg PO Q6 #20 tab - Follow Up Plan Condition: STABLE Disposition: HOME/ ROUTINE Instructions: Breast Cancer (DC), Thoracentesis (DC) Referrals: Randi Goodman MD [Staff Provider] -
--- NOTE | 2018-10-30 11:20 | US ---
Procedure: Ultrasound guided thoracentesis. Clinical History: Right-sided pleural effusion. Technique: The relative risks and indications for the procedure were explained to the patient and informed written consent obtained. Sonography of the right chest was performed in a an upright position. This revealed a moderate to large amount of pleural fluid. A puncture site was selected in the posterior lateral aspect of the right chest and the area was prepped and draped in the usual sterile fashion. 1% lidocaine was used to anesthetize the skin and soft tissues. A 5 La[place] centesis catheter was trochared into the right pleural cavity 560 cc of aspirated. The patient tolerated the procedure well. Postprocedure radiograph demonstrated no evidence of pneumothorax and near complete resolution of the previously identified pleural effusion. Impression: Ultrasound-guided thoracentesis of the right pleural cavity. 560 cc of fluid was aspirated.
== END 2018-10-24 17:00 | disposition home or self-care (01) ==
LOC: H.ER 15:31 → H.ERHOLD 18:44 → INTOOBSV 18:44 → H.TEL 22:04
PROVIDERS: ADMIT Internal Medicine Pulmonary Disease; ATTEND Internal Medicine Pulmonary Disease
DX: J90 Pleural effusion, not elsewhere classified (principal); C50.919 Malignant neoplasm of unspecified site of unspecified female breast; C79.9 Secondary malignant neoplasm of unspecified site; J98.11 Atelectasis; E05.90 Thyrotoxicosis, unspecified without thyrotoxic crisis or storm; F41.9 Anxiety disorder, unspecified; R07.89 Other chest pain; E78.00 Pure hypercholesterolemia, unspecified; E78.5 Hyperlipidemia, unspecified; J44.9 Chronic obstructive pulmonary disease, unspecified; Z85.3 Personal history of malignant neoplasm of breast; Z92.3 Personal history of irradiation; Z79.811 Long term (current) use of aromatase inhibitors; Z79.899 Other long term (current) drug therapy
CPT/HCPCS: 32555; 36415; 71045; 71046; 71275; 76942; 80053; 80061; 82945; 83615; 83735; 83986; 84100; 84439; 84443; 84481; 85025; 87015; 87070; 87075; 87101; 87116; 87206; 88173; 89051; 93005; 93306; 96372; 96374; 96375; 96376; 99285; C1729; G0378; J1650; J2270; J2765; Q9967

== ENCOUNTER 2018-10-29 12:25 | Inpatient (IN) | payer OTHER, SELFPAY ==
[2018-10-29 12:30] VITALS: BMI 28.4
[2018-10-29] MEDS ORDERED: Alum-Mag Hydrox-Simethicone Susp (30 mL) PO ONE (13:21)
[2018-10-29] MEDS ORDERED: Albuterol-Ipratrop 3 mg / 0.5 (3 ml) UD INH STA (13:23)
[2018-10-29] MEDS ORDERED: Albuterol-Ipratrop 3 mg / 0.5 (3 ml) UD ONE (13:42)
[2018-10-29] MEDS ORDERED: Alum-Mag Hydrox-Simethicone Susp (30 mL) ONE (13:42)
[2018-10-29 13:55] LABS: ALB/GLOB RATIO 1.2 (1.0-2.1); ALBUMIN 4.6 g/dL (3.5-5.0); ALT/SGPT 81 U/L (9-52); AST/SGOT 96 U/L (14-36); BLOOD UREA NITROGEN 9 mg/dl (7-17); CALCIUM 9.9 mg/dL (8.4-10.2); GFR NON-AFRICAN AMERICAN > 60; LIPASE 114 U/L (23-300)
[2018-10-29 14:19] LABS: BASO % 0.4 % (0.0-2.0); EOS % 0.1 % (0.0-4.0); HEMOGLOBIN 13.3 g/dL (12.0-16.0); LYMPH # 0.9 K/uL (1.0-4.3); LYMPH % 12.7 % (20.0-40.0); MEAN CORPUSCULAR HEMOGLOBIN 27.6 pg (27.0-31.0); MEAN CORPUSCULAR HGB CONC 32.1 g/dL (33.0-37.0); MEAN PLATELET VOLUME 8.3 fl (7.2-11.7); MONO # 0.3 K/uL (0.0-0.8); MONO % 4.5 % (0.0-10.0); NEUT # 5.5 K/uL (1.8-7.0); NEUT % 82.3 % (50.0-75.0); RBC 4.82 Mil/uL (3.80-5.20); RED CELL DISTRIBUTION WIDTH 14.4 % (11.5-14.5); WHITE BLOOD COUNT 6.7 K/uL (4.8-10.8)
--- NOTE | 2018-10-29 14:56 | RAD ---
Date of service: 10/29/2018 HISTORY: Cough and shortness of breath COMPARISON: 10/23/2018. TECHNIQUE: Chest PA and lateral FINDINGS: LINES AND TUBES: None. LUNG AND PLEURA: There are low lung volumes. There is discoid atelectasis in the right mid lung. There is interval development of airspace disease in the right lower lobe persistent small right pleural effusion. HEART AND MEDIASTINUM: The heart is not enlarged. There are aortic atherosclerotic calcifications present. The hilar and mediastinal contours are within normal limits. SKELETAL STRUCTURES: The bony structures are within normal limits for the patient's age. VISUALIZED UPPER ABDOMEN: Normal. OTHER FINDINGS: There are multiple surgical clips in the right axilla. IMPRESSION: Worsening presumable right lower lobe pneumonia. Interval development of discoid atelectasis in the right mid lung. Small right pleural effusion. Follow-up after medical management is recommended to ensure complete resolution.
[2018-10-29] MEDS ORDERED: Iohexol 240 (50 ml) PO STA (15:12)
[2018-10-29] MEDS ORDERED: Piperacillin/Tazobact 3.375 GM in Sodium Chloride 0.9% 100 ML IVPB STA (15:13)
[2018-10-29] MEDS ORDERED: Iohexol 240 (50 ml) ONE (15:26)
[2018-10-29] MEDS ORDERED: Piperacillin/Tazobact 3.375 gm Inj IVPB ONE (15:27)
--- NOTE | 2018-10-29 15:41 | ED PDOC ---
HPI:Nausea, Vomiting, Diarrhea Time Seen by Provider: 10/29/18 12:42 Chief Complaint (Nursing): Back Pain Chief Complaint (Provider): nausea, abd pain, back pain History Per: Patient History/Exam Limitations: no limitations Additional Complaint(s): 58 y/o F with recurrent metastatic breast Ca on Letrozole s/p radiation awaiting chemo, HL who presents with nausea, abdominal pain and back pain. Pt states that she began having nausea this morning and has had 3 BMs last of which was watery. She also developed lower abdominal pain over the past couple of days and states that the pain is unbearable. Denies fever, chills, night sweats, vomiting. Further admits to feeling a little SOB and having diffuse back pain but ran out of her MS Contin 3 days ago. Denies recent travel outside of [place]. Pt recently admitted for Right sided pleural effusion s/p palliative Right thoracentesis with removal of 560cc of fluid on 10/23/18. Patient was due to start chemotherapy but has been awaiting insurance approval. She further admits to having pain all over her back. Past Medical History Reviewed: Historical Data, Nursing Documentation, Vital Signs Vital Signs: Last Vital Signs Temp 98.8 F 10/29/18 12:29 Pulse 87 10/29/18 12:29 Resp 20 10/29/18 12:29 BP 149/93 H 10/29/18 12:29 Pulse Ox 100 10/29/18 12:29 - Medical History PMH: Anxiety, Hypercholesterolemia, Hyperlipidemia, Hyperthyroidism, Malignancy (breast cancer, diagnosed 2012) Denies: HIV, Chronic Kidney Disease - Family History Family History: States: Unknown Family Hx - Home Medications Home Medications: Ambulatory Orders Medication Instructions Recorded Letrozole [Femara] 2.5 mg PO DAILY 09/02/18 methIMAzole [Tapazole] 2.5 mg PO DAILY 09/18/18 Docusate [Colace] 100 mg PO BID #60 cap 09/24/18 Morphine [Morphine Extended 15 mg PO Q12 10/29/18 Release Tab] Morphine [Morphine Immediate 30 mg PO Q6 PRN 10/29/18 Release Tab] - Allergies Allergies/Adverse Reactions: Allergies Allergy/AdvReac Type Severity Reaction Status Date / Time No Known Allergies Allergy Verified 09/18/18 12:40 Review of Systems Constitutional: Negative for: Fever, Chills Gastrointestinal: Positive for: Nausea, Abdominal Pain, Diarrhea. Negative for: Vomiting Physical Exam - Reviewed Nursing Documentation Reviewed: Yes Vital Signs Reviewed: Yes - Physical Exam Appears: Positive for: Uncomfortable Skin: Positive for: Normal Color Cardiovascular/Chest: Positive for: Regular Rate, Rhythm Respiratory: Positive for: Wheezing (intermittent wheezing B/L, R > L). Negative for: Crackles Gastrointestinal/Abdominal: Positive for: Soft, Tenderness (RUQ, epigastrium, LUQ), Guarding. Negative for: Mass, Distended, Rebound - Laboratory Results Result Diagrams: 10/29/18 13:25 10/29/18 13:25 Lab Results: Total Bilirubin 0.8 mg/dl (0.2-1.3) 10/29/18 13:25 AST 96 U/L (14-36) H D 10/29/18 13:25 ALT 81 U/L (9-52) H D 10/29/18 13:25 Alkaline Phosphatase 155 U/L (38-126) H 10/29/18 13:25 Total Protein 8.5 G/DL (6.3-8.2) H 10/29/18 13:25 Albumin 4.6 g/dL (3.5-5.0) 10/29/18 13:25 Globulin 3.9 gm/dL (2.2-3.9) 10/29/18 13:25 Albumin/Globulin Ratio 1.2 (1.0-2.1) 10/29/18 13:25 Lipase 114 U/L (23-300) 10/29/18 13:25 - ECG O2 Sat by Pulse Oximetry: 100 Medical Decision Making Medical Decision Making: CBC, CMP, Lipase Pepcid 20mg IV Maalox 30mL PO x 1 Zofran 4mg IV Morphine 2mg IV x 1 CXR PA and lateral CT abd/pelvis with PO and IV contrast CXR: Worsening presumable right lower lobe pneumonia. Interval development of discoid atelectasis in the right mid lung. Small right pleural effusion. Follow- up after medical management is recommended to ensure complete resolution. Vanco 1G IV x 1 and Zosyn 3.375G IV x 1. Additional Morphine 2mg IV x [address] abd/pelvis w/ PO and IV contrast: 1. Multiple variable-sized hypoenhancing lesions in the liver, the largest subcapsular lesion in the left hepatic lobe measures 10 mm most compatible with metastatic deposits. 2. Large right and small left pleural effusions and presumable metastatic pulmonary nodules in the visualized lungs. 3. Sclerotic lesion in the left superior L2 vertebral body concerning for osteoblastic metastasis. 4. Mild circumferential mural thickening in the cecum could represent defer likely centimeter compromised setting. Scattered colonic diverticulosis without CT evidence for acute diverticulitis. Patient re-evaluated and continues to have pain. An additional Morphine 2mg IV x 1 ordered. Patient informed of CT scan results and that further management of her pain as well as plan for malignancy to be addressed during admission. Patient in agreement with plan. Her oxygen saturation remained 100% on 2L via n/c during ER stay. Case discussed with Dr. Quiñones and care transferred at 18:45. Bridge orders yesica jason for smooth transition of care. Disposition - Clinical Impression Clinical Impression: Intractable abdominal pain - Patient ED Disposition Is Patient to be Admitted: Yes Discussed With Dr.: Marvin Quiñones Doctor Will See Patient In The: Hospital - Disposition Disposition: Transfer of Care Disposition Time: 18:45 Condition: FAIR
[2018-10-29] MEDS ORDERED: Vancomycin 1 g Inj ONE (16:15)
[2018-10-29] MEDS ORDERED: Sodium Chloride 0.9% 100 ML IV ONE (17:35)
[2018-10-29] MEDS ORDERED: Iohexol 300 100 ML IJ ONE (17:35)
--- NOTE | 2018-10-29 18:23 | CT ---
Date of service: 10/29/2018 PROCEDURE: CT Abdomen and Pelvis with contrast HISTORY: Nausea and diarrhea, diffuse abd pain COMPARISON: 09/22/2018. TECHNIQUE: CT scan of the abdomen and pelvis was performed after administration of intravenous contrast. Oral contrast was administered. Coronal and sagittal reformatted images were obtained. Contrast dose: 90 mL Omnipaque 300 Radiation dose: Total exam DLP = 678.44 mGy-cm. This CT exam was performed using one or more of the following dose reduction techniques: Automated exposure control, adjustment of the mA and/or kV according to patient size, and/or use of iterative reconstruction technique. FINDINGS: LOWER THORAX: Large right and small left pleural effusions. There is multifocal atelectasis in the right lower lobe. There are subcentimeter pulmonary nodules in the visualized lungs, the largest in the left lower lobe measures 10 mm. LIVER: Normal in size. No ductal dilatation. There are multiple variable-sized hypoenhancing lesions in the liver, the largest in the subcapsular left hepatic lobe measures 1.9 cm. GALLBLADDER AND BILE DUCTS: Well distended. No calcified gallstones, wall thickening or pericholecystic fluid. PANCREAS: Normal in size with homogeneous enhancement. No gross lesion or ductal dilatation. SPLEEN: Normal in size and appearance. ADRENALS: No discrete nodule. KIDNEYS AND URETERS: Normal in size with homogeneous enhancement. There is stable parenchymal coarse calcification in the interpolar region of the right kidney with cortical scar. There is a 5 mm nonobstructing stone in the right lower pole. No hydronephrosis. No solid mass. VASCULATURE: No aortic aneurysm. There are no aortic atherosclerotic calcifications or mural plaque present. BOWEL: The small bowel loops are normal in caliber. There is moderate circumferential mural thickening in the cecum. There is scattered colonic diverticulosis without CT evidence for acute diverticulitis. APPENDIX: Normal appendix. PERITONEUM: No free fluid. No free air. LYMPH NODES: No enlarged lymph nodes. BLADDER: Well distended and normal in appearance. REPRODUCTIVE: The uterus is lobular, mildly enlarged and retroverted. BONES: No acute fracture. There is increased sclerosis is superior L2 vertebral body on the left. OTHER FINDINGS: None. IMPRESSION: 1. Multiple variable-sized hypoenhancing lesions in the liver, the largest subcapsular lesion in the left hepatic lobe measures 10 mm most compatible with metastatic deposits. 2. Large right and small left pleural effusions and presumable metastatic pulmonary nodules in the visualized lungs. 3. Sclerotic lesion in the left superior L2 vertebral body concerning for osteoblastic metastasis. 4. Mild circumferential mural thickening in the cecum could represent defer likely centimeter compromised setting. Scattered colonic diverticulosis without CT evidence for acute diverticulitis.
[2018-10-30 08:16] LABS: HEMOGLOBIN 12.6 g/dL (12.0-16.0); MEAN CELL VOLUME 85.8 fl (81.0-99.0); MEAN CORPUSCULAR HGB CONC 32.6 g/dL (33.0-37.0); RBC 4.51 Mil/uL (3.80-5.20); RED CELL DISTRIBUTION WIDTH 14.3 % (11.5-14.5); WHITE BLOOD COUNT 5.8 K/uL (4.8-10.8)
[2018-10-30 08:20] LABS: INR 1.2; PROTHROMBIN TIME 13.1 Seconds (9.8-13.1)
[2018-10-30 08:22] LABS: PARTIAL THROMBOPLASTIN TIME 33.9 Seconds (25.6-37.1)
[2018-10-30 08:36] LABS: ALB/GLOB RATIO 1.4 (1.0-2.1); ALT/SGPT 72 U/L (9-52); AST/SGOT 66 U/L (14-36); BLOOD UREA NITROGEN 8 mg/dl (7-17); CALCIUM 9.5 mg/dL (8.4-10.2); GFR NON-AFRICAN AMERICAN > 60
[2018-10-30] MEDS: methIMAzole 5 MG TAB PO SCH (09:41)
[2018-10-30] MEDS: Morphine 15 mg SR Tab PO SCH ×2 (09:46→21:51)
--- NOTE | 2018-10-30 09:53 | CP.PCM.CON ---
History of Present Illness - History of Present Illness History of Present Illness: Consult called for back pain. Patient ran out of MS contin 15mg po Q12H. Admitted for pneumonia and back pain. Patient just got morphine 4mg IVP at time of evaluation. Pain score of 7/10 from a 04/30. She did not get her MS Contin yet. Seems comfortable in bed. Past Patient History - Infectious Disease Hx of Infectious Diseases: None - Past Medical History & Family History Past Medical History?: Yes - Past Social History Smoking Status: Never Smoked - CARDIAC Hx Hypercholesterolemia: Yes - PULMONARY Hx Respiratory Disorders: No - NEUROLOGICAL Hx Neurological Disorder: No - HEENT Hx HEENT Problems: No - RENAL Hx Chronic Kidney Disease: No - ENDOCRINE/METABOLIC Hx Hyperthyroidism: Yes - HEMATOLOGICAL/ONCOLOGICAL Hx Human Immunodeficiency Virus (HIV): No - INTEGUMENTARY Hx Dermatological Problems: No - MUSCULOSKELETAL/RHEUMATOLOGICAL Hx Musculoskeletal Disorders: No Hx Falls: No - GASTROINTESTINAL Hx Gastrointestinal Disorders: No - GENITOURINARY/GYNECOLOGICAL Hx Genitourinary Disorders: No - PSYCHIATRIC Hx Anxiety: Yes - SURGICAL HISTORY Hx Surgeries: Yes Hx Mastectomy: Yes (right total mastectomy with axillary dissection) Hx Tubal Ligation: Yes Hx Vascular Access Device: Yes (chemoport) - ANESTHESIA Hx Anesthesia: Yes Hx Anesthesia Reactions: No Hx Malignant Hyperthermia: No Meds Allergies/Adverse Reactions: Allergies Allergy/AdvReac Type Severity Reaction Status Date / Time No Known Allergies Allergy Verified 09/18/18 12:40 - Medications Medications: Current Medications Docusate Sodium (Colace) 100 mg PO BID [facility] Last Admin: 10/30/18 09:39 Dose: 100 mg Home Med (Letrozole [Femara]) 2.5 mg PO DAILY [facility] Methimazole (Tapazole) 2.5 mg PO DAILY [facility] Last Admin: 10/30/18 09:41 Dose: 2.5 mg Morphine Sulfate (Morphine Extended Release Tab) 15 mg PO Q12 [facility] Last Admin: 10/30/18 09:46 Dose: 15 mg Morphine Sulfate (Morphine) 4 mg IVP Q3H PRN PRN Reason: pain 8-10 Last Admin: 10/30/18 08:09 Dose: 4 mg Results - Vital Signs Recent Vital Signs: Last Vital Signs Temp 98 F 10/30/18 08:10 Pulse 58 L 10/30/18 08:10 Resp 20 10/30/18 08:10 BP 158/96 H 10/30/18 08:10 Pulse Ox 97 10/30/18 08:10 - Labs Result Diagrams: 10/30/18 08:00 10/30/18 08:00 Labs: Laboratory Results - last 24 hr 10/29/18 10/29/18 10/30/18 13:25 13:25 06:02 WBC 6.7 RBC 4.82 Hgb 13.3 Hct 41.5 MCV 86.0 MCH 27.6 MCHC 32.1 L RDW 14.4 Plt Count 348 MPV 8.3 Neut % (Auto) 82.3 H Lymph % (Auto) 12.7 L [place] % (Auto) 4.5 Eos % (Auto) 0.1 Baso % (Auto) 0.4 Neut # (Auto) 5.5 Lymph # (Auto) 0.9 L [place] # (Auto) 0.3 Eos # (Auto) 0.0 Baso # (Auto) 0.0 PT INR APTT Sodium 140 Cancelled Potassium 4.6 Cancelled Chloride 107 Cancelled Carbon Dioxide 23 Cancelled Anion Gap 15 Cancelled BUN 9 Cancelled Creatinine 0.6 L Cancelled Est GFR ( Amer) > 60 Cancelled Est GFR (Non-Af Amer) > 60 Cancelled Random Glucose 115 H Cancelled Calcium 9.9 Cancelled Total Bilirubin 0.8 Cancelled AST 96 H D Cancelled ALT 81 H D Cancelled Alkaline Phosphatase 155 H Cancelled Total Protein 8.5 H Cancelled Albumin 4.6 Cancelled Globulin 3.9 Cancelled Albumin/Globulin Ratio 1.2 Cancelled Lipase 114 Thyroxine (T4) Cancelled TSH 3rd Generation Cancelled 10/30/18 10/30/18 10/30/18 08:00 08:00 08:00 WBC 5.8 RBC 4.51 Hgb 12.6 Hct 38.7 MCV 85.8 MCH 28.0 MCHC 32.6 L RDW 14.3 Plt Count 316 MPV Neut % (Auto) Lymph % (Auto) [place] % (Auto) Eos % (Auto) Baso % (Auto) Neut # (Auto) Lymph # (Auto) [place] # (Auto) Eos # (Auto) Baso # (Auto) PT 13.1 INR 1.2 APTT 33.9 Sodium 139 Potassium 4.2 Chloride 107 Carbon Dioxide 24 Anion Gap 12 BUN 8 Creatinine 0.7 Est GFR ( Amer) > 60 Est GFR (Non-Af Amer) > 60 Random Glucose 92 Calcium 9.5 Total Bilirubin 0.7 AST 66 H D ALT 72 H Alkaline Phosphatase 143 H Total Protein 6.9 Albumin 4.0 Globulin 2.9 Albumin/Globulin Ratio 1.4 Lipase Thyroxine (T4) 10.3 TSH 3rd Generation 0.60 Assessment & Plan - Assessment and Plan (Free Text) Assessment: Breast CA with metastasis, pneumonia and back pain Plan: Continue Morphine extended release 15mg po Q12H and Morphine 4mg IVP Q3H prn for break through pains as ordered. Patient to recieve her po extended release morphine as of time of evaluation. Will re-evaluate patient later today Will discuss with Dr. Heard.
[2018-10-30] MEDS ORDERED: Lidocaine Hydrochloride 1% 10 ML ONE (13:41)
--- NOTE | 2018-10-30 13:48 | CP.PCM.CON ---
History of Present Illness - History of Present Illness History of Present Illness: 58 y/o F with recurrent metastatic breast Ca on Letrozole s/p radiation awaiting chemo, HL who presents with nausea, abdominal pain and back pain. Pt states that she began having nausea this morning and has had 3 BMs last of which was watery. She also developed lower abdominal pain over the past couple of days and states that the pain is unbearable. Denies fever, chills, night sweats, vomiting. Further admits to feeling a little SOB and having diffuse back pain but ran out of her MS Contin 3 days ago. Pt recently admitted for Right sided pleural effusion s/p palliative Right thoracentesis with removal of 560cc of fluid on 10/23/18. Patient was due to start chemotherapy but has been awaiting insurance approval. She further admits to having pain all over her back. PMH: CA Breast Right Mastectomy Right Pleural Effusion Metastases Ribs EKG: normal Echo: Good LV function EF: 55-60% Mild MR Past Patient History - Infectious Disease Hx of Infectious Diseases: None - Past Medical History & Family History Past Medical History?: Yes - Past Social History Smoking Status: Never Smoked - CARDIAC Hx Hypercholesterolemia: Yes - PULMONARY Hx Respiratory Disorders: No - NEUROLOGICAL Hx Neurological Disorder: No - HEENT Hx HEENT Problems: No - RENAL Hx Chronic Kidney Disease: No - ENDOCRINE/METABOLIC Hx Hyperthyroidism: Yes - HEMATOLOGICAL/ONCOLOGICAL Hx Human Immunodeficiency Virus (HIV): No - INTEGUMENTARY Hx Dermatological Problems: No - MUSCULOSKELETAL/RHEUMATOLOGICAL Hx Musculoskeletal Disorders: No Hx Falls: No - GASTROINTESTINAL Hx Gastrointestinal Disorders: No - GENITOURINARY/GYNECOLOGICAL Hx Genitourinary Disorders: No - PSYCHIATRIC Hx Anxiety: Yes - SURGICAL HISTORY Hx Surgeries: Yes Hx Mastectomy: Yes (right total mastectomy with axillary dissection) Hx Tubal Ligation: Yes Hx Vascular Access Device: Yes (chemoport) - ANESTHESIA Hx Anesthesia: Yes Hx Anesthesia Reactions: No Hx Malignant Hyperthermia: No Meds Allergies/Adverse Reactions: Allergies Allergy/AdvReac Type Severity Reaction Status Date / Time No Known Allergies Allergy Verified 09/18/18 12:40 - Medications Medications: Current Medications Docusate Sodium (Colace) 100 mg PO BID [facility] Last Admin: 10/30/18 09:39 Dose: 100 mg Home Med (Letrozole [Femara]) 2.5 mg PO DAILY [facility] Methimazole (Tapazole) 2.5 mg PO DAILY [facility] Last Admin: 10/30/18 09:41 Dose: 2.5 mg Morphine Sulfate (Morphine Extended Release Tab) 15 mg PO Q12 [facility] Last Admin: 10/30/18 09:46 Dose: 15 mg Morphine Sulfate (Morphine) 4 mg IVP Q3H PRN PRN Reason: pain 8-10 Last Admin: 10/30/18 08:09 Dose: 4 mg Results - Vital Signs Recent Vital Signs: Last Vital Signs Temp 98 F 10/30/18 08:10 Pulse 58 L 10/30/18 08:10 Resp 20 10/30/18 08:10 BP 158/96 H 10/30/18 08:10 Pulse Ox 97 10/30/18 08:10 - Labs Result Diagrams: 10/30/18 08:00 10/30/18 08:00 Labs: Laboratory Results - last 24 hr 10/29/18 10/29/18 10/30/18 13:25 13:25 06:02 WBC 6.7 RBC 4.82 Hgb 13.3 Hct 41.5 MCV 86.0 MCH 27.6 MCHC 32.1 L RDW 14.4 Plt Count 348 MPV 8.3 Neut % (Auto) 82.3 H Lymph % (Auto) 12.7 L [place] % (Auto) 4.5 Eos % (Auto) 0.1 Baso % (Auto) 0.4 Neut # (Auto) 5.5 Lymph # (Auto) 0.9 L [place] # (Auto) 0.3 Eos # (Auto) 0.0 Baso # (Auto) 0.0 PT INR APTT Sodium 140 Cancelled Potassium 4.6 Cancelled Chloride 107 Cancelled Carbon Dioxide 23 Cancelled Anion Gap 15 Cancelled BUN 9 Cancelled Creatinine 0.6 L Cancelled Est GFR ( Amer) > 60 Cancelled Est GFR (Non-Af Amer) > 60 Cancelled Random Glucose 115 H Cancelled Calcium 9.9 Cancelled Total Bilirubin 0.8 Cancelled AST 96 H D Cancelled ALT 81 H D Cancelled Alkaline Phosphatase 155 H Cancelled Total Protein 8.5 H Cancelled Albumin 4.6 Cancelled Globulin 3.9 Cancelled Albumin/Globulin Ratio 1.2 Cancelled Lipase 114 Thyroxine (T4) Cancelled TSH 3rd Generation Cancelled 10/30/18 10/30/18 10/30/18 08:00 08:00 08:00 WBC 5.8 RBC 4.51 Hgb 12.6 Hct 38.7 MCV 85.8 MCH 28.0 MCHC 32.6 L RDW 14.3 Plt Count 316 MPV Neut % (Auto) Lymph % (Auto) [place] % (Auto) Eos % (Auto) Baso % (Auto) Neut # (Auto) Lymph # (Auto) [place] # (Auto) Eos # (Auto) Baso # (Auto) PT 13.1 INR 1.2 APTT 33.9 Sodium 139 Potassium 4.2 Chloride 107 Carbon Dioxide 24 Anion Gap 12 BUN 8 Creatinine 0.7 Est GFR ( Amer) > 60 Est GFR (Non-Af Amer) > 60 Random Glucose 92 Calcium 9.5 Total Bilirubin 0.7 AST 66 H D ALT 72 H Alkaline Phosphatase 143 H Total Protein 6.9 Albumin 4.0 Globulin 2.9 Albumin/Globulin Ratio 1.4 Lipase Thyroxine (T4) 10.3 TSH 3rd Generation 0.60 Assessment & Plan (1) Pleural effusion Assessment and Plan: the patient is cleared for surgery Status: Acute Priority: High (2) Breast cancer Status: Acute Priority: High
--- NOTE | 2018-10-30 13:51 | CP.PCM.CON ---
History of Present Illness - History of Present Illness History of Present Illness: CT surgery consult note for Dr. Atwood Consulted for recurrent malignant pleural effusions Patient is a 58 F with PMH Breast cancer metastatic to the lungs and recurrent pleural effusions, with most recent drainage 10/23/[address] surgery was consulted for evaluation of candidacy for possible Pleurodesis. Patient has undergone radiation and is now awaiting chemotherapy. She was admitted d/t N/V and abdominal pain, as well as generalized back pain. Pt to go for thoracentesis today with IR, Dr. Metz. Pt endorses back pain, SOB, abdominal pain and n/v. 12 point ROS otherwise negative PMH: Breast cancer with lung mets (completed radiotion awaiting chemo), HLD PSH: recent thoracentesis (500+cc), tubal ligation, total right mastectomy with axillary dissection, portacath placement All: NKDA Social: denies ETOH, drugs and tobacco use PMD: [place] Review of Systems - Review of Systems All systems: reviewed and no additional remarkable complaints except (as per HPI) Past Patient History - Infectious Disease Hx of Infectious Diseases: None - Past Medical History & Family History Past Medical History?: Yes - Past Social History Smoking Status: Never Smoked - CARDIAC Hx Hypercholesterolemia: Yes - PULMONARY Hx Respiratory Disorders: No - NEUROLOGICAL Hx Neurological Disorder: No - HEENT Hx HEENT Problems: No - RENAL Hx Chronic Kidney Disease: No - ENDOCRINE/METABOLIC Hx Hyperthyroidism: Yes - HEMATOLOGICAL/ONCOLOGICAL Hx Human Immunodeficiency Virus (HIV): No - INTEGUMENTARY Hx Dermatological Problems: No - MUSCULOSKELETAL/RHEUMATOLOGICAL Hx Musculoskeletal Disorders: No Hx Falls: No - GASTROINTESTINAL Hx Gastrointestinal Disorders: No - GENITOURINARY/GYNECOLOGICAL Hx Genitourinary Disorders: No - PSYCHIATRIC Hx Anxiety: Yes - SURGICAL HISTORY Hx Surgeries: Yes Hx Mastectomy: Yes (right total mastectomy with axillary dissection) Hx Tubal Ligation: Yes Hx Vascular Access Device: Yes (chemoport) - ANESTHESIA Hx Anesthesia: Yes Hx Anesthesia Reactions: No Hx Malignant Hyperthermia: No Meds Allergies/Adverse Reactions: Allergies Allergy/AdvReac Type Severity Reaction Status Date / Time No Known Allergies Allergy Verified 09/18/18 12:40 - Medications Medications: Current Medications Docusate Sodium (Colace) 100 mg PO BID [facility] Last Admin: 10/30/18 09:39 Dose: 100 mg Home Med (Letrozole [Femara]) 2.5 mg PO DAILY [facility] Methimazole (Tapazole) 2.5 mg PO DAILY [facility] Last Admin: 10/30/18 09:41 Dose: 2.5 mg Morphine Sulfate (Morphine Extended Release Tab) 15 mg PO Q12 [facility] Last Admin: 10/30/18 09:46 Dose: 15 mg Morphine Sulfate (Morphine) 4 mg IVP Q3H PRN PRN Reason: pain 8-10 Last Admin: 10/30/18 08:09 Dose: 4 mg Physical Exam - Head Exam Head Exam: ATRAUMATIC, NORMOCEPHALIC - Eye Exam Eye Exam: EOMI - Respiratory Exam Respiratory Exam: Decreased Breath Sounds Results - Vital Signs Recent Vital Signs: Last Vital Signs Temp 98 F 10/30/18 08:10 Pulse 58 L 10/30/18 08:10 Resp 20 10/30/18 08:10 BP 158/96 H 10/30/18 08:10 Pulse Ox 97 10/30/18 08:10 - Labs Result Diagrams: 10/30/18 08:00 10/30/18 08:00 Labs: Laboratory Results - last 24 hr 10/29/18 10/29/18 10/30/18 13:25 13:25 06:02 WBC 6.7 RBC 4.82 Hgb 13.3 Hct 41.5 MCV 86.0 MCH 27.6 MCHC 32.1 L RDW 14.4 Plt Count 348 MPV 8.3 Neut % (Auto) 82.3 H Lymph % (Auto) 12.7 L [place] % (Auto) 4.5 Eos % (Auto) 0.1 Baso % (Auto) 0.4 Neut # (Auto) 5.5 Lymph # (Auto) 0.9 L [place] # (Auto) 0.3 Eos # (Auto) 0.0 Baso # (Auto) 0.0 PT INR APTT Sodium 140 Cancelled Potassium 4.6 Cancelled Chloride 107 Cancelled Carbon Dioxide 23 Cancelled Anion Gap 15 Cancelled BUN 9 Cancelled Creatinine 0.6 L Cancelled Est GFR ( Amer) > 60 Cancelled Est GFR (Non-Af Amer) > 60 Cancelled Random Glucose 115 H Cancelled Calcium 9.9 Cancelled Total Bilirubin 0.8 Cancelled AST 96 H D Cancelled ALT 81 H D Cancelled Alkaline Phosphatase 155 H Cancelled Total Protein 8.5 H Cancelled Albumin 4.6 Cancelled Globulin 3.9 Cancelled Albumin/Globulin Ratio 1.2 Cancelled Lipase 114 Thyroxine (T4) Cancelled TSH 3rd Generation Cancelled 10/30/18 10/30/18 10/30/18 08:00 08:00 08:00 WBC 5.8 RBC 4.51 Hgb 12.6 Hct 38.7 MCV 85.8 MCH 28.0 MCHC 32.6 L RDW 14.3 Plt Count 316 MPV Neut % (Auto) Lymph % (Auto) [place] % (Auto) Eos % (Auto) Baso % (Auto) Neut # (Auto) Lymph # (Auto) [place] # (Auto) Eos # (Auto) Baso # (Auto) PT 13.1 INR 1.2 APTT 33.9 Sodium 139 Potassium 4.2 Chloride 107 Carbon Dioxide 24 Anion Gap 12 BUN 8 Creatinine 0.7 Est GFR ( Amer) > 60 Est GFR (Non-Af Amer) > 60 Random Glucose 92 Calcium 9.5 Total Bilirubin 0.7 AST 66 H D ALT 72 H Alkaline Phosphatase 143 H Total Protein 6.9 Albumin 4.0 Globulin 2.9 Albumin/Globulin Ratio 1.4 Lipase Thyroxine (T4) 10.3 TSH 3rd Generation 0.60 Assessment & Plan - Assessment and Plan (Free Text) Assessment: 58 yr old female with recurrent pleural effusions likely 2/2 metastatic breast cancer Plan: - continue O2 NC PRN - f/u cytology results of IR thoracentesis - plan for possible pleurodesis to prevent recurrence - further recs per Dr. Angelic Shultz, PGY 1 - Date & Time Date: 10/30/18 Time: 13:05
--- NOTE | 2018-10-30 13:56 | CP.PCM.HP ---
History of Present Illness - History of Present Illness History of Present Illness: CC: Abdomnal pain. 58 y/o F, PMHx. R Mastectomy 2nd to breast Ca Tx with radiation and now awaiting for Chemo, Axillary dissection 6 yrs ago Tx with chemo x 4 yrs, Chest Wall and Lungs Metastasis, Hypercholesterolemia, Hypothyroidism, Anxiety. 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 Worsening symptoms: Recurrent pleural effusions, R > L. SOB. Aggravated factor: Movements/ exercise. CXR: RLL PNA. Pleural effusion. Abd/Pelv CT: Large R and small L pleural effusion and presumable metastatic pulmonary nodules. Present on Admission - Present on Admission Any Indicators Present on Admission: No Review of Systems - Constitutional Constitutional: Other (negative) - EENT Eyes: Other (negatuive) Ears: Other (negative) Nose/Mouth/Throat: Other (negative) - Cardiovascular Cardiovascular: Other (negative) - Respiratory Respiratory: Dyspnea, Chest Congestion - Gastrointestinal Gastrointestinal: Nausea - Genitourinary Genitourinary: Other (negative) - Musculoskeletal Musculoskeletal: Back Pain (R Flank) - Integumentary Integumentary: Other (negative) - Neurological Neurological: Other (negative) - Psychiatric Psychiatric: Other (negative) - Endocrine Endocrine: Other (negative) - Hematologic/Lymphatic Hematologic: Other (negative) Past Patient History - Infectious Disease Hx of Infectious Diseases: None - Past Medical History & Family History Past Medical History?: Yes Pertinent Family History: Unknown - Past Social History Smoking Status: Never Smoked Alcohol: None Drugs: Denies Home Situation {Lives}: Alone - CARDIAC Hx Cardiac Disorders: Yes Hx Hypercholesterolemia: Yes - PULMONARY Hx Respiratory Disorders: Yes (Pleural effusion.) Hx Lung Cancer: Yes ((Metastasis)) - NEUROLOGICAL Hx Neurological Disorder: No - HEENT Hx HEENT Problems: No - RENAL Hx Chronic Kidney Disease: No - ENDOCRINE/METABOLIC Hx Endocrine Disorders: Yes Hx Hyperthyroidism: Yes - HEMATOLOGICAL/ONCOLOGICAL Hx Blood Disorders: Yes Hx Cancer: Yes (Breast, pulmonary metastasis) Hx Human Immunodeficiency Virus (HIV): No - INTEGUMENTARY Hx Dermatological Problems: No - MUSCULOSKELETAL/RHEUMATOLOGICAL Hx Musculoskeletal Disorders: No Hx Falls: No - GASTROINTESTINAL Hx Gastrointestinal Disorders: No - GENITOURINARY/GYNECOLOGICAL Hx Genitourinary Disorders: No - PSYCHIATRIC Hx Psychophysiologic Disorder: Yes Hx Anxiety: Yes - SURGICAL HISTORY Hx Surgeries: Yes Hx Mastectomy: Yes (right total mastectomy with axillary dissection) Hx Tubal Ligation: Yes Hx Vascular Access Device: Yes (chemoport) - ANESTHESIA Hx Anesthesia: Yes Hx Anesthesia Reactions: No Hx Malignant Hyperthermia: No Meds Home Medications: Home Medication List Medication Instructions Recorded Confirmed Type Letrozole [Femara] 2.5 mg PO DAILY #30 tab 11/04/18 Rx Morphine [Morphine Extended 15 mg PO Q12 #10 tabsr 11/04/18 Rx Release Tab] Morphine [Morphine Immediate 30 mg PO Q6 PRN #20 tab 11/04/18 Rx Release Tab] Allergies/Adverse Reactions: Allergies Allergy/AdvReac Type Severity Reaction Status Date / Time No Known Allergies Allergy Verified 09/18/18 12:40 Physical Exam - Constitutional Appears: No Acute Distress, Chronically Ill - Eye Exam Eye Exam: PERRL - ENT Exam ENT Exam: Normal Exam - Neck Exam Neck exam: Positive for: Normal Inspection - Respiratory Exam Respiratory Exam: Decreased Breath Sounds (b/l) - Cardiovascular Exam Cardiovascular Exam: REGULAR RHYTHM - GI/Abdominal Exam GI & Abdominal Exam: Normal Bowel Sounds, Soft - Extremities Exam Extremities exam: Positive for: normal inspection - Back Exam Back exam: NORMAL INSPECTION - Neurological Exam Neurological exam: Alert, Oriented x3 - Psychiatric Exam Psychiatric exam: Depressed - Skin Skin Exam: Warm Results - Vital Signs Recent Vital Signs: Last Vital Signs Temp 98 F 10/30/18 08:10 Pulse 58 L 10/30/18 08:10 Resp 20 10/30/18 08:10 BP 158/96 H 10/30/18 08:10 Pulse Ox 97 10/30/18 08:10 reviewed [email or web address] - Labs Result Diagrams: 11/04/18 10:20 11/04/18 10:20 Labs: Laboratory Results - last 24 hr 10/29/18 10/30/18 10/30/18 13:25 06:02 08:00 WBC 6.7 5.8 RBC 4.82 4.51 Hgb 13.3 12.6 Hct 41.5 38.7 MCV 86.0 85.8 MCH 27.6 28.0 MCHC 32.1 L 32.6 L RDW 14.4 14.3 Plt Count 348 316 MPV 8.3 Neut % (Auto) 82.3 H Lymph % (Auto) 12.7 L Lyon % (Auto) 4.5 Eos % (Auto) 0.1 Baso % (Auto) 0.4 Neut # (Auto) 5.5 Lymph # (Auto) 0.9 L Lyon # (Auto) 0.3 Eos # (Auto) 0.0 Baso # (Auto) 0.0 PT INR APTT Sodium Cancelled Potassium Cancelled Chloride Cancelled Carbon Dioxide Cancelled Anion Gap Cancelled BUN Cancelled Creatinine Cancelled Est GFR ( Amer) Cancelled Est GFR (Non-Af Amer) Cancelled Random Glucose Cancelled Calcium Cancelled Total Bilirubin Cancelled AST Cancelled ALT Cancelled Alkaline Phosphatase Cancelled Total Protein Cancelled Albumin Cancelled Globulin Cancelled Albumin/Globulin Ratio Cancelled Thyroxine (T4) Cancelled TSH 3rd Generation Cancelled 10/30/18 10/30/18 08:00 08:00 WBC RBC Hgb Hct MCV MCH MCHC RDW Plt Count MPV Neut % (Auto) Lymph % (Auto) Lyon % (Auto) Eos % (Auto) Baso % (Auto) Neut # (Auto) Lymph # (Auto) Lyon # (Auto) Eos # (Auto) Baso # (Auto) PT 13.1 INR 1.2 APTT 33.9 Sodium 139 Potassium 4.2 Chloride 107 Carbon Dioxide 24 Anion Gap 12 BUN 8 Creatinine 0.7 Est GFR ( Amer) > 60 Est GFR (Non-Af Amer) > 60 Random Glucose 92 Calcium 9.5 Total Bilirubin 0.7 AST 66 H D ALT 72 H Alkaline Phosphatase 143 H Total Protein 6.9 Albumin 4.0 Globulin 2.9 Albumin/Globulin Ratio 1.4 Thyroxine (T4) 10.3 TSH 3rd Generation 0.60 reviewed J.P[facility] - Imaging and Cardiology Chest x-ray Status: Report reviewed by me (J.P.) CT scan - abdomen Status: Report reviewed by me (J.P.) CT scan - pelvis Status: Report reviewed by me (J.P.) Assessment & Plan (1) Abdominal pain Status: Resolved Priority: High (2) Pleural effusion Status: Acute Priority: High Comment: Principal diagnosis (3) HX: breast cancer Status: Chronic Priority: High (4) Hypercholesterolemia Status: Chronic Priority: Medium (5) Lung metastasis Status: Acute Priority: High (6) 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 Status: Acute Priority: High Comment: Principal diagnosis - Assessment and Plan (Free Text) Plan: F/U Blood C-S, continue with Morphine, Tapazole and rest of Tx. For IR Thorac enthesis today. Cardiology, Pain Management and Surgery consult appreciated. Hematology consult. - Date & Time Date: 10/31/18
--- NOTE | 2018-10-30 13:57 | PCM.SURG1 ---
Surgeon's Initial Post Op Note - Surgeon's Notes Surgeon: Antwon Metz MD Utility Mechanic Supervisor: NONE Type of Anesthesia: Local Pre-Operative Diagnosis: Right pleural effusion Operative Findings: US showed small right effusion Post-Operative Diagnosis: Right pleural effusion Operation Performed: US guided right thoracentesis Specimen/Specimens Removed: 450 cc of straw colored fluid Estimated Blood Loss: EBL {In ML}: 2 Blood Products Given: N/A Drains Used: No Drains Post-Op Condition: Fair Date of Surgery/Procedure: 10/30/18 Time of Surgery/Procedure: 13:55
--- NOTE | 2018-10-30 14:31 | RAD ---
Date of service: 10/30/2018 PROCEDURE: CHEST RADIOGRAPH, 1 VIEW HISTORY: Status post right thoracentesis COMPARISON: 10/29/2018 FINDINGS: LUNGS: Clear. PLEURA: Possible very small left pleural effusion. No right pleural effusion. No pneumothorax. CARDIOVASCULAR: No aortic atherosclerotic calcification present. Normal. OSSEOUS STRUCTURES: No significant abnormalities. VISUALIZED UPPER ABDOMEN: Normal. OTHER FINDINGS: None. IMPRESSION: Possible very small left pleural effusion. Otherwise unremarkable.
--- NOTE | 2018-10-31 09:49 | CP.PCM.CON ---
History of Present Illness - History of Present Illness History of Present Illness: This is a 58 yrs old female who is very well known to me for the past 6 yrs. She had a right breast and right axillary cancer for which she had chemotherapy followed by surgery(right mastectomy) . she was then started on hormonal therapy and pt did fine, she followed up regularly in the office, She then developed a swelling in the right arm and mass right chest wall, this was a breast cancer on pathology. She was in excrutiating pain, and was gien RT to the mass which improved the pain. she was to start the chemotherapy, but developed a pleural effusion and shortness of breath. She had a thoracentesis but has again accumulated pleural fluid. She had another thoracentesis and 500cc of fluid removed. It has been sent for pathology. If positive for cancer she will have pleuradhesis . Chemo will be started immediately after the pleuradhesis. Past Patient History - Infectious Disease Hx of Infectious Diseases: None - Past Medical History & Family History Past Medical History?: Yes - Past Social History Smoking Status: Never Smoked - CARDIAC Hx Hypercholesterolemia: Yes - PULMONARY Hx Respiratory Disorders: No - NEUROLOGICAL Hx Neurological Disorder: No - HEENT Hx HEENT Problems: No - RENAL Hx Chronic Kidney Disease: No - ENDOCRINE/METABOLIC Hx Hyperthyroidism: Yes - HEMATOLOGICAL/ONCOLOGICAL Hx Human Immunodeficiency Virus (HIV): No - INTEGUMENTARY Hx Dermatological Problems: No - MUSCULOSKELETAL/RHEUMATOLOGICAL Hx Musculoskeletal Disorders: No Hx Falls: No - GASTROINTESTINAL Hx Gastrointestinal Disorders: No - GENITOURINARY/GYNECOLOGICAL Hx Genitourinary Disorders: No - PSYCHIATRIC Hx Anxiety: Yes - SURGICAL HISTORY Hx Surgeries: Yes Hx Mastectomy: Yes (right total mastectomy with axillary dissection) Hx Tubal Ligation: Yes Hx Vascular Access Device: Yes (chemoport) - ANESTHESIA Hx Anesthesia: Yes Hx Anesthesia Reactions: No Hx Malignant Hyperthermia: No Meds Allergies/Adverse Reactions: Allergies Allergy/AdvReac Type Severity Reaction Status Date / Time No Known Allergies Allergy Verified 09/18/18 12:40 - Medications Medications: Current Medications Docusate Sodium (Colace) 100 mg PO BID [facility] Last Admin: 10/30/18 16:59 Dose: 100 mg Home Med (Letrozole [Femara]) 2.5 mg PO DAILY [facility] Methimazole (Tapazole) 2.5 mg PO DAILY [facility] Last Admin: 10/30/18 09:41 Dose: 2.5 mg Morphine Sulfate (Morphine Extended Release Tab) 15 mg PO Q12 [facility] Last Admin: 10/30/18 21:51 Dose: 15 mg Morphine Sulfate (Morphine) 4 mg IVP Q3H PRN PRN Reason: pain 8-10 Last Admin: 10/31/18 03:54 Dose: 4 mg Physical Exam - Additional Findings Additional findings: Physical exam; alert,well oriented in no distress neck; supple,no adenopathy chest; air entry decreased right lung field tenderness onthe right chest wall heart; RSR, no murmur Abd; soft, no mass, no /s megaly Results - Vital Signs Recent Vital Signs: Last Vital Signs Temp 97.9 F 10/31/18 08:29 Pulse 66 10/31/18 08:29 Resp 20 10/31/18 08:29 BP 116/74 10/31/18 08:29 Pulse Ox 99 10/31/18 08:29 - Labs Result Diagrams: 10/30/18 08:00 10/30/18 08:00 Assessment & Plan - Assessment and Plan (Free Text) Assessment: impression; Breast cancer,with metastasis to chest wall and lung. Plan: Plan; If pt has tumor cells in te pleural fluid, a pleuradhesis will be done, followed by chempotherapy - Date & Time Date: 10/31/18 Time: 09:53
[2018-10-31] MEDS: methIMAzole 5 MG TAB PO SCH (09:56)
[2018-10-31] MEDS: Morphine 15 mg SR Tab PO SCH ×2 (10:04→21:30)
--- NOTE | 2018-10-31 13:18 | CP.PCM.PN ---
Subjective - Date & Time of Evaluation Date of Evaluation: 10/31/18 Time of Evaluation: 10:20 - Subjective Subjective: F/U Metastatic disease. R Thoracentesis. Breathing better post R Thoracentesis 10-30-18, 560 cc fluid Objective - Vital Signs/Intake and Output Vital Signs (last 24 hours): Temp Pulse Resp BP Pulse Ox 97.9 F 66 20 116/74 99 10/31/18 08:29 10/31/18 08:29 10/31/18 08:29 10/31/18 08:29 10/31/18 08:29 - Medications Medications: Current Medications Acetaminophen/Butalbital/Caffeine (Fioricet) 1 tab PO Q4 PRN PRN Reason: Headache Docusate Sodium (Colace) 100 mg PO BID [facility] Last Admin: 10/31/18 09:55 Dose: 100 mg Methimazole (Tapazole) 2.5 mg PO DAILY [facility] Last Admin: 10/31/18 09:56 Dose: 2.5 mg Morphine Sulfate (Morphine Extended Release Tab) 15 mg PO Q12 [facility] Last Admin: 10/31/18 10:04 Dose: 15 mg Morphine Sulfate (Morphine) 4 mg IVP Q3H PRN PRN Reason: pain 8-10 Last Admin: 10/31/18 03:54 Dose: 4 mg - Labs Labs: 10/30/18 08:00 10/30/18 08:00 PT 13.1 Seconds (9.8-13.1) 10/30/18 08:00 INR 1.2 10/30/18 08:00 APTT 33.9 Seconds (25.6-37.1) 10/30/18 08:00 - Constitutional Appears: No Acute Distress, Chronically Ill - Head Exam Head Exam: NORMAL INSPECTION - Eye Exam Eye Exam: PERRL - ENT Exam ENT Exam: Normal Exam - Neck Exam Neck Exam: Normal Inspection - Respiratory Exam Respiratory Exam: Chest Wall Tenderness (Right), Decreased Breath Sounds (R>L) - Cardiovascular Exam Cardiovascular Exam: REGULAR RHYTHM - GI/Abdominal Exam GI & Abdominal Exam: Soft, Normal Bowel Sounds - Extremities Exam Extremities Exam: Normal Inspection - Back Exam Back Exam: NORMAL INSPECTION - Neurological Exam Neurological Exam: Alert, Oriented x3 - Psychiatric Exam Psychiatric exam: Depressed - Skin Skin Exam: Warm Assessment and Plan (1) S/P thoracentesis Status: Acute (2) Pleural effusion Status: Acute (3) Lung metastasis Status: Acute (4) 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 Status: Acute (5) HX: breast cancer Status: Chronic (6) Hypercholesterolemia Status: Chronic (7) Abdominal pain Status: Resolved - Assessment and Plan (Free Text) Plan: Patient to have R Pleurodesis , previous R Thoracentesis 560cc 10-23-18 pleural effusion positive for metastatic Adeno Ca, She has been cleared by C ardiologist,after Pleurodesis plan for Chemotherapy
[2018-10-31] MEDS: Apap-Butalbital-Caffeine 325-50-40mg Tab PO PRN (13:29)
[2018-10-31] MEDS: Enoxaparin 40 mg Syringe SC SCH (17:21)
[2018-10-31] MEDS ORDERED: Potassium CL 10 MEQ/50 ML 50 ML IVPB SCH (19:00)
[2018-11-01] MEDS: Apap-Butalbital-Caffeine 325-50-40mg Tab PO PRN (03:26)
[2018-11-01] MEDS: Morphine 15 mg SR Tab PO SCH ×2 (08:51→21:50)
[2018-11-01] MEDS: Enoxaparin 40 mg Syringe SC SCH (08:53)
[2018-11-01] MEDS: methIMAzole 5 MG TAB PO SCH (08:54)
--- NOTE | 2018-11-01 09:50 | CP.PCM.PN ---
Subjective - Date & Time of Evaluation Date of Evaluation: 11/01/18 Time of Evaluation: 09:44 - Subjective Subjective: Pt 's pain is well controlled with the analgesics, but she still c/o headaches, Considering he diffuse metastatic diseaser,I would not be surprised if she has brain mets as well. The pathology result is not yet available . The decision to do the pleuradhesis will depend on the result of the cytology. She is due for chemotherapy on saturday, but this will depend on whether or not she has the pleuradhesis Objective - Vital Signs/Intake and Output Vital Signs (last 24 hours): Temp Pulse Resp BP Pulse Ox 98.1 F 71 20 125/87 99 11/01/18 08:15 11/01/18 08:15 11/01/18 08:15 11/01/18 08:15 11/01/18 08:15 - Medications Medications: Current Medications Acetaminophen/Butalbital/Caffeine (Fioricet) 1 tab PO Q4 PRN PRN Reason: Headache Last Admin: 11/01/18 03:26 Dose: 1 tab Docusate Sodium (Colace) 100 mg PO BID [facility] Last Admin: 11/01/18 08:52 Dose: 100 mg Enoxaparin Sodium (Lovenox) 40 mg SC DAILY [facility]; Protocol Last Admin: 11/01/18 08:53 Dose: 40 mg Methimazole (Tapazole) 2.5 mg PO DAILY [facility] Last Admin: 11/01/18 08:54 Dose: 2.5 mg Morphine Sulfate (Morphine Extended Release Tab) 15 mg PO Q12 [facility] Last Admin: 11/01/18 08:51 Dose: 15 mg Morphine Sulfate (Morphine) 4 mg IVP Q3H PRN PRN Reason: pain 8-10 Last Admin: 10/31/18 23:12 Dose: 4 mg - Labs Labs: 10/30/18 08:00 10/30/18 08:00 PT 13.1 Seconds (9.8-13.1) 10/30/18 08:00 INR 1.2 10/30/18 08:00 APTT 33.9 Seconds (25.6-37.1) 10/30/18 08:00
[2018-11-01] MEDS ORDERED: Sodium Chloride 0.9% 50 ML IV ONE (09:56)
[2018-11-01] MEDS ORDERED: Iohexol 300 100 ML IJ ONE (09:56)
--- NOTE | 2018-11-01 11:49 | CT ---
Date of service: 11/01/2018 PROCEDURE: CT HEAD WITH AND WITHOUT CONTRAST HISTORY: Headaches; rule out metastasis COMPARISON: None available. TECHNIQUE: Axial computed tomography images were obtained through the head/brain with and without intravenous contrast enhancement. Contrast dose: 98 cc Omnipaque contrast material Radiation dose: Total exam DLP = 1554.68 mGy-cm. This CT exam was performed using one or more of the following dose reduction techniques: Automated exposure control, adjustment of the mA and/or kV according to patient size, and/or use of iterative reconstruction technique. FINDINGS: HEMORRHAGE: No acute parenchymal, subarachnoid or extra-axial hemorrhage. BRAIN: No evidence of large acute infarct however suspect minimal chronic periventricular white matter ischemic changes. No enhancing parenchymal nor extra-axial mass or collection.. No evidence of unusual meningeal enhancement. Note however that if metastatic disease is suspected clinically, recommend follow-up of pre and post-contrast MRI of the brain which is much more sensitive for detecting small lesions that may not be visualized on early CT imaging Mild age-appropriate volume loss. VENTRICLES: No obstructive hydrocephalus. CALVARIUM: Calvarium appears intact. No evidence of acute calvarial fractures. No definitive suspicious lytic or blastic lesions SINUSES: Unremarkable as visualized. No significant inflammatory changes. MASTOID AIR CELLS: Unremarkable as visualized. No mastoid effusion. OTHER FINDINGS: None. IMPRESSION: No acute intracranial hemorrhage. Minor chronic periventricular white matter ischemic changes. No evidence suggest metastatic disease however follow-up pre and post-contrast MRI of the brain is recommended as this is much more sensitive detecting small metastatic lesions that may not be visualized on early CT imaging. Mild age-appropriate volume loss
--- NOTE | 2018-11-01 16:50 | CP.PCM.PN ---
Subjective - Date & Time of Evaluation Date of Evaluation: 11/01/18 Time of Evaluation: 15:20 - Subjective Subjective: F/U Metastatic disease/ R Thoracentesis. Breathing better post R thoracentesis 4-11 450cc fluid Objective - Vital Signs/Intake and Output Vital Signs (last 24 hours): Temp Pulse Resp BP Pulse Ox 98.2 F 70 20 118/65 99 11/01/18 16:42 11/01/18 16:42 11/01/18 16:42 11/01/18 16:42 11/01/18 16:42 - Medications Medications: Current Medications Acetaminophen/Butalbital/Caffeine (Fioricet) 1 tab PO Q4 PRN PRN Reason: Headache Last Admin: 11/01/18 03:26 Dose: 1 tab Docusate Sodium (Colace) 100 mg PO BID [facility] Last Admin: 11/01/18 08:52 Dose: 100 mg Enoxaparin Sodium (Lovenox) 40 mg SC DAILY [facility]; Protocol Last Admin: 11/01/18 08:53 Dose: 40 mg Methimazole (Tapazole) 2.5 mg PO DAILY [facility] Last Admin: 11/01/18 08:54 Dose: 2.5 mg Morphine Sulfate (Morphine Extended Release Tab) 15 mg PO Q12 [facility] Last Admin: 11/01/18 08:51 Dose: 15 mg Morphine Sulfate (Morphine) 4 mg IVP Q3H PRN PRN Reason: pain 8-10 Last Admin: 11/01/18 16:03 Dose: 4 mg - Labs Labs: 10/30/18 08:00 10/30/18 08:00 PT 13.1 Seconds (9.8-13.1) 10/30/18 08:00 INR 1.2 10/30/18 08:00 APTT 33.9 Seconds (25.6-37.1) 10/30/18 08:00 - Constitutional Appears: No Acute Distress, Chronically Ill - Head Exam Head Exam: NORMAL INSPECTION - Eye Exam Eye Exam: PERRL - ENT Exam ENT Exam: Normal Exam - Neck Exam Neck Exam: Normal Inspection - Respiratory Exam Respiratory Exam: Chest Wall Tenderness (right), Decreased Breath Sounds (R > L base) - Cardiovascular Exam Cardiovascular Exam: REGULAR RHYTHM - GI/Abdominal Exam GI & Abdominal Exam: Soft, Normal Bowel Sounds - Extremities Exam Extremities Exam: Normal Inspection - Back Exam Back Exam: NORMAL INSPECTION - Neurological Exam Neurological Exam: Alert, Oriented x3 Additional comments: no focal motor sensory deficit, generalized weakness - Psychiatric Exam Psychiatric exam: Depressed - Skin Skin Exam: Warm Assessment and Plan (1) S/P thoracentesis Assessment & Plan: R lung Status: Acute (2) Lung metastasis Status: Acute (3) Pleural effusion Status: Acute (4) 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 Status: Acute (5) HX: breast cancer Status: Chronic (6) Hypercholesterolemia Status: Chronic (7) Abdominal pain Status: Resolved - Assessment and Plan (Free Text) Plan: CT Head no metastasis, previous R Thoracentesis 10-23-18 Cytology positive for metastatic Adeno Ca, cleared by Infection Prevention Specialist, Patient to have R Pleurodesis, plan to have Chemotherapy after Pleurodesis, f/u with Thoracic surgeon
[2018-11-02] MEDS: Morphine 15 mg SR Tab PO SCH ×2 (09:29→21:10)
[2018-11-02] MEDS: Enoxaparin 40 mg Syringe SC SCH (09:30)
[2018-11-02] MEDS: methIMAzole 5 MG TAB PO SCH (09:31)
--- NOTE | 2018-11-02 09:54 | RAD ---
Date of service: 11/02/2018 PROCEDURE: CHEST RADIOGRAPH, 1 VIEW HISTORY: follow up pleural effusions COMPARISON: Chest radiograph dated 10/30/2018. FINDINGS: LUNGS: Patchy bibasilar infiltrates. Left basilar atelectasis. PLEURA: Stable small left effusion. No pneumothorax. CARDIOVASCULAR: Aortic atherosclerotic calcifications. Cardiomediastinal silhouette stably enlarged. OSSEOUS STRUCTURES: Unchanged. VISUALIZED UPPER ABDOMEN: Retained enteric contrast. OTHER FINDINGS: Right axillary surgical clips. IMPRESSION: Stable bibasilar patchy infiltrates and stable small left pleural effusion.
--- NOTE | 2018-11-02 15:38 | CP.PCM.CON ---
History of Present Illness - History of Present Illness History of Present Illness: This is a 58 yr old female with h/0 breast cancer with metastasis to chest wall ,waiting for chemo and with no known psychiatric illness admitted for abdominal pain and psych consult called for evaluation of depression.pt says that she is more worried about her daughter who is depressed because of her and pt says that she was initially sad and depressed but now she is feeling better and strong enough to deal with her illness and denies suicidal ideation and appears in good spirits. Past Patient History - Infectious Disease Hx of Infectious Diseases: None - Past Medical History & Family History Past Medical History?: Yes - Past Social History Smoking Status: Never Smoked Alcohol: None Drugs: Denies Home Situation {Lives}: Alone - CARDIAC Hx Cardiac Disorders: Yes Hx Hypercholesterolemia: Yes - PULMONARY Hx Respiratory Disorders: Yes (Pleural effusion.) Hx Lung Cancer: Yes ((Metastasis)) - NEUROLOGICAL Hx Neurological Disorder: No - HEENT Hx HEENT Problems: No - RENAL Hx Chronic Kidney Disease: No - ENDOCRINE/METABOLIC Hx Endocrine Disorders: Yes Hx Hyperthyroidism: Yes - HEMATOLOGICAL/ONCOLOGICAL Hx Blood Disorders: Yes Hx Cancer: Yes (Breast, pulmonary metastasis) Hx Human Immunodeficiency Virus (HIV): No - INTEGUMENTARY Hx Dermatological Problems: No - MUSCULOSKELETAL/RHEUMATOLOGICAL Hx Musculoskeletal Disorders: No Hx Falls: No - GASTROINTESTINAL Hx Gastrointestinal Disorders: No - GENITOURINARY/GYNECOLOGICAL Hx Genitourinary Disorders: No - PSYCHIATRIC Hx Psychophysiologic Disorder: Yes Hx Anxiety: Yes - SURGICAL HISTORY Hx Surgeries: Yes Hx Mastectomy: Yes (right total mastectomy with axillary dissection) Hx Tubal Ligation: Yes Hx Vascular Access Device: Yes (chemoport) - ANESTHESIA Hx Anesthesia: Yes Hx Anesthesia Reactions: No Hx Malignant Hyperthermia: No Meds Allergies/Adverse Reactions: Allergies Allergy/AdvReac Type Severity Reaction Status Date / Time No Known Allergies Allergy Verified 09/18/18 12:40 - Medications Medications: Current Medications Acetaminophen/Butalbital/Caffeine (Fioricet) 1 tab PO Q4 PRN PRN Reason: Headache Last Admin: 11/01/18 03:26 Dose: 1 tab Docusate Sodium (Colace) 100 mg PO BID [facility] Last Admin: 11/02/18 09:30 Dose: 100 mg Enoxaparin Sodium (Lovenox) 40 mg SC DAILY [facility]; Protocol Last Admin: 11/02/18 09:30 Dose: 40 mg Methimazole (Tapazole) 2.5 mg PO DAILY [facility] Last Admin: 11/02/18 09:31 Dose: 2.5 mg Morphine Sulfate (Morphine Extended Release Tab) 15 mg PO Q12 [facility] Last Admin: 11/02/18 09:29 Dose: 15 mg Morphine Sulfate (Morphine) 4 mg IVP Q3H PRN PRN Reason: pain 8-10 Last Admin: 11/02/18 14:16 Dose: 4 mg Physical Exam - Psychiatric Exam Psychiatric exam: Normal Affect, Normal Mood Additional comments: pt is alert,oriented with intact cognition.pt denies suicidal ideation and has stable mood and fair insight. Results - Vital Signs Recent Vital Signs: Last Vital Signs Temp 98.2 F 11/02/18 07:56 Pulse 61 11/02/18 07:56 Resp 20 11/02/18 07:56 BP 108/71 11/02/18 07:56 Pulse Ox 98 11/02/18 07:56 - Labs Result Diagrams: 10/30/18 08:00 10/30/18 08:00 Assessment & Plan - Assessment and Plan (Free Text) Assessment: Adjustment disorder with depressed mood Plan: i offered pt trial of zoloft for underlying depressed mood but pt says that sh e is on too many meds and does not want to try any antidepressants and has support of family . pt is psychiatrically stable and will benefit fron outpt therapy and social work administrator to make referral for outpt counselling when d/c.
--- NOTE | 2018-11-02 19:50 | CP.PCM.PN ---
Subjective - Date & Time of Evaluation Date of Evaluation: 11/02/18 - Subjective Subjective: F/U Metastatic Disease. s/p R Thoracentesis. Pt breathing better after Thoracentesis, no SOB with O2, SILVEIRA when going to the bathroom without O2 Objective - Vital Signs/Intake and Output Vital Signs (last 24 hours): Temp Pulse Resp BP Pulse Ox 98.1 F 50 L 20 112/72 98 11/02/18 15:54 11/02/18 15:54 11/02/18 15:54 11/02/18 15:54 11/02/18 15:54 - Medications Medications: Current Medications Acetaminophen/Butalbital/Caffeine (Fioricet) 1 tab PO Q4 PRN PRN Reason: Headache Last Admin: 11/01/18 03:26 Dose: 1 tab Docusate Sodium (Colace) 100 mg PO BID [facility] Last Admin: 11/02/18 17:01 Dose: 100 mg Enoxaparin Sodium (Lovenox) 40 mg SC DAILY [facility]; Protocol Last Admin: 11/02/18 09:30 Dose: 40 mg Methimazole (Tapazole) 2.5 mg PO DAILY [facility] Last Admin: 11/02/18 09:31 Dose: 2.5 mg Morphine Sulfate (Morphine Extended Release Tab) 15 mg PO Q12 [facility] Last Admin: 11/02/18 09:29 Dose: 15 mg Morphine Sulfate (Morphine) 4 mg IVP Q3H PRN PRN Reason: pain 8-10 Last Admin: 11/02/18 14:16 Dose: 4 mg - Labs Labs: 10/30/18 08:00 10/30/18 08:00 PT 13.1 Seconds (9.8-13.1) 10/30/18 08:00 INR 1.2 10/30/18 08:00 APTT 33.9 Seconds (25.6-37.1) 10/30/18 08:00 - Constitutional Appears: No Acute Distress, Chronically Ill - Head Exam Head Exam: NORMAL INSPECTION - Eye Exam Eye Exam: PERRL - ENT Exam ENT Exam: Normal Exam - Neck Exam Neck Exam: Normal Inspection - Respiratory Exam Respiratory Exam: Chest Wall Tenderness (Right, minimal), Decreased Breath Sounds (R>L.) - Cardiovascular Exam Cardiovascular Exam: REGULAR RHYTHM - GI/Abdominal Exam GI & Abdominal Exam: Soft, Normal Bowel Sounds - Extremities Exam Extremities Exam: Normal Inspection - Back Exam Back Exam: NORMAL INSPECTION - Neurological Exam Neurological Exam: Alert, Oriented x3 Additional comments: No focal motor/sensory deficit. Generalized weakness. 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
[2018-11-03] MEDS: Enoxaparin 40 mg Syringe SC SCH (08:47)
[2018-11-03] MEDS: Morphine 15 mg SR Tab PO SCH ×2 (08:47→22:17)
[2018-11-03] MEDS: methIMAzole 5 MG TAB PO SCH (08:48)
[2018-11-03] MEDS: Apap-Butalbital-Caffeine 325-50-40mg Tab PO PRN (08:48)
--- NOTE | 2018-11-03 09:10 | CP.PCM.PN ---
Subjective - Date & Time of Evaluation Date of Evaluation: 11/03/18 Time of Evaluation: 09:07 (n) - Subjective Subjective: Pt is feeling better. The residual pleural fluid is minimal, so a pleuradhesis will not be done. we will start her chemotherapy today. with gemcitabine and paclitaxel Objective - Vital Signs/Intake and Output Vital Signs (last 24 hours): Temp Pulse Resp BP Pulse Ox 98.0 F 68 20 117/77 99 11/03/18 08:13 11/03/18 08:13 11/03/18 08:13 11/03/18 08:13 11/03/18 08:13 - Medications Medications: Current Medications Acetaminophen/Butalbital/Caffeine (Fioricet) 1 tab PO Q4 PRN PRN Reason: Headache Last Admin: 11/03/18 08:48 Dose: 1 tab Docusate Sodium (Colace) 100 mg PO BID [facility] Last Admin: 11/03/18 08:48 Dose: 100 mg Enoxaparin Sodium (Lovenox) 40 mg SC DAILY [facility]; Protocol Last Admin: 11/03/18 08:47 Dose: 40 mg Methimazole (Tapazole) 2.5 mg PO DAILY [facility] Last Admin: 11/03/18 08:48 Dose: 2.5 mg Morphine Sulfate (Morphine Extended Release Tab) 15 mg PO Q12 [facility] Last Admin: 11/03/18 08:47 Dose: 15 mg Morphine Sulfate (Morphine) 4 mg IVP Q3H PRN PRN Reason: pain 8-10 Last Admin: 11/03/18 03:31 Dose: 4 mg - Labs Labs: 10/30/18 08:00 10/30/18 08:00 PT 13.1 Seconds (9.8-13.1) 10/30/18 08:00 INR 1.2 10/30/18 08:00 APTT 33.9 Seconds (25.6-37.1) 10/30/18 08:00
[2018-11-03] MEDS ORDERED: Dexamethasone 10 MG in Sodium Chloride 0.9% 50 ML IVPB ONE (09:27)
--- NOTE | 2018-11-03 09:29 | CP.PCM.PN ---
Subjective - Date & Time of Evaluation Date of Evaluation: 11/03/18 Time of Evaluation: 07:15 - Subjective Subjective: Cardiothoracic surgery progress note: Dr. Atwood Patient seen and examined this ma at bedside. No acute events overnight. Endorses improvement in chest discomfort and SOB. 12 point ROS otherwise negative Objective - Vital Signs/Intake and Output Vital Signs (last 24 hours): Temp Pulse Resp BP Pulse Ox 98.0 F 68 20 117/77 99 11/03/18 08:13 11/03/18 08:13 11/03/18 08:13 11/03/18 08:13 11/03/18 08:13 - Medications Medications: Current Medications Acetaminophen/Butalbital/Caffeine (Fioricet) 1 tab PO Q4 PRN PRN Reason: Headache Last Admin: 11/03/18 08:48 Dose: 1 tab Docusate Sodium (Colace) 100 mg PO BID [facility] Last Admin: 11/03/18 08:48 Dose: 100 mg Enoxaparin Sodium (Lovenox) 40 mg SC DAILY [facility]; Protocol Last Admin: 11/03/18 08:47 Dose: 40 mg Methimazole (Tapazole) 2.5 mg PO DAILY [facility] Last Admin: 11/03/18 08:48 Dose: 2.5 mg Morphine Sulfate (Morphine Extended Release Tab) 15 mg PO Q12 [facility] Last Admin: 11/03/18 08:47 Dose: 15 mg Morphine Sulfate (Morphine) 4 mg IVP Q3H PRN PRN Reason: pain 8-10 Last Admin: 11/03/18 03:31 Dose: 4 mg - Labs Labs: 10/30/18 08:00 10/30/18 08:00 PT 13.1 Seconds (9.8-13.1) 10/30/18 08:00 INR 1.2 10/30/18 08:00 APTT 33.9 Seconds (25.6-37.1) 10/30/18 08:00 - Constitutional Appears: Non-toxic, No Acute Distress, Cachectic, Chronically Ill - Head Exam Head Exam: ATRAUMATIC, NORMOCEPHALIC - Eye Exam Eye Exam: EOMI - ENT Exam ENT Exam: Mucous Membranes Moist - Respiratory Exam Respiratory Exam: NORMAL BREATHING PATTERN - Cardiovascular Exam Cardiovascular Exam: REGULAR RHYTHM - GI/Abdominal Exam GI & Abdominal Exam: Soft. absent: Tenderness - Neurological Exam Neurological Exam: Alert, Awake, Oriented x3 - Psychiatric Exam Psychiatric exam: Normal Affect, Normal Mood - Skin Skin Exam: Dry, Intact, Normal Color, Warm Assessment and Plan - Assessment and Plan (Free Text) Assessment: 58 yr old female with metastatic breast cancer and recurrent pleural effusions, s/p IR thoracentesis x2 Plan: - pt to begin chemo today per Heme/onc - CXR stable with no effusion re-accumulation between 10/30 and 11/02 - pt may benefit from pleurex catheter placement vs pleurodesis if effusion recurs - recommend considering pt life expectancy/performance status in decision making - no pleurodesis necessary at this time - please reconsult as necessary - discussed with Dr. Angelic Shultz, PGY 1
[2018-11-03] MEDS: Sodium Chloride 0.9% 500 ML IV SCH ×3 (12:05→20:38)
[2018-11-03] MEDS ORDERED: GEMCITABINE IV ONE (12:30)
[2018-11-03] MEDS ORDERED: SODIUM CHLORIDE 0.9% IV ONE (12:30)
[2018-11-03] MEDS ORDERED: DiphenhydrAMINE 50 mg/ml Inj IVP ONE (13:00)
--- NOTE | 2018-11-03 15:51 | CP.PCM.PN ---
Subjective - Date & Time of Evaluation Date of Evaluation: 11/03/18 Time of Evaluation: 12:30 - Subjective Subjective: F/U Metastatic Disease. s/p R Thracentesis Breathing better, no SOB with O2, minimal R chest wall tenderness. Objective - Vital Signs/Intake and Output Vital Signs (last 24 hours): Temp Pulse Resp BP Pulse Ox 98.0 F 68 20 117/77 99 11/03/18 08:13 11/03/18 08:13 11/03/18 08:13 11/03/18 08:13 11/03/18 08:13 - Medications Medications: Current Medications Acetaminophen/Butalbital/Caffeine (Fioricet) 1 tab PO Q4 PRN PRN Reason: Headache Last Admin: 11/03/18 08:48 Dose: 1 tab Docusate Sodium (Colace) 100 mg PO BID [facility] Last Admin: 11/03/18 08:48 Dose: 100 mg Famotidine (Pepcid) 20 mg IVP DAILY [facility] Last Admin: 11/03/18 13:38 Dose: 20 mg Sodium Chloride (Sodium Chloride 0.9%) 500 mls @ 90 mls/hr IV .Q5H34M [facility] Last Admin: 11/03/18 12:05 Dose: 90 mls/hr Paclitaxel 300 mg/ Sodium (Chloride) 550 mls @ 183.333 mls/hr IV ONCE ONE Stop: 11/03/18 15:59 Last Admin: 11/03/18 13:48 Dose: 183.333 mls/hr Methimazole (Tapazole) 2.5 mg PO DAILY [facility] Last Admin: 11/03/18 08:48 Dose: 2.5 mg Morphine Sulfate (Morphine Extended Release Tab) 15 mg PO Q12 [facility] Last Admin: 11/03/18 08:47 Dose: 15 mg Morphine Sulfate (Morphine) 4 mg IVP Q3H PRN PRN Reason: pain 8-10 Last Admin: 11/03/18 11:47 Dose: 4 mg - Labs Labs: 10/30/18 08:00 10/30/18 08:00 PT 13.1 Seconds (9.8-13.1) 10/30/18 08:00 INR 1.2 10/30/18 08:00 APTT 33.9 Seconds (25.6-37.1) 10/30/18 08:00 - Constitutional Appears: No Acute Distress, Chronically Ill - Head Exam Head Exam: NORMAL INSPECTION - Eye Exam Eye Exam: PERRL - ENT Exam ENT Exam: Normal Exam - Neck Exam Neck Exam: Normal Inspection - Respiratory Exam Respiratory Exam: Chest Wall Tenderness (minimal on Right), Decreased Breath Sounds (at bases R>L.) - Cardiovascular Exam Cardiovascular Exam: REGULAR RHYTHM - Extremities Exam Extremities Exam: Normal Inspection - Back Exam Back Exam: NORMAL INSPECTION - Neurological Exam Neurological Exam: Alert, Oriented x3 Additional comments: No focal motor/sensory deficit - Psychiatric Exam Psychiatric exam: Depressed - Skin Skin Exam: Warm Assessment and Plan (1) S/P thoracentesis Status: Acute (2) Lung metastasis Status: Acute (3) Pleural effusion Status: Acute (4) 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
[2018-11-04] MEDS: Sodium Chloride 0.9% 500 ML IV SCH ×4 (00:21→22:24)
[2018-11-04] MEDS: Apap-Butalbital-Caffeine 325-50-40mg Tab PO PRN (02:54)
[2018-11-04] MEDS: methIMAzole 5 MG TAB PO SCH (09:43)
--- NOTE | 2018-11-04 10:38 | CP.PCM.PN ---
Subjective - Date & Time of Evaluation Date of Evaluation: 11/04/18 Time of Evaluation: 10:34 - Subjective Subjective: Pt received gemcitabine as well as paclitaxel yesterday. She tolerated it well with no nausea or vomiting. She will receive the gemcitabine 2nd dose today and then the next treatment will be in 3 weeks. She has no pain, but is very distressed. Her breathing is better. Objective - Vital Signs/Intake and Output Vital Signs (last 24 hours): Temp Pulse Resp BP Pulse Ox 97.8 F 65 20 130/85 98 11/04/18 08:15 11/04/18 08:15 11/04/18 08:15 11/04/18 08:15 11/04/18 08:15 - Medications Medications: Current Medications Acetaminophen/Butalbital/Caffeine (Fioricet) 1 tab PO Q4 PRN PRN Reason: Headache Last Admin: 11/04/18 02:54 Dose: 1 tab Docusate Sodium (Colace) 100 mg PO BID [facility] Last Admin: 11/04/18 09:42 Dose: 100 mg Famotidine (Pepcid) 20 mg IVP DAILY [facility] Last Admin: 11/03/18 13:38 Dose: 20 mg Sodium Chloride (Sodium Chloride 0.9%) 500 mls @ 90 mls/hr IV .Q5H34M [facility] Last Admin: 11/04/18 06:24 Dose: 90 mls/hr Gemcitabine HCl 2,325 mg/ (Sodium Chloride) 100 mls @ 0 mls/hr IV ONCE ONE Stop: 11/04/18 09:15 Sodium Chloride (Sodium Chloride 0.9%) 500 mls @ 80 mls/hr IV .Q6H15M [facility] Methimazole (Tapazole) 2.5 mg PO DAILY [facility] Last Admin: 11/04/18 09:43 Dose: 2.5 mg Morphine Sulfate (Morphine Extended Release Tab) 15 mg PO Q12 [facility] Last Admin: 11/03/18 22:17 Dose: 15 mg Morphine Sulfate (Morphine) 4 mg IVP Q3H PRN PRN Reason: pain 8-10 Last Admin: 11/04/18 09:22 Dose: 4 mg - Labs Labs: 10/30/18 08:00 10/30/18 08:00 PT 13.1 Seconds (9.8-13.1) 10/30/18 08:00 INR 1.2 10/30/18 08:00 APTT 33.9 Seconds (25.6-37.1) 10/30/18 08:00
[2018-11-04 10:46] LABS: BASO % 0.4 % (0.0-2.0); EOS % 0.1 % (0.0-4.0); HEMOGLOBIN 11.9 g/dL (12.0-16.0); LYMPH % 11.7 % (20.0-40.0); MEAN CELL VOLUME 85.8 fl (81.0-99.0); MEAN CORPUSCULAR HEMOGLOBIN 27.8 pg (27.0-31.0); MEAN CORPUSCULAR HGB CONC 32.4 g/dL (33.0-37.0); MEAN PLATELET VOLUME 8.6 fl (7.2-11.7); MONO # 0.4 K/uL (0.0-0.8); MONO % 4.4 % (0.0-10.0); NEUT # 7.3 K/uL (1.8-7.0); NEUT % 83.4 % (50.0-75.0); RBC 4.28 Mil/uL (3.80-5.20); RED CELL DISTRIBUTION WIDTH 14.3 % (11.5-14.5); WHITE BLOOD COUNT 8.7 K/uL (4.8-10.8)
[2018-11-04 11:00] LABS: ALB/GLOB RATIO 1.2 (1.0-2.1); ALBUMIN 3.8 g/dL (3.5-5.0); ALT/SGPT 68 U/L (9-52); AST/SGOT 87 U/L (14-36); BLOOD UREA NITROGEN 13 mg/dl (7-17); GFR NON-AFRICAN AMERICAN > 60
[2018-11-04] MEDS ORDERED: Sodium Chloride 0.9% 500 ML IV SCH (11:30)
[2018-11-04] MEDS ORDERED: GEMCITABINE IV ONE (11:30)
[2018-11-04] MEDS ORDERED: SODIUM CHLORIDE 0.9% IV ONE (11:30)
--- NOTE | 2018-11-04 12:39 | CT ---
PROCEDURE: Date of procedure:10/30/2018 Procedure: 1. Ultrasound-guided Right thoracentesis, CPT 18956 Medications: 5CC 1% Lidocaine HISTORY: Right pleural effusion, shortness of breath TECHNIQUE: Following informed consent ,the Patients' right chest was marked. Procedure time-out was called, and the patient was placed in the sitting position and limited ultrasound showed a SMALL right effusion. The patient's right back was prepped and draped in the usual sterile fashion. After the skin was anesthetized with lidocaine, a drainage catheter was advanced under ultrasound guidance into the pleural space. Ultrasound-guided thoracentesis was performed. A total of 450 cubic centimeters of straw-colored fluid removed without complication. A Xeroform dressing was applied. IMPRESSION: Ultrasound guided Right thoracentesis. There were no immediate complications.
--- NOTE | 2018-11-04 14:37 | CP.PCM.DIS ---
Provider - Provider Date of Admission: 10/29/18 18:49 Attending physician: Marvin Quiñones MD Primary care physician: NO FAMILY PROVIDER Consults: 10/30/18 07:51 Anesthesiology Consult Routine Comment: Consulting Provider: Siri Heard Consulting Physician: Siri Heard Reason for Consult: dx back pain 10/30/18 12:33 Cardiology Consult Routine Comment: Consulting Provider: Elkin Fitzpatrick Consulting Physician: Elkin Fitzpatrick Reason for Consult: Cardiac clearance for possible pleurodesis Physician Consult Routine Comment: Consulting Provider: Ezequiel Atwood Consulting Physician: Ezequiel Atwood Reason for Consult: For possible pleurodesis, repeated pleural effusions, lung mets 10/31/18 08:26 Hematology Oncology Consult Routine Comment: Consulting Provider: Randi Goodman Consulting Physician: Randi Goodman Reason for Consult: Breast ca with mets 11/01/18 16:32 Psychiatry Consult Routine Comment: Consulting Provider: Allan Traore Consulting Physician: Allan Traore Reason for Consult: Depression Diagnosis - Discharge Diagnosis (1) S/P thoracentesis Status: Acute (2) Lung metastasis Status: Acute Priority: High (3) Pleural effusion Status: Acute Priority: High (4) 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 Most Recent Lab Values WBC 8.7 K/uL (4.8-10.8) 11/04/18 10:20 RBC 4.28 Mil/uL (3.80-5.20) 11/04/18 10:20 Hgb 11.9 g/dL (12.0-16.0) L 11/04/18 10:20 Hct 36.7 % (34.0-47.0) 11/04/18 10:20 MCV 85.8 fl (81.0-99.0) 11/04/18 10:20 MCH 27.8 pg (27.0-31.0) 11/04/18 10:20 MCHC 32.4 g/dL (33.0-37.0) L 11/04/18 10:20 RDW 14.3 % (11.5-14.5) 11/04/18 10:20 Plt Count 267 K/uL (130-400) 11/04/18 10:20 MPV 8.6 fl (7.2-11.7) 11/04/18 10:20 Neut % (Auto) 83.4 % (50.0-75.0) H 11/04/18 10:20 Lymph % (Auto) 11.7 % (20.0-40.0) L 11/04/18 10:20 Lares % (Auto) 4.4 % (0.0-10.0) 11/04/18 10:20 Eos % (Auto) 0.1 % (0.0-4.0) 11/04/18 10:20 Baso % (Auto) 0.4 % (0.0-2.0) 11/04/18 10:20 Neut # (Auto) 7.3 K/uL (1.8-7.0) H 11/04/18 10:20 Lymph # (Auto) 1.0 K/uL (1.0-4.3) 11/04/18 10:20 Lares # (Auto) 0.4 K/uL (0.0-0.8) 11/04/18 10:20 Eos # (Auto) 0.0 K/uL (0.0-0.7) 11/04/18 10:20 Baso # (Auto) 0.0 K/uL (0.0-0.2) 11/04/18 10:20 PT 13.1 Seconds (9.8-13.1) 10/30/18 08:00 INR 1.2 10/30/18 08:00 APTT 33.9 Seconds (25.6-37.1) 10/30/18 08:00 Sodium 139 mmol/l (132-148) 11/04/18 10:20 Potassium 4.1 MMOL/L (3.6-5.0) 11/04/18 10:20 Chloride 105 mmol/L (98-107) 11/04/18 10:20 Carbon Dioxide 28 mmol/L (22-30) 11/04/18 10:20 Anion Gap 10 (10-20) 11/04/18 10:20 BUN 13 mg/dl (7-17) 11/04/18 10:20 Creatinine 0.7 mg/dl (0.7-1.2) 11/04/18 10:20 Est GFR ( Amer) > 60 11/04/18 10:20 Est GFR (Non-Af Amer) > 60 11/04/18 10:20 Random Glucose 117 mg/dL (65-105) H 11/04/18 10:20 Calcium 9.0 mg/dL (8.4-10.2) 11/04/18 10:20 Phosphorus 3.7 mg/dl (2.5-4.5) 11/04/18 10:20 Magnesium 2.2 MG/DL (1.6-2.3) 11/04/18 10:20 Total Bilirubin 0.6 mg/dl (0.2-1.3) 11/04/18 10:20 AST 87 U/L (14-36) H D 11/04/18 10:20 ALT 68 U/L (9-52) H 11/04/18 10:20 Alkaline Phosphatase 158 U/L (38-126) H 11/04/18 10:20 Total Protein 6.9 G/DL (6.3-8.2) 11/04/18 10:20 Albumin 3.8 g/dL (3.5-5.0) 11/04/18 10:20 Globulin 3.1 gm/dL (2.2-3.9) 11/04/18 10:20 Albumin/Globulin Ratio 1.2 (1.0-2.1) 11/04/18 10:20 Lipase 114 U/L (23-300) 10/29/18 13:25 Thyroxine (T4) 10.3 ug/dl (5.5-11.0) 10/30/18 08:00 TSH 3rd Generation 0.60 mIU/ML (0.46-4.68) 10/30/18 08:00 Discharge Exam - Head Exam Head Exam: NORMAL INSPECTION Discharge Plan - Discharge Medications Prescriptions: Letrozole [Femara] 2.5 mg PO DAILY #30 tab Morphine [Morphine Extended Release Tab] 15 mg PO Q12 #10 tabsr Morphine [Morphine Immediate Release Tab] 30 mg PO Q6 PRN #20 tab PRN Reason: Pain, Severe (8-10) - Follow Up Plan Condition: FAIR Disposition: HOME/ ROUTINE Referrals: Randi Goodman MD [Staff Provider] - FAMILY PROVIDER,NO [Primary Care Provider] -
[2018-11-04] MEDS: Morphine 15 mg SR Tab PO SCH ×2 (17:50→21:27)
--- NOTE | 2018-11-05 00:57 | CP.PCM.PN ---
Subjective - Date & Time of Evaluation Date of Evaluation: 11/04/18 Time of Evaluation: 11:10 - Subjective Subjective: PROGRESS NOTE FOR 11/04/18. F/U Metastatic Disease. s/p R Thoracentesis. No A/D, no c/o, had Chemo yesterday, no adverse effect Objective - Vital Signs/Intake and Output Vital Signs (last 24 hours): Temp Pulse Resp BP Pulse Ox 97.8 F 67 18 104/68 98 11/04/18 23:54 11/04/18 23:54 11/04/18 23:54 11/04/18 23:54 11/04/18 23:54 - Medications Medications: Current Medications Acetaminophen/Butalbital/Caffeine (Fioricet) 1 tab PO Q4 PRN PRN Reason: Headache Last Admin: 11/04/18 02:54 Dose: 1 tab Docusate Sodium (Colace) 100 mg PO BID [facility] Last Admin: 11/04/18 17:50 Dose: 100 mg Famotidine (Pepcid) 20 mg IVP DAILY [facility] Last Admin: 11/04/18 09:52 Dose: 20 mg Sodium Chloride (Sodium Chloride 0.9%) 500 mls @ 90 mls/hr IV .Q5H34M [facility] Last Admin: 11/04/18 22:24 Dose: 90 mls/hr Methimazole (Tapazole) 2.5 mg PO DAILY [facility] Last Admin: 11/04/18 09:43 Dose: 2.5 mg - Labs Labs: 11/04/18 10:20 11/04/18 10:20 PT 13.1 Seconds (9.8-13.1) 10/30/18 08:00 INR 1.2 10/30/18 08:00 APTT 33.9 Seconds (25.6-37.1) 10/30/18 08:00 - Constitutional Appears: No Acute Distress, Chronically Ill - Head Exam Head Exam: NORMAL INSPECTION - Eye Exam Eye Exam: PERRL - ENT Exam ENT Exam: Normal Exam - Neck Exam Neck Exam: Normal Inspection - Respiratory Exam Respiratory Exam: Chest Wall Tenderness (on R chest, minimal on palpation), Decreased Breath Sounds (R > L) - Cardiovascular Exam Cardiovascular Exam: REGULAR RHYTHM - GI/Abdominal Exam GI & Abdominal Exam: Soft, Normal Bowel Sounds - Extremities Exam Extremities Exam: Normal Inspection - Back Exam Back Exam: NORMAL INSPECTION - Neurological Exam Neurological Exam: Awake Additional comments: No focal motor/sensory deficit. 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 Continue Morphine, Pepcid, Sodium Chl and rest of Tx.
[2018-11-05] MEDS: Sodium Chloride 0.9% 500 ML IV SCH ×3 (01:10→23:00)
[2018-11-05] MEDS: Morphine 15 mg SR Tab PO SCH ×2 (09:11→20:08)
[2018-11-05] MEDS: methIMAzole 5 MG TAB PO SCH (10:12)
--- NOTE | 2018-11-05 12:12 | CP.PCM.PN ---
Subjective - Date & Time of Evaluation Date of Evaluation: 11/05/18 Time of Evaluation: 11:50 - Subjective Subjective: Pt received the 2nd dose of chemotherapy yesterday but after that ,has been nauseous and dizzy since. She is also very depressed and does not help with the physical therapy .I had a long talk with her re her helping herself and us if sh e wanted to get better. She also had some trouble with her veins and is willing to have a lifeport placed. Objective - Vital Signs/Intake and Output Vital Signs (last 24 hours): Temp Pulse Resp BP Pulse Ox 99.0 F 58 L 20 104/64 98 11/05/18 08:00 11/05/18 08:00 11/05/18 08:00 11/05/18 08:00 11/05/18 08:00 - Medications Medications: Current Medications Acetaminophen/Butalbital/Caffeine (Fioricet) 1 tab PO Q4 PRN PRN Reason: Headache Last Admin: 11/04/18 02:54 Dose: 1 tab Docusate Sodium (Colace) 100 mg PO BID [facility] Last Admin: 11/05/18 10:12 Dose: 100 mg Famotidine (Pepcid) 20 mg IVP DAILY [facility] Last Admin: 11/05/18 10:12 Dose: 20 mg Sodium Chloride (Sodium Chloride 0.9%) 500 mls @ 90 mls/hr IV .Q5H34M [facility] Last Admin: 11/05/18 05:48 Dose: Not Given Methimazole (Tapazole) 2.5 mg PO DAILY [facility] Last Admin: 11/05/18 10:12 Dose: 2.5 mg Morphine Sulfate (Morphine) 4 mg IVP Q3 PRN PRN Reason: Pain, severe (8-10) Morphine Sulfate (Morphine Extended Release Tab) 15 mg PO Q12 [facility] Last Admin: 11/05/18 09:11 Dose: 15 mg - Labs Labs: 11/04/18 10:20 11/04/18 10:20 PT 13.1 Seconds (9.8-13.1) 10/30/18 08:00 INR 1.2 10/30/18 08:00 APTT 33.9 Seconds (25.6-37.1) 10/30/18 08:00
--- NOTE | 2018-11-05 15:08 | PQF ---
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 SOB. Aggravated factor: Movements/ exercise. (1) Abdominal pain Status: Acute Priority: High The patient's Clinical Indicators include: --- Query created by: Afshan Toribio on 11/03/2018 11:01 AM Electronically signed by: Marvin Quiñones MD 11/05/2018 3:05 PM
--- NOTE | 2018-11-05 20:14 | CP.PCM.PN ---
Subjective - Date & Time of Evaluation Date of Evaluation: 11/05/18 Time of Evaluation: 10:40 - Subjective Subjective: F/U Metastatic Disease. s/p R Thoracentesis. C/O of generalized weakness, nausea post chemo, mild R chest wall pain with deep breathing and movement Objective - Vital Signs/Intake and Output Vital Signs (last 24 hours): Temp Pulse Resp BP Pulse Ox 98.1 F 72 19 105/68 96 11/05/18 16:14 11/05/18 16:14 11/05/18 16:14 11/05/18 16:14 11/05/18 16:14 - Medications Medications: Current Medications Acetaminophen/Butalbital/Caffeine (Fioricet) 1 tab PO Q4 PRN PRN Reason: Headache Last Admin: 11/04/18 02:54 Dose: 1 tab Docusate Sodium (Colace) 100 mg PO BID [facility] Last Admin: 11/05/18 17:58 Dose: 100 mg Famotidine (Pepcid) 20 mg IVP DAILY [facility] Last Admin: 11/05/18 10:12 Dose: 20 mg Sodium Chloride (Sodium Chloride 0.9%) 500 mls @ 90 mls/hr IV .Q5H34M [facility] Last Admin: 11/05/18 05:48 Dose: Not Given Methimazole (Tapazole) 2.5 mg PO DAILY [facility] Last Admin: 11/05/18 10:12 Dose: 2.5 mg Morphine Sulfate (Morphine) 4 mg IVP Q3 PRN PRN Reason: Pain, severe (8-10) Last Admin: 11/05/18 19:45 Dose: 4 mg Morphine Sulfate (Morphine Extended Release Tab) 15 mg PO Q12 [facility] Last Admin: 11/05/18 20:08 Dose: 15 mg - Labs Labs: 11/04/18 10:20 11/04/18 10:20 PT 13.1 Seconds (9.8-13.1) 10/30/18 08:00 INR 1.2 10/30/18 08:00 APTT 33.9 Seconds (25.6-37.1) 10/30/18 08:00 - Constitutional Appears: No Acute Distress, Chronically Ill - Head Exam Head Exam: NORMAL INSPECTION - Eye Exam Eye Exam: PERRL - ENT Exam ENT Exam: Normal Exam - Neck Exam Neck Exam: Normal Inspection - Respiratory Exam Respiratory Exam: Chest Wall Tenderness (minimal on R.), Decreased Breath Sounds (at bases R > L) - Cardiovascular Exam Cardiovascular Exam: REGULAR RHYTHM - GI/Abdominal Exam GI & Abdominal Exam: Soft, Normal Bowel Sounds - Extremities Exam Extremities Exam: Normal Inspection - Back Exam Back Exam: NORMAL INSPECTION - Neurological Exam Neurological Exam: Alert, Oriented x3 Additional comments: No focal motor/sensory deficit, generalized weakness - Psychiatric Exam Psychiatric exam: Depressed - Skin Skin Exam: Warm Assessment and Plan (1) S/P thoracentesis Status: Acute (2) Lung metastasis Status: Acute (3) Pleural effusion Status: Acute (4) 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
[2018-11-06] MEDS: Sodium Chloride 0.9% 500 ML IV SCH ×4 (01:38→20:38)
[2018-11-06] MEDS: Morphine 15 mg SR Tab PO SCH ×2 (09:51→20:35)
--- NOTE | 2018-11-06 09:54 | CP.PCM.PN ---
Subjective - Date & Time of Evaluation Date of Evaluation: 11/06/18 Time of Evaluation: 09:49 - Subjective Subjective: Pt is able to walk a few steps without getting short of breath. Her pain is fairly well controlled. She is to have the lifeport placed today, and will then be discharged.. She will come to the infusion center for a CBC on saturday and in 3 weeks for The next dose of chemotherapy is in 3 weeks.- Objective - Vital Signs/Intake and Output Vital Signs (last 24 hours): Temp Pulse Resp BP Pulse Ox 98.1 F 81 20 104/64 98 11/06/18 08:13 11/06/18 08:13 11/06/18 08:13 11/06/18 08:13 11/06/18 08:13 - Medications Medications: Current Medications Acetaminophen (Tylenol 325mg Tab) 650 mg PO Q6 PRN PRN Reason: Fever >100.4 F Acetaminophen/Butalbital/Caffeine (Fioricet) 1 tab PO Q4 PRN PRN Reason: Headache Last Admin: 11/04/18 02:54 Dose: 1 tab Docusate Sodium (Colace) 100 mg PO BID [facility] Last Admin: 11/05/18 17:58 Dose: 100 mg Famotidine (Pepcid) 20 mg IVP DAILY [facility] Last Admin: 11/05/18 10:12 Dose: 20 mg Sodium Chloride (Sodium Chloride 0.9%) 500 mls @ 90 mls/hr IV .Q5H34M [facility] Last Admin: 11/06/18 04:52 Dose: Not Given Methimazole (Tapazole) 2.5 mg PO DAILY [facility] Last Admin: 11/05/18 10:12 Dose: 2.5 mg Morphine Sulfate (Morphine) 4 mg IVP Q3 PRN PRN Reason: Pain, severe (8-10) Last Admin: 11/06/18 05:24 Dose: 4 mg Morphine Sulfate (Morphine Extended Release Tab) 15 mg PO Q12 [facility] Last Admin: 11/05/18 20:08 Dose: 15 mg - Labs Labs: 11/04/18 10:20 11/04/18 10:20 PT 13.1 Seconds (9.8-13.1) 10/30/18 08:00 INR 1.2 10/30/18 08:00 APTT 33.9 Seconds (25.6-37.1) 10/30/18 08:00
[2018-11-06] MEDS: methIMAzole 5 MG TAB PO SCH (09:55)
[2018-11-06] MEDS ORDERED: Lidocaine 1% w Epi 1:100,000 Inj ONE (11:01)
[2018-11-06] MEDS ORDERED: Lidocaine 1% Inj (20ml) ONE (11:01)
[2018-11-06] MEDS ORDERED: Midazolam 2 MG/2 ML VIAL ONE (11:08)
[2018-11-06] MEDS ORDERED: HYDROmorphone 0.5 mg/0.5 ml ISec IVP PRN (12:06)
--- NOTE | 2018-11-06 12:06 | PCM.SURG1 ---
Surgeon's Initial Post Op Note - Surgeon's Notes Surgeon: Antwon Metz MD Automotive Parts Clerk: NONE Type of Anesthesia: IV Sedation Pre-Operative Diagnosis: Breast cancer Operative Findings: US showed a patent left iJV Post-Operative Diagnosis: Breast cancer Operation Performed: Port placement left neck Specimen/Specimens Removed: none Estimated Blood Loss: EBL {In ML}: 5 Blood Products Given: N/A Drains Used: No Drains Post-Op Condition: Fair Date of Surgery/Procedure: 11/06/18 Time of Surgery/Procedure: 12:05
--- NOTE | 2018-11-06 12:30 | VASCULAR ---
PROCEDURE: Date of procedure: 11/06/2018 Procedure: 1. Placement of a left IJ port catheter with ultrasound and fluoroscopic guidance, CPT 04703 2. Catheter tip confirmation with spot radiograph in the superior vena cava. Medications: The patient was sedated anesthesiologist along with monitoring, Ancef 1 gm, Lidocaine 1% w Epinephrine. Fluoroscopic time: 11.9 Seconds Radiation: 1.81 MGy Blood loss: 5 cc HISTORY: Breast cancer requiring port for chemotherapy TECHNIQUE: Following informed consent the procedure time-out, the patient was placed supine on the interventional table and the patient's left neck and chest were prepped and draped in the usual sterile fashion. Ultrasound showed a compressible left internal jugular vein. After the patient was sedated by the anesthesiologist, the skin was anesthetized with 1% lidocaine with epinephrine. Under direct ultrasound guidance, the left internal jugular vein was accessed with micropuncture technique. A guidewire was then advanced under fluoroscopic guidance into the superior vena cava. An image documenting ultrasound guidance for vascular access was permanently saved. The subcutaneous tissue of patient left chest was infiltrated with 1 percent lidocaine with epinephrine. A dermatotomy was made with a 15. Scalpel. The port pocket was then created with blunt dissection using a Dariela clamp. The port pocket was flushed. A port catheter was then tunneled under the skin and out the venotomy site. The port catheter was flushed, advanced through a peel-away sheath, adjusted for length, and attached to the port. The port was placed in the port pocket and was secured with 2-0 SurgiPro sutures. The port was flushed and locked with heparin. The port pocket was then closed with absorbable 4-0 Vicryl sutures. The port pocket and the venotomy site were reprepped with ChloraPrep. Steri-Strips were then applied to the port incision also venotomy site. A sterile dressing was then applied. Final spot radiograph showed the left IJ port catheter with tip of the port catheter in the superior vena cava. A port is functional and ready for use. IMPRESSION: Placement of left IJ port catheter. Tip of the port is confirmed with fluoroscopic image and is in superior vena cava. The port is functional and can be used.
[2018-11-06 15:02] LABS: ABG ALLEN TEST YES; ARTERIAL BLOOD GAS HCO3 24.9 mmol/L (21-28); ARTERIAL BLOOD GAS HEMOGLOBIN 11.2 g/dL (11.7-17.4); ARTERIAL BLOOD GAS O2 CAPACITY 14.9 mL/dL (16-24); ARTERIAL BLOOD GAS O2 CONTENT 14.3 ML/dL (15-23); ARTERIAL BLOOD GAS O2 SAT 95.9 % (95-98); ARTERIAL BLOOD GAS PCO2 39 mm/Hg (35-45); ARTERIAL BLOOD GAS PH 7.41 (7.35-7.45); ARTERIAL BLOOD GAS PO2 58 mm/Hg (80-100); ARTERIAL BLOOD GAS TCO2 25.9 mmol/L (22-28)
--- NOTE | 2018-11-06 15:45 | CP.PCM.PN ---
Subjective - Date & Time of Evaluation Date of Evaluation: 11/06/18 Time of Evaluation: 13:00 - Subjective Subjective: F/.U Metastatic Disease, s/p R Thoracentesis Objective - Vital Signs/Intake and Output Vital Signs (last 24 hours): Temp Pulse Resp BP Pulse Ox 98.1 F 77 18 95/62 L 97 11/06/18 13:10 11/06/18 13:10 11/06/18 13:10 11/06/18 13:10 11/06/18 13:10 - Medications Medications: Current Medications Acetaminophen (Tylenol 325mg Tab) 650 mg PO Q6 PRN PRN Reason: Fever >100.4 F Acetaminophen/Butalbital/Caffeine (Fioricet) 1 tab PO Q4 PRN PRN Reason: Headache Last Admin: 11/04/18 02:54 Dose: 1 tab Docusate Sodium (Colace) 100 mg PO BID [facility] Last Admin: 11/06/18 09:54 Dose: 100 mg Famotidine (Pepcid) 20 mg IVP DAILY [facility] Last Admin: 11/06/18 09:54 Dose: 20 mg Sodium Chloride (Sodium Chloride 0.9%) 500 mls @ 90 mls/hr IV .Q5H34M [facility] Last Admin: 11/06/18 14:27 Dose: 90 mls/hr Methimazole (Tapazole) 2.5 mg PO DAILY [facility] Last Admin: 11/06/18 09:55 Dose: 2.5 mg Morphine Sulfate (Morphine) 4 mg IVP Q3 PRN PRN Reason: Pain, severe (8-10) Last Admin: 11/06/18 14:26 Dose: 4 mg Morphine Sulfate (Morphine Extended Release Tab) 15 mg PO Q12 [facility] Last Admin: 11/06/18 09:51 Dose: 15 mg - Labs Labs: 11/04/18 10:20 11/04/18 10:20 PT 13.1 Seconds (9.8-13.1) 10/30/18 08:00 INR 1.2 10/30/18 08:00 APTT 33.9 Seconds (25.6-37.1) 10/30/18 08:00 - Constitutional Appears: No Acute Distress, Chronically Ill - Head Exam Head Exam: NORMAL INSPECTION - Eye Exam Eye Exam: PERRL - ENT Exam ENT Exam: Normal Exam - Neck Exam Neck Exam: Normal Inspection - Respiratory Exam Respiratory Exam: Chest Wall Tenderness (minimal on right ), Decreased Breath Sounds (at bases R > L) - Cardiovascular Exam Cardiovascular Exam: REGULAR RHYTHM - GI/Abdominal Exam GI & Abdominal Exam: Soft, Normal Bowel Sounds - Extremities Exam Extremities Exam: Normal Inspection - Back Exam Back Exam: NORMAL INSPECTION - Neurological Exam Neurological Exam: Alert, Oriented x3 Additional comments: No focal motor/sensory deficit. Generalized weakness - Psychiatric Exam Psychiatric exam: Depressed - Skin Skin Exam: Warm Assessment and Plan (1) S/P thoracentesis Status: Acute (2) Lung metastasis Status: Acute (3) Pleural effusion Assessment & Plan: Pneumonia is ruled out and abdominal pain is referred pain from rt chest wall and metastatic CA. 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
[2018-11-07] MEDS: Sodium Chloride 0.9% 500 ML IV SCH ×2 (02:26→05:26)
[2018-11-07 07:44] VITALS: RESP 20; O2SAT 97
--- NOTE | 2018-11-07 07:45 | CP.PCM.PN ---
Subjective - Date & Time of Evaluation Date of Evaluation: 11/07/18 Time of Evaluation: 07:41 - Subjective Subjective: Pt slept well, but is complaining of pain at the new port site. No edema or signs of infection. She tried to walk yesterday but her O2 sat dropped and she went back to bed. Will d/c the iv morphine and use the immediate release morphine po 15 mg q 4 h,prn for pain. Objective - Vital Signs/Intake and Output Vital Signs (last 24 hours): Temp Pulse Resp BP Pulse Ox 99.1 F 89 18 107/70 98 11/06/18 23:38 11/06/18 23:38 11/06/18 23:38 11/06/18 23:38 11/06/18 23:38 - Medications Medications: Current Medications Acetaminophen (Tylenol 325mg Tab) 650 mg PO Q6 PRN PRN Reason: Fever >100.4 F Acetaminophen/Butalbital/Caffeine (Fioricet) 1 tab PO Q4 PRN PRN Reason: Headache Last Admin: 11/04/18 02:54 Dose: 1 tab Docusate Sodium (Colace) 100 mg PO BID [facility] Last Admin: 11/06/18 17:48 Dose: 100 mg Famotidine (Pepcid) 20 mg IVP DAILY [facility] Last Admin: 11/06/18 09:54 Dose: 20 mg Sodium Chloride (Sodium Chloride 0.9%) 500 mls @ 90 mls/hr IV .Q5H34M [facility] Last Admin: 11/07/18 05:26 Dose: 90 mls/hr Methimazole (Tapazole) 2.5 mg PO DAILY [facility] Last Admin: 11/06/18 09:55 Dose: 2.5 mg Morphine Sulfate (Morphine Extended Release Tab) 15 mg PO Q12 [facility] Last Admin: 11/06/18 20:35 Dose: 15 mg - Labs Labs: 11/04/18 10:20 11/04/18 10:20 PT 13.1 Seconds (9.8-13.1) 10/30/18 08:00 INR 1.2 10/30/18 08:00 APTT 33.9 Seconds (25.6-37.1) 10/30/18 08:00
[2018-11-07] MEDS: Morphine 15 mg SR Tab PO SCH (08:45)
[2018-11-07] MEDS: methIMAzole 5 MG TAB PO SCH (08:47)
[2018-11-07] MEDS: Morphine 15 mg Immediate Release Tab PO PRN ×3 (08:52→17:25)
[2018-11-07 13:11] LABS: ABG ALLEN TEST YES; ARTERIAL BLOOD GAS HCO3 22.5 mmol/L (21-28); ARTERIAL BLOOD GAS HEMOGLOBIN 11.2 g/dL (11.7-17.4); ARTERIAL BLOOD GAS O2 CAPACITY 15.2 mL/dL (16-24); ARTERIAL BLOOD GAS O2 CONTENT 14.4 ML/dL (15-23); ARTERIAL BLOOD GAS O2 SAT 94.6 % (95-98); ARTERIAL BLOOD GAS PCO2 32 mm/Hg (35-45); ARTERIAL BLOOD GAS PH 7.42 (7.35-7.45); ARTERIAL BLOOD GAS PO2 60 mm/Hg (80-100); ARTERIAL BLOOD GAS TCO2 21.8 mmol/L (22-28)
--- NOTE | 2018-11-07 14:32 | PQF ---
PROVIDER RESPONSE TEXT: Pneumonia is ruled out. Abdominal Pain is referred pain from the right chest wall and lung metastatic CA. REVIEWER QUERY TEXT: Clarification of Clinical Diagnostic Findings Physician?s Documentation Request This Form is Not a Permanent Document in the Medical Record Pt Name: KHOA SUTTON MR #: [id number] Payor: MEDICAID [id number] Adm Date: 10/29/2018 6:49:00 PM Reviewer: Afshan Toribio Ext. Query Date: 11/06/2018 8:38:00 AM Clarification of Clinical Diagnostic Findings [id number] By submitting this query, we are merely seeking further clarification of documentation to accurately reflect all conditions that you are monitoring, evaluating, treating or that extend the hospitalizati on or utilize additional resources of care. Please utilize your independent clinical judgment when ad dressing the question(s) below. Dear Doctor Marvin Quiñones, The patient?s Clinical Indicators include: -- Pneumonia is listed in the H and P and not listed in the follow up progress notes: Piperacillin and V ancomycin IV received on 10/29. Is Pneumonia ruled in or ruled out? -Other explanation of clinical finding 10/29 CXR: Impression: Worsening presumable right lower lobe pneumonia.Interval development of discoi d atelectasis in the right mid lung.Small right pleural effusion 10/30: CXR:Possible very small left pleural effusion.Otherwise unremarkable. 11/02: CXR:Stable bibasilar patchy infiltrates and stable small left pleural effusion. ER note: MDM includes: CXR: Worsening presumable right lower lobe pneumonia 10/30 Pain MD: consult includes:Assessment: Breast CA with metastasis, pneumonia and back pain H and P: includes: HPI:CXR: RLL PNA.Pleural effusion. PLEASE DOCUMENT ANY ADDITIONAL DIAGNOSES AND/OR SPECIFICITY IN THE PROGRESS NOTES AND/OR DISCHARGE [facility]. Clinically unable to determine/unknown Disagree with the above request Need to discuss Query created by: Afshan Toribio on 11/06/2018 8:38 AM Electronically signed by: Marvin Quiñones MD 11/07/2018 2:29 PM
--- NOTE | 2018-11-07 15:41 | CP.PCM.DIS ---
Provider - Provider Date of Admission: 10/29/18 18:49 Attending physician: Marvin Quiñones MD Primary care physician: NO FAMILY PROVIDER Consults: 10/30/18 07:51 Anesthesiology Consult Routine Comment: Consulting Provider: Siri Heard Consulting Physician: Siri Heard Reason for Consult: dx back pain 10/30/18 12:33 Cardiology Consult Routine Comment: Consulting Provider: Elkin Fitzpatrick Consulting Physician: Elkin Fitzpatrick Reason for Consult: Cardiac clearance for possible pleurodesis Physician Consult Routine Comment: Consulting Provider: Ezequiel Atwood Consulting Physician: Ezequiel Atwood Reason for Consult: For possible pleurodesis, repeated pleural effusions, lung mets 10/31/18 08:26 Hematology Oncology Consult Routine Comment: Consulting Provider: Randi Goodman Consulting Physician: Randi Goodman Reason for Consult: Breast ca with mets 11/01/18 16:32 Psychiatry Consult Routine Comment: Consulting Provider: Allan Traore Consulting Physician: Allan Traore Reason for Consult: Depression Diagnosis - Discharge Diagnosis (1) S/P thoracentesis Status: Acute (2) Lung metastasis Status: Acute Priority: High (3) Pleural effusion Status: Acute Priority: High (4) 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 Most Recent Lab Values WBC 8.7 K/uL (4.8-10.8) 11/04/18 10:20 RBC 4.28 Mil/uL (3.80-5.20) 11/04/18 10:20 Hgb 11.9 g/dL (12.0-16.0) L 11/04/18 10:20 Hct 36.7 % (34.0-47.0) 11/04/18 10:20 MCV 85.8 fl (81.0-99.0) 11/04/18 10:20 MCH 27.8 pg (27.0-31.0) 11/04/18 10:20 MCHC 32.4 g/dL (33.0-37.0) L 11/04/18 10:20 RDW 14.3 % (11.5-14.5) 11/04/18 10:20 Plt Count 267 K/uL (130-400) 11/04/18 10:20 MPV 8.6 fl (7.2-11.7) 11/04/18 10:20 Neut % (Auto) 83.4 % (50.0-75.0) H 11/04/18 10:20 Lymph % (Auto) 11.7 % (20.0-40.0) L 11/04/18 10:20 [place] % (Auto) 4.4 % (0.0-10.0) 11/04/18 10:20 Eos % (Auto) 0.1 % (0.0-4.0) 11/04/18 10:20 Baso % (Auto) 0.4 % (0.0-2.0) 11/04/18 10:20 Neut # (Auto) 7.3 K/uL (1.8-7.0) H 11/04/18 10:20 Lymph # (Auto) 1.0 K/uL (1.0-4.3) 11/04/18 10:20 [place] # (Auto) 0.4 K/uL (0.0-0.8) 11/04/18 10:20 Eos # (Auto) 0.0 K/uL (0.0-0.7) 11/04/18 10:20 Baso # (Auto) 0.0 K/uL (0.0-0.2) 11/04/18 10:20 PT 13.1 Seconds (9.8-13.1) 10/30/18 08:00 INR 1.2 10/30/18 08:00 APTT 33.9 Seconds (25.6-37.1) 10/30/18 08:00 pCO2 32 mm/Hg (35-45) L 11/07/18 11:35 pO2 60 mm/Hg (80-100) L 11/07/18 11:35 HCO3 22.5 mmol/L (21-28) 11/07/18 11:35 ABG pH 7.42 (7.35-7.45) 11/07/18 11:35 ABG Total CO2 21.8 mmol/L (22-28) L 11/07/18 11:35 ABG O2 Saturation 94.6 % (95-98) L 11/07/18 11:35 ABG O2 Content 14.4 ML/dL (15-23) L 11/07/18 11:35 ABG Base Excess -3.0 mmol/L (-2.0-3.0) L 11/07/18 11:35 ABG Hemoglobin 11.2 g/dL (11.7-17.4) L 11/07/18 11:35 ABG Carboxyhemoglobin 2.4 % (0.5-1.5) H 11/07/18 11:35 POC ABG HHb (Measured) 5.2 % (0.0-5.0) H 11/07/18 11:35 ABG Methemoglobin 1.1 % (0.0-3.0) 11/07/18 11:35 ABG O2 Capacity 15.2 mL/dL (16-24) L 11/07/18 11:35 Brett Test Yes 11/07/18 11:35 A-a O2 Difference 50.0 mm/Hg 11/07/18 11:35 Hgb O2 Saturation 91.3 % (95.0-98.0) L 11/07/18 11:35 FiO2 21.0 % 11/07/18 11:35 Blood Gas Comments Rroomm air 11/07/18 11:35 Crit Value Read Back N 11/07/18 11:35 Sodium 139 mmol/l (132-148) 11/04/18 10:20 Potassium 4.1 MMOL/L (3.6-5.0) 11/04/18 10:20 Chloride 105 mmol/L (98-107) 11/04/18 10:20 Carbon Dioxide 28 mmol/L (22-30) 11/04/18 10:20 Anion Gap 10 (10-20) 11/04/18 10:20 BUN 13 mg/dl (7-17) 11/04/18 10:20 Creatinine 0.7 mg/dl (0.7-1.2) 11/04/18 10:20 Est GFR ( Amer) > 60 11/04/18 10:20 Est GFR (Non-Af Amer) > 60 11/04/18 10:20 POC Glucose (mg/dL) 112 mg/dL (65-110) H 11/06/18 05:16 Random Glucose 117 mg/dL (65-105) H 11/04/18 10:20 Calcium 9.0 mg/dL (8.4-10.2) 11/04/18 10:20 Phosphorus 3.7 mg/dl (2.5-4.5) 11/04/18 10:20 Magnesium 2.2 MG/DL (1.6-2.3) 11/04/18 10:20 Total Bilirubin 0.6 mg/dl (0.2-1.3) 11/04/18 10:20 AST 87 U/L (14-36) H D 11/04/18 10:20 ALT 68 U/L (9-52) H 11/04/18 10:20 Alkaline Phosphatase 158 U/L (38-126) H 11/04/18 10:20 Total Protein 6.9 G/DL (6.3-8.2) 11/04/18 10:20 Albumin 3.8 g/dL (3.5-5.0) 11/04/18 10:20 Globulin 3.1 gm/dL (2.2-3.9) 11/04/18 10:20 Albumin/Globulin Ratio 1.2 (1.0-2.1) 11/04/18 10:20 Lipase 114 U/L (23-300) 10/29/18 13:25 Thyroxine (T4) 10.3 ug/dl (5.5-11.0) 10/30/18 08:00 TSH 3rd Generation 0.60 mIU/ML (0.46-4.68) 10/30/18 08:00 Discharge Exam - Head Exam Head Exam: NORMAL INSPECTION Discharge Plan - Discharge Medications Prescriptions: Letrozole [Femara] 2.5 mg PO DAILY #30 tab Morphine [Morphine Extended Release Tab] 15 mg PO Q12 #10 tabsr Morphine [Morphine Immediate Release Tab] 30 mg PO Q6 PRN #20 tab PRN Reason: Pain, Severe (8-10) - Follow Up Plan Condition: FAIR Disposition: HOME/ ROUTINE Instructions: Pleural Effusion, Portacath (DC), Gemcitabine, Paclitaxel (Conventional) Additional Instructions: For Blood work ON Saturday- , Return to Infusion for chemo as instructed in 3 weeks Tele Phone number of Infusion center- [phone] Referrals: Randi Goodman MD [Staff Provider] - FAMILY PROVIDER,NO [Primary Care Provider] -
[2018-11-07 15:51] VITALS: BP 99/63; PULSE 91; TEMP 99.2
== END 2018-11-07 18:00 | disposition home health service (06) | DRG 82 ==
LOC: H.ER 12:25 → H.ERHOLD 18:49 → H.MEDSURG1 20:17
PROVIDERS: ADMIT Internal Medicine Pulmonary Disease; ATTEND Internal Medicine Pulmonary Disease
PROC: 3E03305 Introduction of Other Antineoplastic into Peripheral Vein, Percutaneous Approach (ICD-10-PCS; 2018-11-03)
PROC: 0W993ZZ Drainage of Right Pleural Cavity, Percutaneous Approach (ICD-10-PCS; principal; 2018-11-04)
PROC: 02HV33Z Insertion of Infusion Device into Superior Vena Cava, Percutaneous Approach (ICD-10-PCS; 2018-11-06)
PROC: B518ZZA Fluoroscopy of Superior Vena Cava, Guidance (ICD-10-PCS; 2018-11-06)
PROC: B548ZZA Ultrasonography of Superior Vena Cava, Guidance (ICD-10-PCS; 2018-11-06)
DX: C78.01 Secondary malignant neoplasm of right lung (principal); C79.89 Secondary malignant neoplasm of other specified sites; C79.51 Secondary malignant neoplasm of bone; J91.0 Malignant pleural effusion; F43.21 Adjustment disorder with depressed mood; E03.9 Hypothyroidism, unspecified; E78.5 Hyperlipidemia, unspecified; E78.00 Pure hypercholesterolemia, unspecified; F41.9 Anxiety disorder, unspecified; Z85.3 Personal history of malignant neoplasm of breast; Z90.11 Acquired absence of right breast and nipple; Z92.21 Personal history of antineoplastic chemotherapy; Z92.3 Personal history of irradiation; Z79.811 Long term (current) use of aromatase inhibitors

== ENCOUNTER 2018-11-08 10:28 | Inpatient (IN) | payer OTHER ==
[2018-11-08 10:30] VITALS: BMI 27.4
[2018-11-08] MEDS ORDERED: Sodium Chloride 0.9% 1,000 ML IV STA (10:38)
--- NOTE | 2018-11-08 10:49 | ED PDOC ---
HPI: Abdomen Time Seen by Provider: 11/08/18 10:33 Chief Complaint (Nursing): GI Problem Chief Complaint (Provider): dehydration from s/p chemo History Per: Patient History/Exam Limitations: no limitations Onset/Duration Of Symptoms: Days (2) Current Symptoms Are (Timing): Still Present Quality Of Discomfort: "Pain" Associated Symptoms: Nausea, Vomiting, Diarrhea Additional Complaint(s): 58 year old female with hypercholesterolemia and breast cancer presents to the ED for an evaluation of nausea, vomiting, abdominal pain onset for 2 days. Patient is not able to tolerate PO and had one episode of diarrhea. Otherwise, she denies fever. Patient is status post chemo since Saturday for breast cancer. PMD: Malik Swanson Past Medical History Reviewed: Historical Data, Nursing Documentation, Vital Signs Vital Signs: Last Vital Signs Temp 99 F 11/08/18 10:28 Pulse 87 11/08/18 10:28 Resp 18 11/08/18 10:28 BP 138/82 11/08/18 10:28 Pulse Ox 96 11/08/18 10:28 - Medical History PMH: Anxiety, Hypercholesterolemia, Hyperlipidemia, Hyperthyroidism, Malignancy (breast cancer, diagnosed 2012) Denies: HIV, Chronic Kidney Disease - Family History Family History: States: Unknown Family Hx - Social History Current smoker - smoking cessation education provided: No Alcohol: None Drugs: Denies - Home Medications Home Medications: Ambulatory Orders Medication Instructions Recorded methIMAzole [Tapazole] 2.5 mg PO DAILY 09/18/18 Docusate [Colace] 100 mg PO BID #60 cap 09/24/18 Letrozole [Femara] 2.5 mg PO DAILY #30 tab 11/04/18 Morphine [Morphine Extended 15 mg PO Q12 #10 tabsr 11/04/18 Release Tab] Morphine [Morphine Immediate 30 mg PO Q6 PRN #20 tab 11/04/18 Release Tab] - Allergies Allergies/Adverse Reactions: Allergies Allergy/AdvReac Type Severity Reaction Status Date / Time No Known Allergies Allergy Verified 11/08/18 10:38 Review of Systems ROS Statement: Except As Marked, All Systems Reviewed And Found Negative Constitutional: Negative for: Fever Gastrointestinal: Positive for: Nausea, Vomiting, Abdominal Pain, Diarrhea Physical Exam - Reviewed Nursing Documentation Reviewed: Yes Vital Signs Reviewed: Yes - Physical Exam Appears: Positive for: Well, Non-toxic, No Acute Distress Head Exam: Positive for: ATRAUMATIC, NORMAL INSPECTION, NORMOCEPHALIC Skin: Positive for: Normal Color, Warm, DRY Eye Exam: Positive for: EOMI, Normal appearance, PERRL ENT: Positive for: Other (mucous membrane dry ) Neck: Positive for: Normal, Painless ROM Cardiovascular/Chest: Positive for: Regular Rate, Rhythm. Negative for: Murmur Respiratory: Positive for: Normal Breath Sounds. Negative for: Respiratory Dist ress Gastrointestinal/Abdominal: Positive for: Normal Exam, Bowel Sounds, Soft, Other. Negative for: Tenderness Back: Positive for: Normal Inspection Extremity: Positive for: Normal ROM. Negative for: Tenderness, Deformity Neurological/Psych: Positive for: Awake, Alert, Normal Tone, Oriented (x3) - Laboratory Results Result Diagrams: 11/08/18 11:21 - ECG O2 Sat by Pulse Oximetry: 96 (RA) Pulse Ox Interpretation: Normal Medical Decision Making Medical Decision Making: Time: 10:37 A/P: patient dehydrated from s/p chemo. Will hydrate patient, give antiemetics and pain medication Plan: CMP CBC w/ differential Chest two views [RAD] Morphine 2mg Normal saline 200 mls/hr Pepcid 20mg Zofran 4mg Reevaluation Scribe Attestation: Documented by Katharine Smyth, acting as a scribe for Bernard Alexis MD Provider Scribe Attestation: All medical record entries made by the Scribe were at my direction and personally dictated by me. I have reviewed the chart and agree that the record accurately reflects my personal performance of the history, physical exam, medical decision making, and the department course for this patient. I have also personally directed, reviewed, and agree with the discharge instructions and disposition. Disposition - Clinical Impression Clinical Impression: Breast cancer, Pleural effusion, Intractable pain - Patient ED Disposition Is Patient to be Admitted: Yes - Disposition Disposition Time: 12:08 Condition: FAIR Forms: [employer] ([place]) - Pt Status Changed To: Hospital Disposition Of: Inpatient - Admit Certification Admit to Inpatient:: After my assessment, the patient will require hospitalization for at least two midnights. This is because of the severity of symptoms shown, intensity of services needed, and/or the medical risk in this patient being treated as an outpatient. - POA Present On Arrival: None
[2018-11-08 11:38] LABS: ALB/GLOB RATIO 1.1 (1.0-2.1); ALBUMIN 3.8 g/dL (3.5-5.0); ALT/SGPT 119 U/L (9-52); AST/SGOT 131 U/L (14-36); BLOOD UREA NITROGEN 9 mg/dl (7-17); CALCIUM 8.8 mg/dL (8.4-10.2); GFR NON-AFRICAN AMERICAN > 60
--- NOTE | 2018-11-08 12:07 | RAD ---
Date of service: 11/08/2018 HISTORY: cough COMPARISON: 11/02/2018 TECHNIQUE: 1 view obtained. FINDINGS: LUNGS: Since the prior examination there has been interval development of mild to moderate-sized right pleural effusion and atelectasis at the right lung base. Vasculature appears to be mildly congested. Left Port-A-Cath is unchanged. Heart is mildly enlarged. Minimal left pleural fluid is not excluded. PLEURA: See above. CARDIOVASCULAR: No significant aortic atherosclerotic calcification present. Heart is mildly enlarged. OSSEOUS STRUCTURES: No significant abnormalities. VISUALIZED UPPER ABDOMEN: Normal. OTHER FINDINGS: None. IMPRESSION: Development of right pleural effusion and atelectasis and/or infiltrate at the right lung base. Mild increased vascularity is also suspected.
[2018-11-08 12:14] LABS: BASO % 0.9 % (0.0-2.0); EOS % 0.3 % (0.0-4.0); HEMOGLOBIN 11.1 g/dL (12.0-16.0); LYMPH # 0.3 K/uL (1.0-4.3); LYMPH % 16.5 % (20.0-40.0); MEAN CELL VOLUME 85.6 fl (81.0-99.0); MEAN CORPUSCULAR HEMOGLOBIN 27.7 pg (27.0-31.0); MEAN CORPUSCULAR HGB CONC 32.3 g/dL (33.0-37.0); MEAN PLATELET VOLUME 9.2 fl (7.2-11.7); MONO % 1.2 % (0.0-10.0); NEUT # 1.6 K/uL (1.8-7.0); NEUT % 81.1 % (50.0-75.0); NRBC % 0.2 % (0.0-0.0); PLATELET COUNT 168 K/uL (130-400); RBC 3.99 Mil/uL (3.80-5.20); RED CELL DISTRIBUTION WIDTH 14.2 % (11.5-14.5)
[2018-11-08] MEDS ORDERED: Morphine 4 MG/ML VIAL ONE (12:30)
[2018-11-08 12:59] LABS: BANDS 1 % (0-2); EOSINOPHIL 1 % (0-7); LYMPHOCYTE 16 % (20-50); MONOCYTE 2 % (0-10); NEUTROPHIL 80 % (42-75); PLATELET ESTIMATE NORMAL (NORMAL); TOTAL CELLS COUNTED 100
[2018-11-08 13:01] LABS: ANISOCYTOSIS SLIGHT; BURR CELLS SLIGHT; GIANT PLATELETS PRESENT; LARGE PLATELETS PRESENT; POIKILOCYTOSIS SLIGHT
--- NOTE | 2018-11-08 14:39 | CP.PCM.HP ---
History of Present Illness - History of Present Illness History of Present Illness: CC: Abdominal pain. 58 y/o F, with Hx of Breast Ca s/p chemo since Saturday and with multiple Metastatic Ca, s/p R thoracentesis on 10/30. DD on 11/07. Pt was brought to [facility] on 11/08/18 via EMS to be evaluated for abdominal pain, described as generalized, but more prominent to epigastric area, diffused, severe intensity 10:10 with no relief from day [employer], associated to the chemo with nausea, vomiting NBNB, diarrhea. Worsening symptoms: Weaknesses, CXR 11/08/18 recurrent R Pleural effusion, WBC 2.0 Aggravated factor: Food/ movements/exercise. Pt denied: Fever, chills, SOB, cough, CP, palpitation, syncope, urinary symptoms, sick contact. Present on Admission - Present on Admission Any Indicators Present on Admission: No Review of Systems - Constitutional Constitutional: Weakness (generalized) - EENT Eyes: Other (negative) Ears: Other (negative) Nose/Mouth/Throat: Other (negative) - Cardiovascular Cardiovascular: Other (negative) - Respiratory Respiratory: Other (negative) - Gastrointestinal Gastrointestinal: Abdominal Pain, Diarrhea, Nausea, Vomiting - Genitourinary Genitourinary: Other (negative) - Musculoskeletal Musculoskeletal: Muscle Weakness - Integumentary Integumentary: Other (negative) - Neurological Neurological: Other (negative) - Psychiatric Psychiatric: Anxiety - Endocrine Endocrine: Other (negative) - Hematologic/Lymphatic Hematologic: Other (negative) Past Patient History - Infectious Disease Hx of Infectious Diseases: None - Past Medical History & Family History Past Medical History?: Yes Pertinent Family History: Unknown - Past Social History Smoking Status: Never Smoked Alcohol: None Drugs: Denies Home Situation {Lives}: Alone - CARDIAC Hx Cardiac Disorders: Yes Hx Hypercholesterolemia: Yes - PULMONARY Hx Respiratory Disorders: Yes (Pleural effusion.) Hx Lung Cancer: Yes ((Metastasis)) Other/Comment: metastasis R Chest wall, recurrent R Pleural effusion malignant - NEUROLOGICAL Hx Neurological Disorder: No - HEENT Hx HEENT Problems: No - RENAL Hx Chronic Kidney Disease: No - ENDOCRINE/METABOLIC Hx Endocrine Disorders: Yes Hx Hyperthyroidism: Yes - HEMATOLOGICAL/ONCOLOGICAL Hx Blood Disorders: Yes Hx Cancer: Yes Hx Chemotherapy: Yes Hx Human Immunodeficiency Virus (HIV): No Other/Comment: Breast Ca with metastasis - INTEGUMENTARY Hx Dermatological Problems: No - MUSCULOSKELETAL/RHEUMATOLOGICAL Hx Musculoskeletal Disorders: No Hx Falls: No - GASTROINTESTINAL Hx Gastrointestinal Disorders: No - GENITOURINARY/GYNECOLOGICAL Hx Genitourinary Disorders: No - PSYCHIATRIC Hx Psychophysiologic Disorder: Yes Hx Anxiety: Yes - SURGICAL HISTORY Hx Surgeries: Yes Hx Mastectomy: Yes (right total mastectomy with axillary dissection) Hx Tubal Ligation: Yes Hx Vascular Access Device: Yes (chemoport) - ANESTHESIA Hx Anesthesia: Yes Hx Anesthesia Reactions: No Hx Malignant Hyperthermia: No Meds Allergies/Adverse Reactions: Allergies Allergy/AdvReac Type Severity Reaction Status Date / Time No Known Allergies Allergy Verified 11/08/18 10:38 Physical Exam - Constitutional Appears: Chronically Ill - Head Exam Head Exam: NORMAL INSPECTION - Eye Exam Eye Exam: PERRL - ENT Exam ENT Exam: Normal Exam - Neck Exam Neck exam: Positive for: Normal Inspection - Respiratory Exam Respiratory Exam: Decreased Breath Sounds (R base) Additional comments: Chest L Life-Port, mild tenderness R chest wall - Cardiovascular Exam Cardiovascular Exam: REGULAR RHYTHM - GI/Abdominal Exam GI & Abdominal Exam: Normal Bowel Sounds, Tenderness (mild epigastric). absent: Guarding, Rebound - Extremities Exam Extremities exam: Positive for: normal inspection - Back Exam Back exam: NORMAL INSPECTION - Neurological Exam Neurological exam: Alert, CN II-XII Intact, Oriented x3 Additional comments: no focal motor/sensory deficit - Psychiatric Exam Psychiatric exam: Anxious - Skin Skin Exam: Warm Results - Vital Signs Recent Vital Signs: Last Vital Signs Temp 99 F 11/08/18 13:29 Pulse 99 H 11/08/18 13:29 Resp 20 11/08/18 13:29 BP 144/93 H 11/08/18 13:29 Pulse Ox 97 11/08/18 13:00 reviewed J.P. - Labs Result Diagrams: 11/11/18 06:05 11/11/18 06:05 Labs: Laboratory Results - last 24 hr 11/08/18 11/08/18 11:21 11:21 WBC 2.0 L* D RBC 3.99 Hgb 11.1 L Hct 34.2 MCV 85.6 MCH 27.7 MCHC 32.3 L RDW 14.2 Plt Count 168 MPV 9.2 Neut % (Auto) 81.1 H Lymph % (Auto) 16.5 L Bacon % (Auto) 1.2 Eos % (Auto) 0.3 Baso % (Auto) 0.9 Neut # (Auto) 1.6 L Lymph # (Auto) 0.3 L Bacon # (Auto) 0.0 Eos # (Auto) 0.0 Baso # (Auto) 0.0 Neutrophils % (Manual) 80 H Band Neutrophils % 1 Lymphocytes % (Manual) 16 L Monocytes % (Manual) 2 Eosinophils % (Manual) 1 Platelet Estimate Normal Large Platelets Present Giant Platelets Present Poikilocytosis (manual Slight Anisocytosis (manual) Slight [place] Cells Slight Sodium 137 Potassium 4.2 Chloride 103 Carbon Dioxide 25 Anion Gap 13 BUN 9 Creatinine 0.5 L Est GFR ( Amer) > 60 Est GFR (Non-Af Amer) > 60 Random Glucose 122 H Calcium 8.8 Total Bilirubin 0.9 AST 131 H D ALT 119 H D Alkaline Phosphatase 165 H Total Protein 7.2 Albumin 3.8 Globulin 3.4 Albumin/Globulin Ratio 1.1 reviewed J.P. - Imaging and Cardiology CT scan - chest Status: Report reviewed by me (J.P.) Assessment & Plan (1) Gastroenteritis due to antineoplastic chemotherapy Status: Acute (2) Pleural effusion Assessment and Plan: recurrent, malignant 2nd to metastatic Breast Ca Status: Acute Priority: High (3) Chemotherapy induced neutropenia Status: Acute Priority: High (4) Breast cancer Assessment and Plan: Hx R Mastectomy Status: Acute Priority: High Comment: R Mastectomy (5) Lung metastasis Status: Acute (6) 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 Status: Acute (7) Liver metastasis Status: Acute Priority: High (8) Elevated liver enzymes Status: Acute Priority: High (9) Hyperthyroidism Status: Chronic Priority: Medium Comment: Tx Tapazole - Assessment and Plan (Free Text) Plan: IVF, clear fluids, Morphine, Tapazole, Hematology consult, after Patient stable evaluate for R Pleurodesis - Date & Time Date: 11/08/18 Time: 13:40
[2018-11-08] MEDS: Morphine 30 mg Immediate Release Tab PO PRN (16:14)
[2018-11-08] MEDS: Morphine 15 mg SR Tab PO SCH (21:48)
[2018-11-09] MEDS: Morphine 30 mg Immediate Release Tab PO PRN ×3 (06:11→23:38)
[2018-11-09] MEDS: Morphine 15 mg SR Tab PO SCH ×2 (10:09→21:22)
[2018-11-09] MEDS: methIMAzole 5 MG TAB PO SCH (12:53)
--- NOTE | 2018-11-09 16:49 | CP.PCM.PN ---
Subjective - Date & Time of Evaluation Date of Evaluation: 11/09/18 Time of Evaluation: 13:40 - Subjective Subjective: F/U Abdominal pain Tolerating well clear fluids, no abdominal pain, no N/V Objective - Vital Signs/Intake and Output Vital Signs (last 24 hours): Temp Pulse Resp BP Pulse Ox 98 F 64 20 116/67 99 11/09/18 09:00 11/09/18 09:00 11/09/18 09:00 11/09/18 09:00 11/09/18 09:00 - Medications Medications: Current Medications Docusate Sodium (Colace) 100 mg PO BID [facility] Last Admin: 11/09/18 16:09 Dose: 100 mg Home Med (Letrozole [Femara]) 2.5 mg PO DAILY [facility] Last Admin: 11/09/18 15:37 Dose: 2.5 mg Methimazole (Tapazole) 2.5 mg PO DAILY [facility] Last Admin: 11/09/18 12:53 Dose: 2.5 mg Morphine Sulfate (Morphine Extended Release Tab) 15 mg PO Q12 [facility] Last Admin: 11/09/18 10:09 Dose: 15 mg Morphine Sulfate (Morphine Immediate Release Tab) 30 mg PO Q6 PRN PRN Reason: Pain, severe (8-10) Last Admin: 11/09/18 14:05 Dose: 30 mg - Labs Labs: 11/08/18 11:21 11/08/18 11:21 - Constitutional Appears: Chronically Ill - Head Exam Head Exam: NORMAL INSPECTION - Eye Exam Eye Exam: PERRL - ENT Exam ENT Exam: Normal Exam - Neck Exam Neck Exam: Normal Inspection - Respiratory Exam Respiratory Exam: Decreased Breath Sounds (R base) Additional comments: L Life-Port mild tenderness, R chest wall mild tenderness - Cardiovascular Exam Cardiovascular Exam: REGULAR RHYTHM - GI/Abdominal Exam GI & Abdominal Exam: Soft, Tenderness, Normal Bowel Sounds. absent: Guarding, Rebound Additional comments: mild epigastric - Extremities Exam Extremities Exam: Normal Inspection - Back Exam Back Exam: NORMAL INSPECTION - Neurological Exam Neurological Exam: Alert, CN II-XII Intact, Oriented x3 Additional comments: no focal motor/sensory deficit - Psychiatric Exam Psychiatric exam: Anxious - Skin Skin Exam: Warm Assessment and Plan (1) Gastroenteritis due to antineoplastic chemotherapy Status: Acute (2) Chemotherapy induced neutropenia Status: Acute (3) Breast cancer Status: Acute (4) Liver metastasis Status: Acute (5) Lung metastasis Status: Acute (6) 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 Status: Acute (7) Elevated liver enzymes Status: Acute (8) Neoplastic pleural effusion Status: Acute (9) Pleural effusion Status: Acute (10) 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 Status: Acute - Assessment and Plan (Free Text) Plan: increase diet, continue IVF, Morphine, f/u Hematology consult
[2018-11-10 09:12] LABS: BASO % 0.1 % (0.0-2.0); EOS % 3.6 % (0.0-4.0); HEMOGLOBIN 10.6 g/dL (12.0-16.0); LYMPH # 0.6 K/uL (1.0-4.3); LYMPH % 84.3 % (20.0-40.0); MEAN CELL VOLUME 84.5 fl (81.0-99.0); MEAN CORPUSCULAR HEMOGLOBIN 27.8 pg (27.0-31.0); MEAN CORPUSCULAR HGB CONC 32.9 g/dL (33.0-37.0); MEAN PLATELET VOLUME 8.6 fl (7.2-11.7); MONO # 0.1 K/uL (0.0-0.8); MONO % 7.9 % (0.0-10.0); NEUT % 4.1 % (50.0-75.0); NRBC % 0.3 % (0.0-0.0); PLATELET COUNT 125 K/uL (130-400); RBC 3.81 Mil/uL (3.80-5.20); RED CELL DISTRIBUTION WIDTH 13.8 % (11.5-14.5)
[2018-11-10 09:21] LABS: WHITE BLOOD COUNT 0.7 K/uL (4.8-10.8)
[2018-11-10] MEDS: methIMAzole 5 MG TAB PO SCH (09:48)
[2018-11-10] MEDS: Morphine 15 mg SR Tab PO SCH ×2 (09:52→21:59)
--- NOTE | 2018-11-10 10:07 | CP.PCM.PN ---
Subjective - Date & Time of Evaluation Date of Evaluation: 11/10/18 Time of Evaluation: 09:48 - Subjective Subjective: This is a 58 yrs old female who has advancd metastatic cancer, and was discharged from the hospital on Saturday and was in the ER within 12 hrs with abdominal pain, nausea and vomiting. She had received chemotherapy 1 week ago. Her WBC was down to 2.0, hgb and platelets were normal. I had asked the er physician to give her Granix stat and then write an order for 2 days, It was not done and now her WBC is 0.7. with a ANC of 00. She also has lung metastasis with pleural effusion. She had one thoracentesis, but last week even though she was short of breath, she did not have enough pleural fluid for a thoracentesis and pleuradhesis. She was diagnosed to have the breast cancer 5 yrs ago, and after surgery and chemotherapy did well , and was doing well on letrozole until 2 months ago when she started having skeletal and lung metastasis . She received RT for palliation of pain and is doing fairly well with with present analgesics. Objective - Vital Signs/Intake and Output Vital Signs (last 24 hours): Temp Pulse Resp BP Pulse Ox 98.5 F 59 L 20 111/69 97 11/10/18 07:52 11/10/18 07:52 11/10/18 07:52 11/10/18 07:52 11/10/18 07:52 - Medications Medications: Current Medications Docusate Sodium (Colace) 100 mg PO BID [facility] Last Admin: 11/09/18 16:09 Dose: 100 mg Home Med (Letrozole [Femara]) 2.5 mg PO DAILY [facility] Last Admin: 11/09/18 15:37 Dose: 2.5 mg Methimazole (Tapazole) 2.5 mg PO DAILY [facility] Last Admin: 11/09/18 12:53 Dose: 2.5 mg Morphine Sulfate (Morphine Extended Release Tab) 15 mg PO Q12 [facility] Last Admin: 11/09/18 21:22 Dose: 15 mg Morphine Sulfate (Morphine Immediate Release Tab) 30 mg PO Q6 PRN PRN Reason: Pain, severe (8-10) Last Admin: 11/09/18 23:38 Dose: 30 mg - Labs Labs: 11/10/18 08:45 11/08/18 11:21 - Additional Findings Additional findings: Physical therapy alert,well oriented in no acute distress Neck; supple , no mass, no h/s megaly Chest; decresed breath sounds , Heart RSR, no murmur no rales gama rhonchi Abd; soft, no mass, no h/s megaly
--- NOTE | 2018-11-10 14:44 | CT ---
Date of service: 11/10/2018 PROCEDURE: CT Chest without contrast HISTORY: Pleural effusion COMPARISON: None available. TECHNIQUE: Contiguous axial images were obtained through the chest without intravenous contrast enhancement. Sagittal and coronal reconstructions were performed. Radiation dose (DLP): 467.76 mGy-cm. This CT exam was performed using one or more of the following dose reduction techniques: Automated exposure control, adjustment of the mA and/or kV according to patient size, and/or use of iterative reconstruction technique. FINDINGS: LUNGS: No infiltrate. There is mild right lower lobe compressive atelectasis. There are numerous small nodules at both lung bases, most of which are unchanged when compared to the prior examination. There is 1 left lower lobe nodule which is no longer masslike and is vague pleural-based density on the current examination. The largest nodule measures 12 mm in diameter in the lingular segment of the left upper lobe. Possible metastatic disease. MEDIASTINUM: Unremarkable thoracic aorta. No aneurysm. Normal-sized heart. Left central venous infusion port. Main pulmonary artery unremarkable. No vascular congestion. Subcarinal and right hilar lymphadenopathy persist. There is minimal atherosclerotic calcification of the thoracic aorta. PLEURA: There is persistent small right pleural effusion. There is no left pleural effusion. BONES: No fracture. No destructive lesion. UPPER ABDOMEN: Numerous low-attenuation masses throughout the right and left hepatic lobes suspicious for metastatic disease. OTHER FINDINGS: None. IMPRESSION: Multiple small bilateral pulmonary nodules. Small right pleural effusion. No change from prior. Mediastinal and right hilar lymphadenopathy. Probable hepatic metastasis.
[2018-11-10 15:26] LABS: ANISOCYTOSIS SLIGHT; EOSINOPHIL 4 % (0-7); LYMPHOCYTE 68 % (20-50); MONOCYTE 4 % (0-10); NEUTROPHIL 12 % (42-75); PLATELET ESTIMATE DECREASED (NORMAL); REACTIVE LYMPHOCYTES 12 % (0-0); TOTAL CELLS COUNTED 25
[2018-11-10 15:27] LABS: LARGE PLATELETS PRESENT; OVALOCYTES MODERATE; TEARDROP CELLS SLIGHT
[2018-11-10] MEDS: Morphine 30 mg Immediate Release Tab PO PRN (16:47)
--- NOTE | 2018-11-10 17:14 | CP.PCM.PN ---
Subjective - Date & Time of Evaluation Date of Evaluation: 11/10/18 Time of Evaluation: 20:00 - Subjective Subjective: F/U GE No SOB, no c/o of abdominal pain now, nausea improved. Objective - Vital Signs/Intake and Output Vital Signs (last 24 hours): Temp Pulse Resp BP Pulse Ox 98.2 F 79 20 107/70 98 11/10/18 16:28 11/10/18 16:28 11/10/18 16:28 11/10/18 16:28 11/10/18 16:28 - Medications Medications: Current Medications Docusate Sodium (Colace) 100 mg PO BID [facility] Last Admin: 11/10/18 16:48 Dose: 100 mg Home Med (Letrozole [Femara]) 2.5 mg PO DAILY [facility] Last Admin: 11/10/18 09:49 Dose: 2.5 mg Methimazole (Tapazole) 2.5 mg PO DAILY [facility] Last Admin: 11/10/18 09:48 Dose: 2.5 mg Morphine Sulfate (Morphine Extended Release Tab) 15 mg PO Q12 [facility] Last Admin: 11/10/18 09:52 Dose: 15 mg Morphine Sulfate (Morphine Immediate Release Tab) 30 mg PO Q6 PRN PRN Reason: Pain, severe (8-10) Last Admin: 11/10/18 16:47 Dose: 30 mg Ondansetron HCl (Zofran Inj) 4 mg IVP Q6 PRN PRN Reason: Nausea/Vomiting Last Admin: 11/10/18 16:46 Dose: 4 mg - Labs Labs: 11/10/18 08:45 11/08/18 11:21 - Constitutional Appears: Chronically Ill - Head Exam Head Exam: NORMAL INSPECTION - Eye Exam Eye Exam: PERRL - ENT Exam ENT Exam: Normal Exam - Neck Exam Neck Exam: Normal Inspection - Respiratory Exam Respiratory Exam: Decreased Breath Sounds (R base) Additional comments: L live port mild tenderness, R chest wall mild tenderness. - Cardiovascular Exam Cardiovascular Exam: REGULAR RHYTHM - GI/Abdominal Exam GI & Abdominal Exam: Soft, Tenderness (mild epigastric), Normal Bowel Sounds - Extremities Exam Extremities Exam: Normal Inspection - Back Exam Back Exam: NORMAL INSPECTION - Neurological Exam Neurological Exam: Alert, CN II-XII Intact, Oriented x3 Additional comments: No focal motor/sensory deficit. - Psychiatric Exam Psychiatric exam: Anxious - Skin Skin Exam: Warm Assessment and Plan (1) Gastroenteritis due to antineoplastic chemotherapy Status: Acute (2) Chemotherapy induced neutropenia Status: Acute (3) Breast cancer Status: Acute (4) Liver metastasis Status: Acute (5) Lung metastasis Status: Acute (6) 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 Status: Acute (7) Elevated liver enzymes Status: Acute (8) Neoplastic pleural effusion Status: Acute (9) Pleural effusion Status: Acute (10) 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 Status: Acute - Assessment and Plan (Free Text) Plan: WBC 0.7, in Granix, Tx by Hematology consultant rn. Continue with regular diet, Morphine, Tapazole, Zofran prn.
[2018-11-11 06:22] LABS: BASO % 0.1 % (0.0-2.0); EOS % 5.1 % (0.0-4.0); HEMOGLOBIN 9.6 g/dL (12.0-16.0); LYMPH # 0.7 K/uL (1.0-4.3); LYMPH % 79.6 % (20.0-40.0); MEAN CELL VOLUME 84.8 fl (81.0-99.0); MEAN PLATELET VOLUME 8.6 fl (7.2-11.7); MONO # 0.1 K/uL (0.0-0.8); MONO % 13.9 % (0.0-10.0); NEUT % 1.3 % (50.0-75.0); NRBC % 0.2 % (0.0-0.0); RBC 3.44 Mil/uL (3.80-5.20); RED CELL DISTRIBUTION WIDTH 14.2 % (11.5-14.5)
[2018-11-11 06:37] LABS: ALB/GLOB RATIO 1.1 (1.0-2.1); ALBUMIN 3.2 g/dL (3.5-5.0); ALT/SGPT 80 U/L (9-52); AST/SGOT 63 U/L (14-36); BLOOD UREA NITROGEN 5 mg/dl (7-17); CALCIUM 8.7 mg/dL (8.4-10.2); GFR NON-AFRICAN AMERICAN > 60
[2018-11-11 06:40] LABS: WHITE BLOOD COUNT 0.9 K/uL (4.8-10.8)
--- NOTE | 2018-11-11 08:25 | CP.PCM.PN ---
Subjective - Date & Time of Evaluation Date of Evaluation: 11/11/18 Time of Evaluation: 08:23 - Subjective Subjective: Pt is feeling much better. Pain well controlled, and with O2 her respirations are good as well. Her Wbc is still very low at .9, with an ANC of 0. Will continue the reverse isolation and granix. Objective - Vital Signs/Intake and Output Vital Signs (last 24 hours): Temp Pulse Resp BP Pulse Ox 98.4 F 66 19 103/67 96 11/11/18 08:03 11/11/18 08:03 11/11/18 08:03 11/11/18 08:03 11/11/18 08:03 - Medications Medications: Current Medications Docusate Sodium (Colace) 100 mg PO BID [facility] Last Admin: 11/10/18 16:48 Dose: 100 mg Home Med (Letrozole [Femara]) 2.5 mg PO DAILY [facility] Last Admin: 11/10/18 09:49 Dose: 2.5 mg Methimazole (Tapazole) 2.5 mg PO DAILY [facility] Last Admin: 11/10/18 09:48 Dose: 2.5 mg Morphine Sulfate (Morphine Extended Release Tab) 15 mg PO Q12 [facility] Last Admin: 11/10/18 21:59 Dose: 15 mg Morphine Sulfate (Morphine Immediate Release Tab) 30 mg PO Q6 PRN PRN Reason: Pain, severe (8-10) Last Admin: 11/10/18 16:47 Dose: 30 mg Ondansetron HCl (Zofran Inj) 4 mg IVP Q6 PRN PRN Reason: Nausea/Vomiting Last Admin: 11/10/18 16:46 Dose: 4 mg - Labs Labs: 11/11/18 06:05 11/11/18 06:05
[2018-11-11] MEDS: Morphine 15 mg SR Tab PO SCH ×2 (09:10→21:47)
[2018-11-11] MEDS: methIMAzole 5 MG TAB PO SCH (09:11)
[2018-11-11] MEDS: Enoxaparin 40 mg Syringe SC SCH (12:12)
[2018-11-11] MEDS: Morphine 30 mg Immediate Release Tab PO PRN ×2 (15:44→23:25)
--- NOTE | 2018-11-11 16:56 | CP.PCM.PN ---
Subjective - Date & Time of Evaluation Date of Evaluation: 11/11/18 Time of Evaluation: 12:50 - Subjective Subjective: F/U GE Pt awake, calm, no abdominal pain now, no SOB or SILVEIRA off O2 Objective - Vital Signs/Intake and Output Vital Signs (last 24 hours): Temp Pulse Resp BP Pulse Ox 98.3 F 86 19 122/75 97 11/11/18 16:05 11/11/18 16:05 11/11/18 16:05 11/11/18 16:05 11/11/18 16:05 - Medications Medications: Current Medications Docusate Sodium (Colace) 100 mg PO BID [facility] Last Admin: 11/11/18 16:01 Dose: 100 mg Enoxaparin Sodium (Lovenox) 40 mg SC DAILY [facility]; Protocol Last Admin: 11/11/18 12:12 Dose: 40 mg Home Med (Letrozole [Femara]) 2.5 mg PO DAILY [facility] Last Admin: 11/11/18 09:11 Dose: 2.5 mg Methimazole (Tapazole) 2.5 mg PO DAILY [facility] Last Admin: 11/11/18 09:11 Dose: 2.5 mg Morphine Sulfate (Morphine Extended Release Tab) 15 mg PO Q12 [facility] Last Admin: 11/11/18 09:10 Dose: 15 mg Morphine Sulfate (Morphine Immediate Release Tab) 30 mg PO Q6 PRN PRN Reason: Pain, severe (8-10) Last Admin: 11/11/18 15:44 Dose: 30 mg Ondansetron HCl (Zofran Inj) 4 mg IVP Q6 PRN PRN Reason: Nausea/Vomiting Last Admin: 11/10/18 16:46 Dose: 4 mg - Labs Labs: 11/11/18 06:05 11/11/18 06:05 - Constitutional Appears: Chronically Ill - Head Exam Head Exam: NORMAL INSPECTION - Eye Exam Eye Exam: PERRL - ENT Exam ENT Exam: Normal Exam - Neck Exam Neck Exam: Normal Inspection - Respiratory Exam Respiratory Exam: Decreased Breath Sounds (R base) Additional comments: L live-port with mild tenderness, R chest wall mild tenderness - Cardiovascular Exam Cardiovascular Exam: REGULAR RHYTHM - GI/Abdominal Exam GI & Abdominal Exam: Soft, Tenderness (mild epigastric), Normal Bowel Sounds - Extremities Exam Extremities Exam: Normal Inspection - Back Exam Back Exam: NORMAL INSPECTION - Neurological Exam Neurological Exam: Alert, CN II-XII Intact, Oriented x3 Additional comments: No focal motor/sensory deficit - Psychiatric Exam Psychiatric exam: Anxious - Skin Skin Exam: Warm Assessment and Plan (1) Gastroenteritis due to antineoplastic chemotherapy Status: Acute (2) Chemotherapy induced neutropenia Status: Acute (3) Breast cancer Status: Acute (4) Liver metastasis Status: Acute (5) Lung metastasis Status: Acute (6) 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 Status: Acute (7) Elevated liver enzymes Status: Acute (8) Neoplastic pleural effusion Status: Acute (9) Pleural effusion Status: Acute (10) 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 Status: Acute - Assessment and Plan (Free Text) Plan: CT Chest small R effusion, continue Morphine, Tapazole, Lovenox, Zofran prn and rest of Tx. Hematology consult appreciated
[2018-11-12] MEDS: Morphine 15 mg SR Tab PO SCH ×2 (08:58→21:46)
[2018-11-12] MEDS: Enoxaparin 40 mg Syringe SC SCH (08:59)
[2018-11-12] MEDS: methIMAzole 5 MG TAB PO SCH (09:00)
--- NOTE | 2018-11-12 10:01 | CP.PCM.PN ---
Subjective - Date & Time of Evaluation Date of Evaluation: 11/12/18 Time of Evaluation: 09:56 - Subjective Subjective: Pt has no pain and very little shortness of breath,Her appetite improved a little. CBC not yet available for today If ANC less than 1500,will continue to give her granix..If more than 1500,pt may be discharged. Objective - Vital Signs/Intake and Output Vital Signs (last 24 hours): Temp Pulse Resp BP Pulse Ox 98.4 F 86 20 110/69 93 L 11/12/18 08:42 11/12/18 08:42 11/12/18 08:42 11/12/18 08:42 11/12/18 08:42 - Medications Medications: Current Medications Docusate Sodium (Colace) 100 mg PO BID [facility] Last Admin: 11/12/18 09:01 Dose: 100 mg Enoxaparin Sodium (Lovenox) 40 mg SC DAILY [facility]; Protocol Last Admin: 11/12/18 08:59 Dose: 40 mg Home Med (Letrozole [Femara]) 2.5 mg PO DAILY [facility] Last Admin: 11/12/18 09:00 Dose: 2.5 mg Methimazole (Tapazole) 2.5 mg PO DAILY [facility] Last Admin: 11/12/18 09:00 Dose: 2.5 mg Morphine Sulfate (Morphine Extended Release Tab) 15 mg PO Q12 [facility] Last Admin: 11/12/18 08:58 Dose: 15 mg Morphine Sulfate (Morphine Immediate Release Tab) 30 mg PO Q6 PRN PRN Reason: Pain, severe (8-10) Last Admin: 11/11/18 23:25 Dose: 30 mg Ondansetron HCl (Zofran Inj) 4 mg IVP Q6 PRN PRN Reason: Nausea/Vomiting Last Admin: 11/10/18 16:46 Dose: 4 mg - Labs Labs: 11/11/18 06:05 11/11/18 06:05
[2018-11-12 10:39] LABS: BASO % 1.1 % (0.0-2.0); EOS # 0.1 K/uL (0.0-0.7); EOS % 3.9 % (0.0-4.0); HEMOGLOBIN 11.5 g/dL (12.0-16.0); LYMPH % 44.3 % (20.0-40.0); MEAN CELL VOLUME 86.5 fl (81.0-99.0); MEAN CORPUSCULAR HEMOGLOBIN 27.6 pg (27.0-31.0); MEAN CORPUSCULAR HGB CONC 31.9 g/dL (33.0-37.0); MEAN PLATELET VOLUME 8.7 fl (7.2-11.7); MONO # 0.4 K/uL (0.0-0.8); MONO % 18.2 % (0.0-10.0); NEUT # 0.8 K/uL (1.8-7.0); NEUT % 32.5 % (50.0-75.0); NRBC % 2.1 % (0.0-0.0); RBC 4.18 Mil/uL (3.80-5.20); RED CELL DISTRIBUTION WIDTH 14.2 % (11.5-14.5); WHITE BLOOD COUNT 2.4 K/uL (4.8-10.8)
[2018-11-12 10:42] LABS: PLATELET COUNT 78 K/uL (130-400)
--- NOTE | 2018-11-12 15:03 | CP.PCM.PN ---
Subjective - Date & Time of Evaluation Date of Evaluation: 11/12/18 Time of Evaluation: 12:00 - Subjective Subjective: F/U GE no AD, N/C, no SOB, no C/P, no nausea Objective - Vital Signs/Intake and Output Vital Signs (last 24 hours): Temp Pulse Resp BP Pulse Ox 98.4 F 86 20 110/69 93 L 11/12/18 08:42 11/12/18 08:42 11/12/18 08:42 11/12/18 08:42 11/12/18 08:42 - Medications Medications: Current Medications Docusate Sodium (Colace) 100 mg PO BID [facility] Last Admin: 11/12/18 09:01 Dose: 100 mg Home Med (Letrozole [Femara]) 2.5 mg PO DAILY [facility] Last Admin: 11/12/18 09:00 Dose: 2.5 mg Methimazole (Tapazole) 2.5 mg PO DAILY [facility] Last Admin: 11/12/18 09:00 Dose: 2.5 mg Morphine Sulfate (Morphine Extended Release Tab) 15 mg PO Q12 [facility] Last Admin: 11/12/18 08:58 Dose: 15 mg Morphine Sulfate (Morphine Immediate Release Tab) 30 mg PO Q6 PRN PRN Reason: Pain, severe (8-10) Last Admin: 11/11/18 23:25 Dose: 30 mg Ondansetron HCl (Zofran Inj) 4 mg IVP Q6 PRN PRN Reason: Nausea/Vomiting Last Admin: 11/10/18 16:46 Dose: 4 mg - Labs Labs: 11/12/18 10:00 11/11/18 06:05 - Constitutional Appears: Chronically Ill - Head Exam Head Exam: NORMAL INSPECTION - Eye Exam Eye Exam: PERRL - ENT Exam ENT Exam: Normal Exam - Neck Exam Neck Exam: Normal Inspection - Respiratory Exam Respiratory Exam: Decreased Breath Sounds (R base) Additional comments: L Life-Port mild tenderness, R chest wall no tenderness. - Cardiovascular Exam Cardiovascular Exam: REGULAR RHYTHM - GI/Abdominal Exam GI & Abdominal Exam: Soft, Normal Bowel Sounds - Extremities Exam Extremities Exam: Normal Inspection - Back Exam Back Exam: NORMAL INSPECTION - Neurological Exam Neurological Exam: Alert, CN II-XII Intact, Oriented x3. absent: Motor Sensory Deficit - Psychiatric Exam Psychiatric exam: Anxious - Skin Skin Exam: Warm Assessment and Plan (1) Gastroenteritis due to antineoplastic chemotherapy Status: Acute (2) Chemotherapy induced neutropenia Status: Acute (3) Breast cancer Status: Acute (4) Liver metastasis Status: Acute (5) Lung metastasis Status: Acute (6) 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 Status: Acute (7) Elevated liver enzymes Status: Acute (8) Neoplastic pleural effusion Status: Acute (9) Pleural effusion Status: Acute (10) 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 Status: Acute - Assessment and Plan (Free Text) Plan: slowly increasing wbc 2.4,Tx with Granix, on Neutropenic isolation, continue rest of Tx, f/u CBC am
[2018-11-12] MEDS: Morphine 30 mg Immediate Release Tab PO PRN (18:21)
[2018-11-12 19:50] LABS: ANISOCYTOSIS SLIGHT; BANDS 8 % (0-2); EOSINOPHIL 8 % (0-7); LARGE PLATELETS PRESENT; LYMPHOCYTE 42 % (20-50); METAMYELOCYTE 8 % (0-0); MONOCYTE 16 % (0-10); MYELOCYTE 10 % (0-0); NEUTROPHIL 4 % (42-75); NUCLEATED RED BLOOD CELL 2 % (0-0); PLATELET ESTIMATE DECREASED (NORMAL); POIKILOCYTOSIS SLIGHT; POLYCHROMIC SLIGHT; REACTIVE LYMPHOCYTES 4 % (0-0); TOTAL CELLS COUNTED 50
[2018-11-13 07:01] LABS: BASO % 0.2 % (0.0-2.0); EOS # 0.2 K/uL (0.0-0.7); EOS % 1.9 % (0.0-4.0); HEMOGLOBIN 10.5 g/dL (12.0-16.0); LYMPH # 1.6 K/uL (1.0-4.3); LYMPH % 16.4 % (20.0-40.0); MEAN CELL VOLUME 84.2 fl (81.0-99.0); MEAN CORPUSCULAR HEMOGLOBIN 27.6 pg (27.0-31.0); MEAN CORPUSCULAR HGB CONC 32.8 g/dL (33.0-37.0); MEAN PLATELET VOLUME 8.6 fl (7.2-11.7); MONO # 0.5 K/uL (0.0-0.8); MONO % 4.7 % (0.0-10.0); NEUT # 7.7 K/uL (1.8-7.0); NEUT % 76.8 % (50.0-75.0); NRBC % 1.2 % (0.0-0.0); RBC 3.79 Mil/uL (3.80-5.20); RED CELL DISTRIBUTION WIDTH 14.1 % (11.5-14.5); WHITE BLOOD COUNT 10.1 K/uL (4.8-10.8)
[2018-11-13] MEDS: Morphine 15 mg SR Tab PO SCH (08:22)
[2018-11-13] MEDS: methIMAzole 5 MG TAB PO SCH (08:23)
[2018-11-13 08:39] VITALS: BP 117/74; PULSE 101; RESP 20; TEMP 98; O2SAT 93
--- NOTE | 2018-11-13 08:40 | CP.PCM.PN ---
Subjective - Date & Time of Evaluation Date of Evaluation: 11/13/18 Time of Evaluation: 08:38 - Subjective Subjective: Pt is a little nauseous.but otherwise is doing well. Her WBC count is up to 10.1, platelets 92K and hgb 10.5gms. , and ANC 7.7. D/c granix. She may be discharged when ok with PMD. Objective - Vital Signs/Intake and Output Vital Signs (last 24 hours): Temp Pulse Resp BP Pulse Ox 98.2 F 89 18 111/72 95 11/13/18 00:18 11/13/18 00:18 11/13/18 00:18 11/13/18 00:18 11/13/18 00:18 - Medications Medications: Current Medications Docusate Sodium (Colace) 100 mg PO BID [facility] Last Admin: 11/13/18 08:22 Dose: 100 mg Home Med (Letrozole [Femara]) 2.5 mg PO DAILY [facility] [place] Last Admin: 11/13/18 08:23 Dose: 2.5 mg Methimazole (Tapazole) 2.5 mg PO DAILY [facility] [place] Last Admin: 11/13/18 08:23 Dose: 2.5 mg Morphine Sulfate (Morphine Extended Release Tab) 15 mg PO Q12 [facility] [place] Last Admin: 11/13/18 08:22 Dose: 15 mg Morphine Sulfate (Morphine Immediate Release Tab) 30 mg PO Q6 PRN PRN Reason: Pain, severe (8-10) Last Admin: 11/12/18 18:21 Dose: 30 mg Ondansetron HCl (Zofran Inj) 4 mg IVP Q6 PRN PRN Reason: Nausea/Vomiting Last Admin: 11/13/18 08:22 Dose: 4 mg - Labs Labs: 11/13/18 06:30 11/11/18 06:05
--- NOTE | 2018-11-13 16:48 | CP.PCM.DIS ---
Provider - Provider Date of Admission: 11/08/18 12:10 Attending physician: Marvin Quiñones MD Consults: 11/08/18 12:14 Physician Consult Stat Comment: Consulting Provider: Randi Goodman Consulting Physician: Randi Goodman Reason for Consult: Breast Ca, pleural effusion 11/11/18 09:00 Social Work Referral Routine Comment: lives alone Physician Instructions: Reason For Exam: lives alone Diagnosis - Discharge Diagnosis (1) Gastroenteritis due to antineoplastic chemotherapy Status: Acute (2) Chemotherapy induced neutropenia Status: Acute Priority: High (3) Breast cancer Status: Acute Priority: High (4) Liver metastasis Status: Acute Priority: High (5) Lung metastasis Status: Acute (6) 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 Status: Acute (7) Elevated liver enzymes Status: Acute Priority: High (8) Neoplastic pleural effusion Status: Acute (9) Pleural effusion Status: Acute Priority: High (10) 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 Status: Acute Hospital Course - Lab Results Lab Results: Most Recent Lab Values WBC 10.1 K/uL (4.8-10.8) D 11/13/18 06:30 RBC 3.79 Mil/uL (3.80-5.20) L 11/13/18 06:30 Hgb 10.5 g/dL (12.0-16.0) L 11/13/18 06:30 Hct 31.9 % (34.0-47.0) L 11/13/18 06:30 MCV 84.2 fl (81.0-99.0) D 11/13/18 06:30 MCH 27.6 pg (27.0-31.0) 11/13/18 06:30 MCHC 32.8 g/dL (33.0-37.0) L 11/13/18 06:30 RDW 14.1 % (11.5-14.5) 11/13/18 06:30 Plt Count 92 K/uL (130-400) L 11/13/18 06:30 MPV 8.6 fl (7.2-11.7) 11/13/18 06:30 Neut % (Auto) 76.8 % (50.0-75.0) H 11/13/18 06:30 Lymph % (Auto) 16.4 % (20.0-40.0) L 11/13/18 06:30 [place] % (Auto) 4.7 % (0.0-10.0) 11/13/18 06:30 Eos % (Auto) 1.9 % (0.0-4.0) 11/13/18 06:30 Baso % (Auto) 0.2 % (0.0-2.0) 11/13/18 06:30 Neut # (Auto) 7.7 K/uL (1.8-7.0) H 11/13/18 06:30 Lymph # (Auto) 1.6 K/uL (1.0-4.3) 11/13/18 06:30 [place] # (Auto) 0.5 K/uL (0.0-0.8) 11/13/18 06:30 Eos # (Auto) 0.2 K/uL (0.0-0.7) 11/13/18 06:30 Baso # (Auto) 0.0 K/uL (0.0-0.2) 11/13/18 06:30 Neutrophils % (Manual) 4 % (42-75) L 11/12/18 10:00 Band Neutrophils % 8 % (0-2) H 11/12/18 10:00 Lymphocytes % (Manual) 42 % (20-50) 11/12/18 10:00 Reactive Lymphs % 4 % (0-0) H 11/12/18 10:00 Monocytes % (Manual) 16 % (0-10) H 11/12/18 10:00 Eosinophils % (Manual) 8 % (0-7) H 11/12/18 10:00 Metamyelocytes % 8 % (0-0) H 11/12/18 10:00 Myelocytes % 10 % (0-0) H 11/12/18 10:00 Nucleated RBC % 2 % (0-0) H 11/12/18 10:00 Platelet Estimate Decreased (NORMAL) L 11/12/18 10:00 Large Platelets Present 11/12/18 10:00 Giant Platelets Present 11/08/18 11:21 Polychromasia Slight 11/12/18 10:00 Poikilocytosis (manual Slight 11/12/18 10:00 Anisocytosis (manual) Slight 11/12/18 10:00 Tear Drop Cells Slight 11/10/18 08:45 Ovalocytes Moderate 11/10/18 08:45 [place] Cells Slight 11/08/18 11:21 Sodium 139 mmol/l (132-148) 11/11/18 06:05 Potassium 4.0 MMOL/L (3.6-5.0) 11/11/18 06:05 Chloride 105 mmol/L (98-107) 11/11/18 06:05 Carbon Dioxide 29 mmol/L (22-30) 11/11/18 06:05 Anion Gap 9 (10-20) L 11/11/18 06:05 BUN 5 mg/dl (7-17) L 11/11/18 06:05 Creatinine 0.6 mg/dl (0.7-1.2) L 11/11/18 06:05 Est GFR ( Amer) > 60 11/11/18 06:05 Est GFR (Non-Af Amer) > 60 11/11/18 06:05 Random Glucose 91 mg/dL (65-105) 11/11/18 06:05 Calcium 8.7 mg/dL (8.4-10.2) 11/11/18 06:05 Magnesium 2.3 MG/DL (1.6-2.3) 11/10/18 08:45 Total Bilirubin 0.7 mg/dl (0.2-1.3) 11/11/18 06:05 AST 63 U/L (14-36) H D 11/11/18 06:05 ALT 80 U/L (9-52) H D 11/11/18 06:05 Alkaline Phosphatase 132 U/L (38-126) H 11/11/18 06:05 Total Protein 6.1 G/DL (6.3-8.2) L 11/11/18 06:05 Albumin 3.2 g/dL (3.5-5.0) L 11/11/18 06:05 Globulin 3.0 gm/dL (2.2-3.9) 11/11/18 06:05 Albumin/Globulin Ratio 1.1 (1.0-2.1) 11/11/18 06:05 Discharge Exam - Head Exam Head Exam: NORMAL INSPECTION Discharge Plan - Discharge Medications Prescriptions: Ondansetron ODT [Zofran ODT] 4 mg PO Q6 PRN #20 odt PRN Reason: Nausea/Vomiting - Follow Up Plan Condition: FAIR Disposition: HOME/ ROUTINE Instructions: Acute Pain, Adult (DC), Pleural Effusion (DC) Additional Instructions: hacer bettie con tripp primario dentro de [address] sem[address] hacer bettie [address] Goodman en 2 semanas Referrals: Malik Swanson MD [Medical Doctor] - Randi Goodman MD [Staff Provider] -
== END 2018-11-13 16:05 | disposition home or self-care (01) | DRG 398 ==
LOC: H.ER 10:28 → H.ERHOLD 12:10 → H.MEDSURG1 13:34
PROVIDERS: ADMIT Internal Medicine Pulmonary Disease; ATTEND Internal Medicine Pulmonary Disease
DX: D70.1 Agranulocytosis secondary to cancer chemotherapy (principal); K52.1 Toxic gastroenteritis and colitis; C78.00 Secondary malignant neoplasm of unspecified lung; C78.7 Secondary malignant neoplasm of liver and intrahepatic bile duct; J91.0 Malignant pleural effusion; E05.90 Thyrotoxicosis, unspecified without thyrotoxic crisis or storm; E86.0 Dehydration; C50.919 Malignant neoplasm of unspecified site of unspecified female breast; T45.1X5A Adverse effect of antineoplastic and immunosuppressive drugs, initial encounter; E78.5 Hyperlipidemia, unspecified; E78.00 Pure hypercholesterolemia, unspecified; Z79.811 Long term (current) use of aromatase inhibitors; Z98.51 Tubal ligation status; Z90.11 Acquired absence of right breast and nipple